=== PATIENT | female | born 1965 | race Caucasian/White ===

== ENCOUNTER 2024-12-31 16:32 | Emergency (ER) | payer OTHER, SELFPAY ==
--- NOTE | 2024-12-31 16:32 | ED.FEMALEGU ---
HPI - Female Genitourinary General Chief complaint: Urogenital-Female Stated complaint: Urinary Problem Time Seen by Provider: 12/31/24 16:45 Source: patient, RN notes reviewed and old records reviewed Mode of arrival: ambulatory Limitations: no limitations History of Present Illness HPI Narrative: 59-year-old female presents to the [facility] with 2 day history of urgency, frequency, pressure with urination. Denies abdominal pain, fevers, nausea, vomiting. Denies back pain. No CVA tenderness Related Data Home Medications ?Medication ?Instructions ?Recorded ?Confirmed ?Last Taken ?Type Humalog Pen 12/31/24 Unknown History Ozempic 12/31/24 Unknown History aspirin 12/31/24 Unknown History atorvastatin 12/31/24 Unknown History carvedilol 12/31/24 Unknown History citalopram 12/31/24 Unknown History ezetimibe 12/31/24 Unknown History lisinopril 12/31/24 Unknown History potassium 12/31/24 Unknown History Allergies Allergy/AdvReac Type Severity Reaction Status Date / Time hydrocodone AdvReac Intermediate vomiting Verified 08/03/18 11:00 Review of Systems Review of Systems: All systems reviewed & are unremarkable except as noted in HPI and below Constitutional: Constitutional: Reports no additional constitutional complaints ENT: Reports system reviewed and no additional complaints, except as documented Cardiovascular: Cardiovascular: Reports no additional cardiovascular complaints, Denies chest pain and Denies dyspnea Respiratory: Respiratory: Reports no additional respiratory complaints, Denies chest congestion, Denies cough and Denies dyspnea Genitourinary: Genitourinary: Reports as per HPI Musculoskeletal: Musculoskeletal: Reports no additional musculoskeletal complaints Integumentary/Breasts: Skin/Breast: Reports system reviewed and no additional complaints, except as docu PMFSH Past Medical History Medical History (Updated 12/31/24 @ 16:54 by Violette Freire APRN) History of high cholesterol History of high blood pressure Comments At the time of my signature, I reviewed and agree with the nursing past medical, surgical, social, and family history. There is no relevant family history pertinent to the patient complaint. Exam Const: General: cooperative, healthy appearing, comfortable, no acute distress, well developed, alert and well nourished Nutritional Appearance: well nourished Orientation/consciousness: patient oriented x3 Limitations: no limitations HENMT: Head: normal to inspection Eyes: General: appearance normal, both eyes and all related structures Alignment and Position: alignment normal Neck: Neck: normal visual inspection, full ROM, no lymphadenopathy and no meningeal signs Chest: Chest palpation & inspection: normal inspection of the chest Resp: Effort & Inspection: normal respiratory effort and able to speak in complete sentences Auscultation: clear to auscultation bilaterally, no crackles, no rales, no rhonchi and no wheezes Cardio: Rate: regular rate : General: Yes no CVA tenderness Back/Spine/Pelvis: Back: No back tenderness Skin: General skin exam: normal color and no rashes or lesions noted Neuro: General: patient oriented x3, gait normal, moves all extremities and no meningeal signs Cognition (Neuro): normal cognition Speech: normal speech Gait exam (Neuro): Normal gait present Extrem: General: normal to inspection, full ROM, capillary refill normal and normal gait Psych: Appearance: grossly normal and well kempt Mental Status: mental status grossly normal Speech and movement: Normal speech and movement present and Clear speech present Affect: normal affect Attitude: cooperative Course Course Level of Care: Express Care Visit Vital Signs Vital signs: Vital Signs Temperature 98 F 12/31/24 16:36 Pulse Rate 85 12/31/24 16:36 Respiratory Rate 18 12/31/24 16:36 Blood Pressure 141/74 H 12/31/24 16:36 Pulse Oximetry 97 12/31/24 16:36 Oxygen Delivery Room Air 12/31/24 16:36 Temperature 98 F 12/31/24 16:36 Pulse Rate 85 12/31/24 16:36 Respiratory Rate 18 12/31/24 16:36 Blood Pressure 141/74 H 12/31/24 16:36 Pulse Oximetry 97 12/31/24 16:36 Oxygen Delivery Room Air 12/31/24 16:36 Reviewed MDM - Female Genitourinary MDM Narrative Medical decision making narrative: Patient sitting in exam. Nontoxic vitals stable. Patient in no acute distress. Patient presents with concerns for UTI. Positive blood, positive leukocytes, will treat with Augmentin send for culture. Patient appropriate for outpatient treatment with close follow-up Discharge instructions reviewed with patient, as well as provided in writing per nursing staff. The instructions also include specific and strict return/GO TO THE ER as well as f/u information. All questions have been answered, and the patient deny any further questions with discharge and discharge plan. Some parts of this dictation were generated by voice recognition software and may contain typographical and/or grammatical inaccuracies. Differential Diagnosis Differential diagnosis: Likely urinary tract infection and cystitis Lab Data Labs: Lab Results 12/31/24 Range/Units 16:45 POC Urine Color Tea colored POC Urine Clarity Cloudy POC Urine pH 5.5 POC Ur Specif Hancock 1.020 POC Urine Protein 1+ (Negative) POC Ur Glucose (UA) Negative (Negative) POC Urine Ketones Negative (Negative) POC Urine Blood 3+ (Negative) POC Urine Nitrite Negative (Negative) POC Urine Bilirubin Negative (Negative) POC Urine Urobilinogen 0.2 POC U Leukocyte Esteras 3+ (Negative) Reviewed Critical Care Time Critical Care Time Critical Care Time: No Discharge Plan Discharge Clinical Impression: Urinary tract infection Qualifiers: Urinary tract infection type: acute cystitis Hematuria presence: with hematuria Qualified Code(s): N30.01 - Acute cystitis with hematuria Patient Disposition: Home Condition: Stable Instructions: Antibiotic Form, Urinary Tract Infection in Women (ED) Additional Instructions: Increased water intake Take Tylenol as needed for pain Take antibiotic as prescribed Today your urine dip showed a probability of a UTI. You have been prescribed an antibiotic. Your urine will be sent to our lab for a culture. If at that time a bacteria grows that is not covered by the antibiotic prescribed you will be notified. Follow-up with primary care For new or worsening symptoms go directly to the emergency room Patient Language: Rwandan Prescriptions: New amoxicillin-pot clavulanate 875-125 mg tablet 1 tablet PO Q12H Qty: 10 0RF No Action atorvastatin citalopram Ozempic aspirin lisinopril Humalog Pen carvedilol ezetimibe potassium Follow-up/Referrals: Luis Miguel,Romaine Dawn MD [Primary Care Provider] - 2 Weeks (express care follow up ) Stand Alone Forms: Work/School Release IP Time of Disposition: 16:50
--- OUTSIDE RECORDS SUMMARY | 2024-12-31 16:33 | XMS_ITS | Encounter Summary ---
Author Organization [facility] Address [address] [place] [address] Phone Care Team Providers Care Licensing Specialist Name Role Phone Romaine Bolanos MD Primary Care Provider [phone] Curry Garcia MD Unavailable [phone] Robbin Shelton PAC Unavailable [phone] Reason for Visit * Reason Comments Medication Refill Encounter Details Date Type Department Care Team (Late st Contact Info) Description 09/25/2020 Refill [facility] - Internal Medicine [facility] [address] [place] [address] Romaine Bolanos MD [address] [place] [address] Medication Refill Social History Tobacco Use Types Packs/Day Years Used Date Smoking Tobacco: Every Day Cigarettes 1 30 Smokeless Tobacco: Never Alcohol Use Standard Drinks/Week Comments Yes 0 (1 standard drink = 0.6 oz pur e alcohol) rarely PHQ-2 Answer Date Recorded Total Score - Questions 1-9 0 06/23 Comments No Sex and Gender Information Value Date Recorded Sex Assigned at Not on file Legal Sex Female 10:23 PM CDT Gender Identity Not on file Sexual Orientation Not on file documented as of this encounter Miscellaneous Notes * Telephone Encounter - Dyana Shin RN - 09/25/2020 9:23 AM CST Please review and sign. ADING MACHINE OPERATOR documented in this encounter Plan of Treatment Upcoming Encounters Date Type Department Care Team (Late st Contact Info) Description 01/07/2025 2:30 PM CDT Physical Therapy [facility] at [facility] [address], [address] [place] [address] Joan Kaufman, PAC [address] [place] [address] Zainab Butt, PT [place] Discharge Disposition: Discharged to home or Selfcare 01/10/2025 10:00 AM CDT Hospital [facility] [address] [place] [address] Katherine Mijares MD PhD [address] [place] [address] 01/10/2025 10:00 AM CDT - 01/10/2025 10:20 AM CDT Surgery [facility] [address] [place] [address] Katherine Mijares MD PhD [address] [place] [address] CATARACT EXTRACTION WITH INTRAOCULAR LENS PLACEMENT, RIGHT EYE 01/13/2025 3:30 PM CDT Office Visit [facility] - Internal Medicine - [place] [address] [place] [address] Romaine Bolanos MD [address] [place] [address] 01/14/2025 2:30 PM CDT Physical Therapy [facility] at [facility] [address], [address] [place] [address] Joan Kaufman, PAC [address] [place] [address] Zainab Butt, PT [place] Scheduled Procedures Name Priority Associated Diagnoses Date/Ti me CATARACT EXTRACTION WITH IOL IMPLANT VISUALLY SIGNIFICANT CATARACT, RIGHT EYE 01/10/2025 10:00 AM CDT documented as of this encounter Visit Diagnoses Not on filedocumented in this encounter Additional Health Concerns Infection Onset Date Last Indicated Resolved Time Respiratory Rule Out - RPA 11/13/2022 11/13/2022 0 11/13/2022 10:28 AM THREADING MACHINE OPERATOR Respiratory Rule Out - RPA 11/28/2022 11/28/2022 0 11/28/2022 1:36 PM THREADING MACHINE OPERATOR Assessment Noted Time PHQ-9 Depression Total Score: 0 07/20/20 10:00 AM CDT documented as of this encounter Care Teams Licensing Specialist Relationship Specialty Start Date End Date Romaine Bolanos MD [address] [place] [address] PCP - General Internal Medicine 12/05/15 Curry Garcia MD #[address] [address] General Surgery 12/06/15 Robbin Shelton, PAC [address] [place] [address] Physician Life Enrichment Manager Physician Life Enrichment Manager 02/11/24 documented as of this encounter
--- OUTSIDE RECORDS SUMMARY | 2024-12-31 16:33 | XMS_ITS | Encounter Summary ---
Author Organization [facility] Address [address] [place] [address] Phone Care Team Providers Care Front Desk Monitor Name Role Phone Romaine Bolanos MD Primary Care Provider [phone] Curry Garcia MD Unavailable [phone] Robbin Shelton PAC Unavailable [phone] Reason for Visit * Reason Comments Medication Refill Encounter Details Date Type Department Care Team (Late st Contact Info) Description 01/14/2021 Refill [facility] - Internal Medicine [facility] [address] [place] [place] [address] Romaine Bolanos MD [address] [place] [address] Medication Refill Social History Tobacco Use Types Packs/Day Years Used Date Smoking Tobacco: Every Day Cigarettes 1 30 Smokeless Tobacco: Never Alcohol Use Standard Drinks/Week Comments Yes 0 (1 standard drink = 0.6 oz pur e alcohol) rarely PHQ-2 Answer Date Recorded Total Score - Questions 1-9 0 06/23 Sexually Active Control Partners Comments Not Currently Comments No Sex and Gender Information Value Date Recorded Sex Assigned at Not on file Legal Sex Female 10:23 PM CDT Gender Identity Not on file Sexual Orientation Not on file COVID-19 Exposure Response Date Recorded In the last month, have you been in contact with someone who was confirmed or suspected to have Coronavirus / COVID-19? No / Unsure 12/26/2020 2:11 PM CDT documented as of this encounter Miscellaneous Notes * Telephone Encounter - Dyana Shin RN - 01/15/2021 8:15 AM CDT Please review and sign. documented in this encounter Plan of Treatment Upcoming Encounters Date Type Department Care Team (Late st Contact Info) Description 01/07/2025 2:30 PM CDT Physical Therapy [facility] at [facility] [address] [facility], [address] [address] Joan Kaufman, PAC [address] [place] [address] Zainab Butt, PT [place] Discharge Disposition: Discharged to home or Selfcare 01/10/2025 10:00 AM CDT Hospital [facility] [address] [place] [address] Katherine Mijares MD PhD [address] [place] [address] 01/10/2025 10:00 AM CDT - 01/10/2025 10:20 AM CDT Surgery [facility] [address] [place] [address] Katherine Mijares MD PhD [address] [place] [address] CATARACT EXTRACTION WITH INTRAOCULAR LENS PLACEMENT, RIGHT EYE 01/13/2025 3:30 PM CDT Office Visit [facility] - Internal Medicine - [place] [address] [place] [address] Romaine Bolanos MD [address] [place] [address] 01/14/2025 2:30 PM CDT Physical Therapy [facility] at [facility] [address] [facility], [facility] [address] [place] [address] Joan Kaufman, PAC [address] [place] [address] Zainab Butt, PT [place] Scheduled Procedures Name Priority Associated Diagnoses Date/Ti me CATARACT EXTRACTION WITH IOL IMPLANT VISUALLY SIGNIFICANT CATARACT, RIGHT EYE 01/10/2025 10:00 AM CDT documented as of this encounter Visit Diagnoses Not on filedocumented in this encounter Additional Health Concerns Infection Onset Date Last Indicated Resolved Time Respiratory Rule Out - RPA 11/13/2022 11/13/2022 0 11/13/2022 10:28 AM WINDING INSPECTOR AND TESTER Respiratory Rule Out - RPA 11/28/2022 11/28/2022 0 11/28/2022 1:36 PM WINDING INSPECTOR AND TESTER Assessment Noted Time PHQ-9 Depression Total Score: 0 07/20/20 10:00 AM CDT documented as of this encounter Care Teams Front Desk Monitor Relationship Specialty Start Date End Date Romaine Bolanos MD [address] [place] [address] PCP - General Internal Medicine 12/05/15 Curry Garcia MD #2 [facility] [address] [place] [address] General Surgery 12/06/15 Robbin Shelton PAC [address] [place] [address] Physician Carbonation Equipment Tender Physician Carbonation Equipment Tender 02/11/24 documented as of this encounter
--- OUTSIDE RECORDS SUMMARY | 2024-12-31 16:33 | XMS_ITS | Encounter Summary ---
Author Organization [facility] Address [address] [place] [address] Phone Care Team Providers Care Lead Manufacturing Technician Name Role Phone Romaine Bolanos MD Primary Care Provider [phone] Curry Garcia MD Unavailable [phone] Robbin Shelton PAC Unavailable [phone] Reason for Visit * Reason Comments Medication Refill Encounter Details Date Type Department Care Team (Late st Contact Info) Description 10/26/2023 Refill [facility] - Internal Medicine [facility] [address] [facility] [facility] [place] [address] Romaine Bolanos MD [address] [place] [address] Medication Refill Social History Tobacco Use Types Packs/Day Years Used Date Smoking Tobacco: Every Day Cigarettes 1 30 Passive Smoke Exposure: Current Smokeless Tobacco: Never Alcohol Use Standard Drinks/Week Comments Yes 0 (1 standard drink = 0.6 oz pur e alcohol) rarely PHQ-2 Answer Date Recorded Total Score - Questions 1-9 0 01/2023 Sexually Active Control Partners Comments Not Currently Comments No Sex and Gender Information Value Date Recorded Sex Assigned at Not on file Legal Sex Female 10:23 PM CDT Gender Identity Not on file Sexual Orientation Not on file documented as of this encounter Miscellaneous Notes * Telephone Encounter - Violette Ramos RN - 10/27/2023 9:30 AM CST Medication failed the protocol, provider to review and approve the medication order if appropriate. Requested Prescriptions Pending Prescriptions Disp Refills lisinopril (PRINIVIL, ZESTRIL) 20 MG Tablet [Pharmacy Med Name: LISINOPRIL TABS 20MG] 90 Tablet 3 Sig: TAKE 1 TABLET DAILY CASSANDRA Inhibitors Protocol Failed - 10/26/2023 7:56 PM Failed - Serum potassium on record in past 12 months POTASSIUM Date Value Ref Range Status 09/20/2022 3.8 3.5 - 5.1 mmol/L Final Failed - GFR on record in past 12 months GFR, EST. NONAFRICAN Date Value Ref Range Status 09/20/2022 >60 >=60 Final Passed - Blood pressure on record in past 12 months Clinician-entered: BP Readings from Last 3 Encounters: 08/26/23 138/70 08/03/23 132/72 07/14/23 140/78 Patient-entered: No data recorded Passed - No positive test in the past 12 months or most recent test was negative Passed - Visit with relevant provider in past 12 months or upcoming 90 days Recent Visits Date Type Provider Dept 08/26/23 Office Visit Romaine Bolanos MD [facility] 07/14/23 Appointment Romaine Bolanos MD [facility] [place] 05/20/23 Office Visit Romaine Bolanos MD [facility] 12/19/22 Office Visit Romaine Bolanos MD [facility] 12/05/22 Telemedicine Romaine Bolanos MD [facility] [place] 11/28/22 Telemedicine Romaine Bolanos MD [facility] Showing recent visits within past 365 days and meeting all other requirements Future Appointments Date Type Provider Dept 11/19/23 Appointment Corrie Gandhi [facility] [place] 11/25/23 Appointment Romaine Bolanos MD [facility] Showing future appointments within next 90 days and meeting all other requirements Passed - No active on record ING MACHINE OPERATOR documented in this encounter Plan of Treatment Upcoming Encounters Date Type Department Care Team (Late st Contact Info) Description 01/07/2025 2:30 PM CDT Physical Therapy [facility] Rehab at [address], [address] [place] [address] Joan Kaufman, PAC [address] [place] [address] Zainab Butt, PT [place] Discharge Disposition: Discharged to home or Selfcare 01/10/2025 10:00 AM CDT Hospital [facility] [address] [place] [address] Katherine Mijares MD PhD [address] [place] [address] 01/10/2025 10:00 AM CDT - 01/10/2025 10:20 AM CDT Surgery [facility] Per[facility] [address] [place] [address] Katherine Mijares MD PhD [address] [place] [address] CATARACT EXTRACTION WITH INTRAOCULAR LENS PLACEMENT, RIGHT EYE 01/13/2025 3:30 PM CDT Office Visit [facility] - Internal Medicine - [place] [address] [place] [address] Romaine Bolanos MD [address] [place] [address] 01/14/2025 2:30 PM CDT Physical Therapy [facility] at [facility] [address] [facility], [address] [place] [address] Joan Kaufman, PAC [address] [place] [address] Zainab Butt, PT [place] Scheduled Procedures Name Priority Associated Diagnoses Date/Ti me CATARACT EXTRACTION WITH IOL IMPLANT VISUALLY SIGNIFICANT CATARACT, RIGHT EYE 01/10/2025 10:00 AM CDT documented as of this encounter Visit Diagnoses Not on filedocumented in this encounter Additional Health Concerns Assessment Noted Time PHQ-9 Depression Total Score: 0 08/26/20 23 3:03 PM FOILING MACHINE OPERATOR documented as of this encounter Care Teams Lead Manufacturing Technician Relationship Specialty Start Date End Date Romaine Bolanos MD [address] [place] [address] PCP - General Internal Medicine 12/05/15 Curry Garcia MD #[address] [address] General Surgery 12/06/15 Robbin Shelton PAC [address] [place] [address] Physician Fisher Eel Physician Fisher Eel 02/11/24 documented as of this encounter
--- OUTSIDE RECORDS SUMMARY | 2024-12-31 16:33 | XMS_ITS | Encounter Summary ---
Author Organization [facility] Address [address] [place] [address] Phone Care Team Providers Care Inspector Assemblies And Installations Name Role Phone Romaine Bolanos MD Primary Care Provider [phone] Curry Garcia MD Unavailable [phone] Robbin Shelton PAC Unavailable [phone] Reason for Visit * Reason Comments Medication Refill Encounter Details Date Type Department Care Team (Late st Contact Info) Description 11/15/2020 Refill [facility] - Internal Medicine [facility] [address] [place] [address] Romaine Bolanos MD [address] [place] [address] Medication Refill Social History Tobacco [...] have Coronavirus / COVID-19? No / Unsure 10/20/2020 2:16 PM ENRICHMENT DIRECTOR documented as of this encounter Miscellaneous Notes * Telephone Encounter - Dyana Shin RN - 11/15/2020 4:00 PM CST Please review and sign. CHMENT DIRECTOR documented in this encounter Plan of Treatment Upcoming Encounters Date Type Department Care Team (Late st Contact Info) Description 01/07/2025 2:30 PM CDT [facility] 200 [facility], [address] [address] Joan Kaufman, PAC [address] [place] [address] Zainab Butt, PT [place] Discharge Disposition: Discharged to home or Selfcare 01/10/2025 10:00 AM CDT [facility] 1 [place] [address] Katherine Mijares MD PhD [address] [place] [address] 01/10/2025 10:00 AM CDT - 01/10/2025 10:20 AM CDT [facility] [address] [place] [address] Katherine Mijares MD PhD [address] [place] [address] CATARACT EXTRACTION WITH INTRAOCULAR LENS PLACEMENT, RIGHT EYE 01/13/2025 3:30 PM CDT [facility] - [place] [address] [place] [address] Romaine Bolanos MD [address] [place] [address] 01/14/2025 2:30 PM CDT Physical Therapy [facility] at [facility] [address], [address] [place] [address] Joan Kaufman, PAC [address] [place] [address] Zainab Butt, PT [place] Scheduled Procedures Name Priority Associated Diagnoses Date/Ti me CATARACT EXTRACTION WITH IOL IMPLANT VISUALLY SIGNIFICANT CATARACT, RIGHT EYE 01/10/2025 10:00 AM CDT documented as of this encounter Visit Diagnoses Not on filedocumented in this encounter Additional Health Concerns Infection Onset Date Last Indicated Resolved Time Respiratory Rule Out - RPA 11/13/2022 11/13/2022 0 11/13/2022 10:28 AM ENRICHMENT DIRECTOR Respiratory Rule Out - RPA 11/28/2022 11/28/2022 0 11/28/2022 1:36 PM ENRICHMENT DIRECTOR Assessment Noted Time PHQ-9 Depression Total Score: 0 07/20/20 20 10:00 AM CDT documented as of this encounter Care Teams Inspector Assemblies And Installations Relationship Specialty Start Date End Date Romaine Bolanos MD [address] [place] [address] PCP - General Internal Medicine 12/05/15 Curry Garcia MD #2 [facility] [address] [place] [address] General Surgery 12/06/15 Robbin Shelton PAC [address] [place] [address] Physician Mortgage Manager Physician Mortgage Manager 02/11/24 documented as of this encounter
--- OUTSIDE RECORDS SUMMARY | 2024-12-31 16:33 | XMS_ITS | Encounter Summary ---
Author Organization [facility] Address [address] [place] [address] Phone Care Team Providers Care Curriculum And Assessment Coordinator Name Role Phone Romaine Bolanos MD Primary Care Provider [phone] Curry Garcia MD Unavailable [phone] Robbin Shelton PAC Unavailable [phone] Reason for Visit * Reason Comments Medication Refill Encounter Details Date Type Department Care Team (Late st Contact Info) Description 12/17/2020 Refill [facility] Medical [facility] - Internal Medicine [facility] [address] [place] [address] Romaine Bolanos MD [address] [place] [address] Medication Refill Social History Tobacco [...] Telephone Encounter - Dyana Shin RN - 12/18/2020 7:57 AM CDT Please review and sign. documented in this encounter Plan of Treatment Upcoming Encounters Date Type Department Care Team (Late st Contact Info) Description 01/07/2025 2:30 PM CDT Physical Therapy [facility] [address] [place] [address] Joan Kaufman, PAC [address] [place] [address] Zainab Butt, PT [place] Discharge Disposition: Discharged to home or Selfcare 01/10/2025 10:00 AM CDT Hospital [facility] [address] [place] [address] Katherine Mijares MD PhD [address]1 [place] [address] 01/10/2025 10:00 AM CDT - 01/10/2025 10:20 AM CDT Surgery [facility] [address] [place] [address] Katherine Mijares MD PhD #1 [place] [address] CATARACT EXTRACTION WITH INTRAOCULAR LENS PLACEMENT, RIGHT EYE 01/13/2025 3:30 PM CDT Office Visit [facility] Medical Group - Internal Medicine - [place] [address] [place] [id number] Romaine Bolanos MD [address] [place] [address] 01/14/2025 2:30 PM CDT Physical Therapy [facility] at [facility] [address] [place] [address] Joan Kaufman, PAC [address] [place] [address] Zainab Butt, PT [place] Scheduled Procedures Name Priority Associated Diagnoses Date/Ti me CATARACT EXTRACTION WITH IOL IMPLANT VISUALLY SIGNIFICANT CATARACT, RIGHT EYE 01/10/2025 10:00 AM CDT documented as of this encounter Visit Diagnoses Not on filedocumented in this encounter Additional Health Concerns Infection Onset Date Last Indicated Resolved Time Respiratory Rule Out - RPA 11/13/2022 11/13/2022 0 11/13/2022 10:28 AM BOWL TOPPER Respiratory Rule Out - RPA 11/28/2022 11/28/2022 0 11/28/2022 1:36 PM BOWL TOPPER Assessment Noted Time PHQ-9 Depression Total Score: 0 07/20/20 20 10:00 AM CDT documented as of this encounter Care Teams Curriculum And Assessment Coordinator Relationship Specialty Start Date End Date Romaine Bolanos MD [address] [place] [address] PCP - General Internal Medicine 12/05/15 Curry Garcia MD #[address] [address] General Surgery 12/06/15 Robbin Shelton, ARA [address]1 [place] [address] Physician Aquaculture And Fisheries Professor Physician Aquaculture And Fisheries Professor 02/11/24 documented as of this encounter
--- OUTSIDE RECORDS SUMMARY | 2024-12-31 16:33 | XMS_ITS | Encounter Summary ---
Author Organization [facility] Address [address] [place] [address] Phone Care Team Providers Care Supervisor Die Casting Name Role Phone Romaine Bolanos MD Primary Care Provider [phone] Curry Garcia MD Unavailable [phone] Robbin Shelton PAC Unavailable [phone] Reason for Visit * Reason Comments Medication Refill Encounter Details Date Type Department Care Team (Late st Contact Info) Description 05/23/2022 Refill [facility] - Internal Medicine [facility] [address] [place] [address] Romaine Bolanos MD [address] [place] [address] Medication Refill Social History Tobacco Use Types Packs/Day Years Used Date Smoking Tobacco: Every Day Cigarettes 1 30 Smokeless Tobacco: Never Alcohol Use Standard Drinks/Week Comments Yes 0 (1 standard drink = 0.6 oz pur e alcohol) rarely PHQ-2 Answer Date Recorded Total Score - Questions 1-9 0 11/2020 Sexually Active Control Partners Comments Not Currently Comments No Sex and Gender Information Value Date Recorded Sex Assigned at Not on file Legal Sex Female 10:23 PM CDT Gender Identity Not on file Sexual Orientation Not on file COVID-19 Exposure Response Date Recorded In the last 10 days, have la u been in contact with someone who was confirmed or suspected to have Coronavirus/COVID-19? No / Unsure 04/24/2022 6:05 AM CDT documented as of this encounter Miscellaneous Notes * Telephone Encounter - Violette Ramos RN - 05/24/2022 8:33 AM CDT Medication failed the protocol, provider to review and approve the medication order if appropriate. Requested Prescriptions Pending Prescriptions Disp Refills Jardiance 10 MG Tablet [Pharmacy Med Name: JARDIANCE TABS 10MG] 90 Tablet 3 Sig: TAKE 1 TABLET DAILY SGLT2 Inhibitors Protocol Failed - 05/23/2022 7:54 PM Failed - HgA1C on record in past 6 months HGB-A1C Date Value Ref Range Status 07/25/2021 7.0 (H) 4.0 - 6.0 % Final 01/16/2021 7.3 % Final Failed - GFR greater than or equal to 30 in past 6 months GFR, EST. NONAFRICAN Date Value Ref Range Status 07/25/2021 >60 >=60 Final Passed - No test in the past 12 months or most recent test was negative Passed - No active on record Passed - Visit with relevant provider in past 6 months or upcoming 90 days Recent Visits Date Type Provider Dept 02/06/22 Office Visit Romaine [facility] MD [facility] [place] Showing recent visits within past 182 days and meeting all other requirements Future Appointments Date Type Provider Dept 05/28/22 Appointment Romaine Bolanos MD [facility] [place] Showing future appointments within next 90 days and meeting all other requirements documented in this encounter Plan of Treatment Upcoming Encounters Date Type Department Care Team (Late st Contact Info) Description 01/07/2025 2:30 PM CDT Physical Therapy [facility] [address] [place] [phone] Joan Kaufman, PAC [address] [place] [address] Zainab Butt, PT [place] Discharge Disposition: Discharged to home or Selfcare 01/10/2025 10:00 AM CDT Hospital Encounter [facility] 1 [place] [address] Katherine Mijares MD PhD [address]1 [place] [address] 01/10/2025 10:00 AM CDT - 01/10/2025 10:20 AM CDT Surgery [facility] 1 [place] [address] Katherine Mijares MD PhD [address] [place] [address] CATARACT EXTRACTION WITH INTRAOCULAR LENS PLACEMENT, RIGHT EYE 01/13/2025 3:30 PM CDT [facility] [place] [address] [place] [address] Romaine Bolanos MD [address] [place] [address] 01/14/2025 2:30 PM CDT Physical Therapy [facility] at [facility] [place] [address] [place] [address] Joan Kaufman, PAC [address] [place] [address] Zainab Butt, PT [place] Scheduled Procedures Name Priority Associated Diagnoses Date/Ti me CATARACT EXTRACTION WITH IOL IMPLANT VISUALLY SIGNIFICANT CATARACT, RIGHT EYE 01/10/2025 10:00 AM CDT documented as of this encounter Visit Diagnoses Not on filedocumented in this encounter Additional Health Concerns Infection Onset Date Last Indicated Resolved Time Respiratory Rule Out - RPA 11/13/2022 11/13/2022 0 11/13/2022 10:28 AM SENIOR TECHNICAL BUSINESS ANALYST Respiratory Rule Out - RPA 11/28/2022 11/28/2022 0 11/28/2022 1:36 PM SENIOR TECHNICAL BUSINESS ANALYST Assessment Noted Time PHQ-9 Depression Total Score: 0 07/25/20 21 12:00 PM CDT documented as of this encounter Care Teams Supervisor Die Casting Relationship Specialty Start Date End Date Romaine Bolanos MD [address] [place] [address] PCP - General Internal Medicine 12/05/15 Curry Garcia MD [address] [address] General Surgery 12/06/15 Robbin Sheltno PAC [address] [place] [address] Physician Aquatic Ecologist Physician Aquatic Ecologist 02/11/24 documented as of this encounter
--- OUTSIDE RECORDS SUMMARY | 2024-12-31 16:33 | XMS_ITS | Encounter Summary ---
Author Organization [facility] Address [address] [place] [address] Phone Care Team Providers Care Mineral Resources Inspector Name Role Phone Romaine Bolanos MD Primary Care Provider [phone] Curry Garcia MD Unavailable [phone] Robbin Shelton PAC Unavailable [phone] Reason for Visit * Reason Comments Medication Refill Encounter Details Date Type Department Care Team (Late st Contact Info) Description 02/01/2024 Refill [facility] Medical Group - Internal Medicine [facility] [address] [place] [address] Romaine Bolanos MD [address] [place] [address] Medication Refill Social History Tobacco Use Types Packs/Day Years Used Date Smoking Tobacco: Every Day Cigarettes 1 30 Passive Smoke Exposure: Current Smokeless Tobacco: Never Alcohol Use Standard Drinks/Week Comments Yes 0 (1 standard drink = 0.6 oz pur e alcohol) rarely [facility] Utilities Answer Date Recorded In the past 12 months has e electric, gas, oil, or water company threatened to shut off services in your home? No 11/25/2023 Social Connection and Isolat ion Panel [NHANES] Answer Date Recorded In a typical week, how many times do you talk on the phone with family, friends, or neighbors? More than three times a week 11/25/2023 How often do you get togethe r with friends or relatives? More than three times a week 11/25/2023 How often do you attend chur or christianity services? More than 4 times per year 11/25/2023 Do you belong to any clubs o r organizations such as judaism groups, unions, fraternal or athletic groups, or school groups? Yes 11/25/2023 How often do you attend meet ings of the clubs or organizations you belong to? More than 4 times per year 11/25/2023 Are you , , di vorced, , never , or living with a partner? 11/25/2023 AUDIT-C Answer Date Recorded Q1: How often do you have a drink containing alcohol? Never 11/25/2023 Q2: How many drinks containi ng alcohol do you have on a typical day when you are drinking? Patient does not drink Q3: How often do you have si x or more drinks on one occasion? Never 11/25/2023 Overall Financial Resource Strain (CARDIA) Answe r Date Recorded How hard is it for you to pa y for the very basics like food, housing, medical care, and heating? Not hard at all 11/25/2023 PHQ-2 Answer Date Recorded Total Score - Questions 1-9 0 01/2024 [facility] - Occupational Stress Questionnaire Answer Date Recorded Do you feel stress - tense, restless, nervous, or anxious, or unable to sleep at night because your mind is troubled all the time - these days? Not at all 11/25/2023 Exercise Vital Sign Answer Date Recorde d On average, how many days pe r week do you engage in moderate to strenuous exercise (like a brisk walk)? 0 days 11/25/2023 On average, how many minutes do you engage in exercise at this level? 0 min 11/25/2023 Hunger Vital Sign Answer Date Recorded Within the past 12 months, y ou worried that your food would run out before you got the money to buy more. Never true 11/25/19 24 Within the past 12 months, t he food you bought just didn't last and you didn't have money to get more. Never true 11/25/2023 PRAPARE - Transportation Answer Date Re corded In the past 12 months, has l ack of transportation kept you from medical appointments or from getting medications? No 01/2024 In the past 12 months, has l ack of transportation kept you from meetings, work, or from getting things needed for daily living? No 11/25/2023 Housing Stability Vital Sign Answer Wesley e Recorded In the last 12 months, was t here a time when you were not able to pay the mortgage or rent on time? No 11/25/2023 In the last 12 months, how many places have you lived? 2 11/25/2023 In the last 12 months, was t here a time when you did not have a steady place to sleep or slept in a longterm (including now)? No 11/25/2023 Sexually Active Control Partners Comments Not Currently Comments No Sex and Gender Information Value Date Recorded Sex Assigned at Not on file Legal Sex Female 10:23 PM CDT Gender Identity Not on file Sexual Orientation Not on file documented as of this encounter Miscellaneous Notes * Telephone Encounter - Violette Ramos RN - 02/02/2024 8:40 AM CDT Medication(s) [facility] and signed per [facility] Medication Refill Standing Order for Pediatricand Adult Patients. Requested Prescriptions Pending Prescriptions Disp Refills atorvastatin (LIPITOR) 80 MG Tablet [Pharmacy Med Name: ATORVASTATIN TABS 80MG] 90 Tablet 3 Sig: TAKE 1 TABLET NIGHTLY Hmg CoA Reductase Inhibitors Protocol Passed - 02/01/2024 8:19 AM Passed - Visit with relevant provider in past 12 months or upcoming 90 days Recent Visits Date Type Provider Dept 12/25/23 Office Visit Romaine Bolanos MD [facility] 11/25/23 Office Visit Romaine Bolanos MD [facility] 08/26/23 Office Visit Romaine Bolanos MD [facility] 07/14/23 Appointment Romaine Bolanos MD [facility] 05/20/23 Office Visit Romaine Bolanos MD [facility] Showing recent visits within past 365 days and meeting all other requirements Future Appointments Date Type Provider Dept 03/16/24 Appointment [facility] [place] Showing future appointments within next 90 days and meeting all other requirements Passed - Lipid panel in past 12 months LDL Date Value Ref Range Status 11/25/2023 61 <130 mg/dL Final HDL CHOLESTEROL Date Value Ref Range Status 11/25/2023 31 (L) >40 mg/dL Final CHOLESTEROL Date Value Ref Range Status 11/25/2023 130 <200 mg/dL Final TRIGLYCERIDES Date Value Ref Range Status 11/25/2023 192 (H) <150 mg/dL Final VLDL Date Value Ref Range Status 11/25/2023 38 10 - 50 mg/dL Final CHOL/HDL RATIO Date Value Ref Range Status 11/25/2023 4.2 0.0 - 4.4 Final NON-HDL CHOLESTEROL Date Value Ref Range Status 11/25/2023 99 <130 mg/dL Final Passed - CMP in past 12 months SODIUM Date Value Ref Range Status 11/25/2023 143 136 - 145 mmol/L Final POTASSIUM Date Value Ref Range Status 11/25/2023 2.9 (L) 3.5 - 5.1 mmol/L Final CHLORIDE Date Value Ref Range Status 11/25/2023 100 98 - 107 mmol/L Final CO2, VENOUS Date Value Ref Range Status 11/25/2023 33 (H) 22 - 30 mmol/L Final ANION GAP Date Value Ref Range Status 11/25/2023 12.9 <18.0 mmol/L Final GLUCOSE Date Value Ref Range Status 11/25/2023 111 (H) 70 - 99 mg/dL Final BUN Date Value Ref Range Status 11/25/2023 8 (L) 10 - 20 mg/dL Final CREATININE, BLOOD Date Value Ref Range Status 11/25/2023 0.74 0.60 - 1.00 mg/dL Final BUN/CREATININE RATIO Date Value Ref Range Status 11/25/2023 11 (L) 12 - 20 ratio Final TOTAL PROTEIN Date Value Ref Range Status 11/25/2023 7.4 6.3 - 8.2 g/dL Final ALBUMIN Date Value Ref Range Status 11/25/2023 3.6 3.5 - 5.0 g/dL Final A/G RATIO Date Value Ref Range Status 11/25/2023 0.9 (L) 1.0 - 2.2 Final CALCIUM Date Value Ref Range Status 11/25/2023 8.8 8.7 - 10.5 mg/dL Final T BILI Date Value Ref Range Status 11/25/2023 0.7 0.2 - 1.2 mg/dL Final SGOT (AST) Date Value Ref Range Status 11/25/2023 31 5 - 34 U/L Final SGPT (ALT) Date Value Ref Range Status 11/25/2023 22 0 - 55 U/L Final ALKALINE PHOSPHATASE Date Value Ref Range Status 11/25/2023 108 40 - 150 U/L Final GFR, EST. NONAFRICAN Date Value Ref Range Status 11/25/2023 >60 >=60 Final GFR, EST. Date Value Ref Range Status 11/25/2023 >60 >=60 Final GFR, ESTIMATED Date Value Ref Range Status 11/25/2023 >60 >=60 Final Comment: Creatinine Clearance is the preferred criteria for selecting drug dose adjustments in renally impaired patients. The GFR is provided as additional pertinent clinical information. GFR is reported in mL/min/1.73 sq m. Calculation based on the Chronic Kidney Disease Epidemiology Collaboration (CKD- EPI) equation refitwithout adjustment for race. IS THE PATIENT REQUIRED TO BE FASTING? Date Value Ref Range Status 11/25/2023 No Final lisinopril (PRINIVIL, ZESTRIL) 20 MG Tablet [Pharmacy Med Name: LISINOPRIL TABS 20MG] 90 Tablet 3 Sig: TAKE 1 TABLET DAILY CASSANDRA Inhibitors Protocol Passed - 02/01/2024 8:19 AM Passed - Serum potassium on record in past 12 months POTASSIUM Date Value Ref Range Status 11/25/2023 2.9 (L) 3.5 - 5.1 mmol/L Final Passed - Blood pressure on record in past 12 months Clinician-entered: BP Readings from Last 3 Encounters: 01/18/24 138/80 12/25/23 130/66 11/25/23 130/68 Patient-entered: No data recorded Passed - Visit with relevant provider in past 12 months or upcoming 90 days Recent Visits Date Type Provider Dept 12/25/23 Office Visit Romaine Bolanos MD [facility] 11/25/23 Office Visit Romaine Bolanos MD [facility] 08/26/23 Office Visit Romaine Bolanos MD [facility] 07/14/23 Appointment Romaine Bolanos MD [facility] 05/20/23 Office Visit Romaine Bolaons MD [facility] Showing recent visits within past 365 days and meeting all other requirements Future Appointments Date Type Provider Dept 03/16/24 Appointment Romaine Bolanos MD [facility] Showing future appointments within next 90 days and meeting all other requirements Passed - GFR on record in past 12 months GFR, EST. NONAFRICAN Date Value Ref Range Status 11/25/2023 >60 >=60 Final documented in this encounter Plan of Treatment Upcoming Encounters Date Type Department Care Team (Late st Contact Info) Description 01/07/2025 2:30 PM CDT Physical Therapy [facility] [address] [place] [address] Joan Kaufman, PAC [address] [address] Zainab Butt, PT [place] Discharge Disposition: Discharged to home or Selfcare 01/10/2025 10:00 AM CDT Hospital Encounter [facility] Per[facility] 1 [place] [address] Katherine Mijares MD PhD #1 [place] [address] 01/10/2025 10:00 AM CDT - 01/10/2025 10:20 AM CDT Surgery [facility] 1 [place] [address] Katherine Mijares MD PhD [address] [place] [address] CATARACT EXTRACTION WITH INTRAOCULAR LENS PLACEMENT, RIGHT EYE 01/13/2025 3:30 PM CDT Office Visit [facility] Medical Group - Internal Medicine - [place] [address] [place] [address] Romaine Bolanos MD [address] [place] [address] 01/14/2025 2:30 PM CDT Physical Therapy [facility] at [facility] [address] [place] [address] Joan Kaufman, PAC [address] [place] [address] Zainab Butt, PT [place] Scheduled Procedures Name Priority Associated Diagnoses Date/Ti me CATARACT EXTRACTION WITH IOL IMPLANT VISUALLY SIGNIFICANT CATARACT, RIGHT EYE 01/10/2025 10:00 AM CDT documented as of this encounter Visit Diagnoses Not on filedocumented in this encounter Additional Health Concerns Assessment Noted Time PHQ-9 Depression Total Score: 0 11/25/19 3:06 PM SPLITTING MACHINE OPERATOR documented as of this encounter Care Teams Mineral Resources Inspector Relationship Specialty Start Date End Date Romaine Bolanos MD [address] [place] [address] PCP - General Internal Medicine 12/05/15 Curry Garcia MD [address] [facility] [address] [place] [address] General Surgery 12/06/15 Robbin Shelton PAC #1 [place] [address] Physician Hydraulics Teacher Physician Hydraulics Teacher 02/11/24 documented as of this encounter
--- OUTSIDE RECORDS SUMMARY | 2024-12-31 16:33 | XMS_ITS | Clinical Summary ---
Author Organization [facility] Address [address] [place] [address] Care Team Providers Care Research Greenhouse Supervisor Name Role Phone Rodger Bolanos MD Primary Care Provider [phone] Source Comments [facility],non-owned Affiliates and Associated Physician Practices is amultiple site organization consisting of ambulatory clinics and hospital sitesin [place], [place], [place] and [place]. This disclosure is being madepursuant to the Care Everywhere program and may not contain all information available regarding this patient. Last updated 18.[facility] Allergies No known active allergies Medications * Be aware that medications may not be up to date on this document. Alwaysverify current medications with the patient. Medication Sig Dispensed Refills Start Date End Date Status carvedilol (COREG) 12.5 MG tablet Take 12.5 mg by mouth 2 times daily with morning and evening meal Active atorvastatin (LIPITOR) 80 MG tablet Take 80 mg by mouth at bedtime Active empagliflozin (JARDIANCE) 10 MG tablet Take 10 mg by mouth once daily Active Aspirin (ASPIR-LOW) 81 MG Active escitalopram (LEXAPRO) 5 MG tablet Take 5 mg by mouth once daily Active lisinopril (PRINIVIL; ZESTRIL) 20 MG tablet Take 20 mg by mouth once daily Active omeprazole (PRILOSEC) 20 MG capsule Take 20 mg by mouth daily before breakfast Activ e glipiZIDE (GLUCOTROL) 10 MG tablet Take 10 mg by mouth daily before breakfast Activ e Insulin Lispro (HUMALOG KWIKPEN) 100 UNIT/ML Inject 30 Units subcutaneously Active Social History Tobacco Use Types Packs/Day Years Used Date Smoking Tobacco: Every Day Smokeless Tobacco: Never Sex and Gender Information Value Date Recorded Sex Assigned at Not on file Gender Identity Not on file Sexual Orientation Not on file Last Filed Vital Signs Vital Sign Reading Time Taken Comments Blood Pressure 124/80 06/29/2019 4:25 PM CDT Pulse 74 06/29/2019 4:25 PM CDT Temperature 36.7 C (98.1 F) 06/29/2019 4:25 PM CDT Respiratory Rate - - Oxygen Saturation - - Inhaled Oxygen Concentration - - Weight 84.8 kg (187 lb) 06/29/2019 4:25 PM CDT Height 160 cm (5' 3 ) 06/29/2019 4:25 PM CDT Body Mass Index 33.13 06/29/2019 4:25 PM CDT Plan of Treatment Health Maintenance Due Date Last Done Comments COLOGUARD (AGES 45-75) - COL ON CA SCREENING 1967 COLON MONITORING 1967 COLONOSCOPY - COLON CA SCREENING 1967 CT COLONOGRAPHY - COLON CA SCREENING 1967 Colorectal Cancer Screening 1967 FIT - COLON CA SCREENING 1967 FLEX SIG - COLON CA SCREENING 1967 MAMMOGRAM 1967 PAP SMEAR 1967 HIV SCREENING 12/30/1982 HEPATITIS C SCREENING 12/26/1985 DTAP/TDAP/TD VACCINES (1 - Tdap) 12/30/1986 HEPATITIS B VACCINE (1 of 3 - 19+ 3-dose series) 12/30/1986 PNEUMOCOCCAL VACCINE 50+ (1 of 2 - PCV) 12/30/1986 PNEUMOCOCCAL VACCINE (1 of 2 - PCV) 12/30/1986 ZOSTER VACCINE (1 of 2) 12/30/2017 SCREENING FOR DIABETES 06/29/2019 COVID-19 VACCINE (1 - 2023-2 5 season) 2024 DEPRESSION SCREENING 09/22/2024 INFLUENZA VACCINE (Season Ended) 2025 07/31/20 15 HIB VACCINE Aged Out No longer eligi ble based on patient's age to complete this topic HPV VACCINE Aged Out No longer eligi ble based on patient's age to complete this topic MENINGOCOCCAL (Group B) VACC INE SHARED DECISION-MAKING Aged Out No longer eligibl e based on patient's age to complete this topic MENINGOCOCCAL GROUPS A/C/Y/W VACCINE Aged Out No longer eligible b ased on patient's age to complete this topic Care Teams Research Greenhouse Supervisor Relationship Specialty Start Date End Date Rodger Bolanos MD [address] [place] [id number] PCP - General 09/06/08
--- OUTSIDE RECORDS SUMMARY | 2024-12-31 16:33 | XMS_ITS | Encounter Summary ---
Author Organization [facility] Address [address] [place] [address] Phone Care Team Providers Care Director Database Name Role Phone Romaine Bolanos MD Primary Care Provider [phone]- [phone] Curry Garcia MD Unavailable [phone] Robbin Shelton PAC Unavailable [phone] Reason for Visit * Reason Comments Medication Refill Encounter Details Date Type Department Care Team (Late st Contact Info) Description 10/13/[address] [facility] Medical Group - Internal Medicine [facility] [address] [facility] [place] [place] [address] Romaine Bolanos MD [address] [place] [address] Medication Refill Social History Tobacco [...] Telephone Encounter - Dyana Shin RN - 10/13/2020 7:58 AM CST Please review and sign. LE ATTACHER documented in this encounter Plan of Treatment Upcoming Encounters Date Type Department Care Team (Late st Contact Info) Description 01/07/2025 2:30 PM CDT [facility] [address], [address] [place] [address] Joan Kaufman, PAC [address] [place] [address] Zainab Butt, PT [place] Discharge Disposition: Discharged to home or Selfcare 01/10/2025 10:00 AM CDT [facility] 1 [place] [address] Katherine Mijares MD PhD [address]1 [place] [address] 01/10/2025 10:00 AM CDT - 01/10/2025 10:20 AM CDT [facility] 1 [place] [address] Katherine Mijares MD PhD [address] [place] [address] CATARACT EXTRACTION WITH INTRAOCULAR LENS PLACEMENT, RIGHT EYE 01/13/2025 3:30 PM CDT Office Visit [facility] Medical Group - Internal Medicine - [place] [address] [place] [address] Romaine Bolanos MD [address] [place] [address] 01/14/2025 2:30 PM CDT [facility] [address] [place] [address] Joan Kaufman, PAC [address] [place] [address] Zainab Butt, PT [place] Scheduled Procedures Name Priority Associated Diagnoses Date/Ti me CATARACT EXTRACTION WITH IOL IMPLANT VISUALLY SIGNIFICANT CATARACT, RIGHT EYE 01/10/2025 10:00 AM CDT documented as of this encounter Visit Diagnoses Not on filedocumented in this encounter Additional Health Concerns Infection Onset Date Last Indicated Resolved Time Respiratory Rule Out - RPA 11/13/2022 11/13/2022 0 11/13/2022 10:28 AM BUCKLE ATTACHER Respiratory Rule Out - RPA 11/28/2022 11/28/2022 0 11/28/2022 1:36 PM BUCKLE ATTACHER Assessment Noted Time PHQ-9 Depression Total Score: 0 07/20/20 10:00 AM CDT documented as of this encounter Care Teams Director Database Relationship Specialty Start Date End Date Romaine Bolanos MD [address] [place] [address] PCP - General Internal Medicine 12/05/15 Curry Garcia MD [address] [address] General Surgery 12/06/15 Robbin Shelton, PAC [address] [place] [address] Physician Junior Programmer Analyst Physician Junior Programmer Analyst 02/11/24 documented as of this encounter
--- OUTSIDE RECORDS SUMMARY | 2024-12-31 16:33 | XMS_ITS | Encounter Summary ---
Author Organization [facility] Address [address] [place] [address] Phone Care Team Providers Care Fleet Service Manager Name Role Phone Romaine Bolanos MD Primary Care Provider [phone]- [phone] Curry Garcia MD Unavailable [phone] Robbin Shelton PAC Unavailable [phone] Reason for Visit * Reason Comments Medication Refill Encounter Details Date Type Department Care Team (Late st Contact Info) Description 01/16/[address] [facility] Medical Group - Internal Medicine [facility] [address] [place] [address] Romaine Bolanos MD [address] [place] [address] Medication Refill Social History Tobacco Use Types Packs/Day Years Used Date Smoking Tobacco: Every Day Cigarettes 1 30 Passive Smoke Exposure: Current Smokeless Tobacco: Never Alcohol Use Standard Drinks/Week Comments Yes 0 (1 standard drink = 0.6 oz pur e alcohol) rarely [facility] Utilities Answer Date Recorded In the past [...] How often do you attend chur or jew services? More than 4 times per year 11/25/2023 Do you belong to any clubs o r organizations such as synagogue groups, unions, fraternal or athletic groups, or [...] Total Score - Questions 1-9 0 01/2024 [facility] Occupational Stress Questionnaire Answer Date [...] place to sleep or slept in a jail (including now)? No 11/25/2023 Sexually Active Control Partners Comments Not Currently Comments No Sex and Gender Information Value Date Recorded Sex Assigned at Not on file Legal Sex Female 10:23 PM CDT Gender Identity Not on file Sexual Orientation Not on file documented as of this encounter Miscellaneous Notes * Telephone Encounter - Violette Ramos RN - 01/16/2024 8:34 AM CDT Medication(s) [facility] Medication Refill Standing Order for Pediatricand Adult Patients. Requested Prescriptions Pending Prescriptions Disp Refills carvedilol (COREG) 12.5 MG Tablet [Pharmacy Med Name: CARVEDILOL (IR) TABS 12.5MG] 180 Tablet 3 Sig: TAKE 1 TABLET TWICE A DAY Beta-Blockers Protocol Passed - 01/16/2024 1:08 AM Passed - BP on record in the past year Clinician-entered: BP Readings from Last 3 Encounters: 12/25/23 130/66 11/25/23 130/68 08/26/23 138/70 Patient-entered: No data recorded Passed - Visit with relevant provider in past 12 months or upcoming 90 days Recent Visits Date Type Provider Dept 12/25/23 Office [facility]/25[facility]23 Office [facility] 08/26/23 Office Visit Rom[facility] MD [facility] 07/14/23 Appointment Romaine Bolanos MD [facility] 05/20/23 Office Visit Romaien Bolanos MD [facility] Showing recent visits within past 365 days and meeting all other requirements Future Appointments Date Type Provider Dept 03/16/24 Appointment Romaine Bolanos MD [facility] Showing future appointments within next 90 days and meeting all other requirements glipiZIDE (GLUCOTROL) 5 MG Tablet [Pharmacy Med Name: GLIPIZIDE TABS 5MG] 180 Tablet 3 Sig: TAKE 1 TABLET TWICE A DAY WITH MEALS (DOSE CHANGE) Sulfonylureas Protocol Passed - 01/16/2024 1:08 AM Passed - Visit with relevant provider in past 6 months or upcoming 90 days Recent Visits Date Type Provider Dept 12/25/23 Office Visit Romaine Bolanos MD [facility] 11/25/23 Office Visit Romaine Bolanos MD [facility] 08/26/23 Office Visit Romaine Bolanos MD [facility] Showing recent visits within past 182 days and meeting all other requirements Future Appointments Date Type Provider Dept 03/16/24 Appointment Romaine Bolanos MD [facility] Showing future appointments within next 90 days and meeting all other requirements Passed - HgA1C on record in past 6 months HGB-A1C Date Value Ref Range Status 08/26/2023 6.5 (A) 4 - 6 % Final HGB-A1C Date Value Ref Range Status 11/25/2023 6.3 (H) 4.0 - 6.0 % Final Passed - GFR on record in past 6 months GFR, EST. NONAFRICAN Date Value Ref Range Status 11/25/2023 >60 >=60 Final Insulin Pen Needle (B-D ULTRAFINE III SHORT PEN) 31G X 8 MM Misc [Pharmacy Med Name: BD PEN MONTEZ UF SHORT 8MM 90'S 31G5/16] 100 Pen Needle 3 Sig: USE TWICE A DAY DIRECTED TO TAKE INSULIN Diabetic Supplies Protocol Passed - 01/16/2024 1:08 AM Passed - Visit with relevant provider in past 6 months Recent Visits Date Type Provider Dept 12/25/23 Office Visit Romaine [facility] MD [facility] 11/25/23 Office Visit Rom[facility] MD [facility] 08/26/23 Office Visit [facility] recent visits within past 182 days and meeting all other requirements Future Appointments Date Type Provider Dept 03/16/24 Appointment [facility] Show[facility] future appointments within next 90 days and meeting all other requirements documented in this encounter Plan of Treatment Upcoming Encounters Date Type Department Care Team (Late st Contact Info) Description 01/07/2025 2:30 PM CDT Physical Therapy [facility] [address] [facility], [address] [place] [address] Joan Kaufman, PAC [address] [place] [address] Zainab Butt, PT [place] Discharge Disposition: Discharged to home or Selfcare 01/10/2025 10:00 AM CDT [facility] 1 [place] [address] Katherine Mijares MD PhD [address] [place] [address] 01/10/2025 10:00 AM CDT - 01/10/2025 10:20 AM CDT [facility] 1 [place] [address] Katherine Mijares MD PhD [address] [place] [address] CATARACT EXTRACTION WITH INTRAOCULAR LENS PLACEMENT, RIGHT EYE 01/13/2025 3:30 PM CDT Office Visit [facility] Medical Group - Internal Medicine - [place] [address] [place] [address] Romaine Bolanos MD [address] [place] [address] 01/14/2025 2:30 PM CDT [facility] [address], [address] [place] [address] Joan Kaufman, PAC [address] [place] [address] Zainab Butt, PT [place] Scheduled Procedures Name Priority Associated Diagnoses Date/Ti me CATARACT EXTRACTION WITH IOL IMPLANT VISUALLY SIGNIFICANT CATARACT, RIGHT EYE 01/10/2025 10:00 AM CDT documented as of this encounter Visit Diagnoses Not on filedocumented in this encounter Additional Health Concerns Assessment Noted Time PHQ-9 Depression Total Score: 0 11/25/19 3:06 PM PARTNERSHIP DEVELOPMENT MANAGER documented as of this encounter Care Teams Fleet Service Manager Relationship Specialty Start Date End Date Romaine Bolanos MD [address] [place] [address] PCP - General Internal Medicine 12/05/15 Curry Garcia MD #2 [facility] [address] [place] [address] General Surgery 12/06/15 Robbin Shelton PAC [address] [place] [address] Physician Strategic Debriefing Specialist Physician Strategic Debriefing Specialist 02/11/24 documented as of this encounter
--- OUTSIDE RECORDS SUMMARY | 2024-12-31 16:33 | XMS_ITS | Encounter Summary ---
Author Organization [facility] Address [address] [place] [address] Phone Care Team Providers Care Fourth Grade Teacher Name Role Phone Romaine Bolanos MD Primary Care Provider [phone] Curry Garcia MD Unavailable [phone] Robbin Shelton PAC Unavailable [phone] Reason for Visit * Reason Comments Medication Refill Encounter Details Date Type Department Care Team (Late st Contact Info) Description 08/01/2023 Refill [facility] Medical Group - Internal Medicine [facility] [address] [place] [address] Romaine Bolanos MD [address] [place] [address] Medication Refill Social History Tobacco Use Types Packs/Day Years Used Date Smoking Tobacco: Every Day Cigarettes 1 30 Passive Smoke Exposure: Current Smokeless Tobacco: Never Alcohol Use Standard Drinks/Week Comments Yes 0 (1 standard drink = 0.6 oz pur e alcohol) rarely PHQ-2 Answer Date Recorded Total Score - Questions 1-9 0 08/24 Sexually Active Control Partners Comments Not Currently Comments No Sex and Gender Information Value Date Recorded Sex Assigned at Not on file Legal Sex Female 10:23 PM CDT Gender Identity Not on file Sexual Orientation Not on file COVID-19 Exposure Response Date Recorded In the last 10 days, have la farley been in contact with someone who was confirmed or suspected to have Coronavirus/COVID-19? No / Unsure 07/22/2023 2:33 PM CDT documented as of this encounter Miscellaneous Notes * Telephone Encounter - Violette Ramos RN - 08/01/2023 8:22 AM CST Medication failed the protocol, provider to review and approve the medication order if appropriate. Requested Prescriptions Pending Prescriptions Disp Refills Ozempic, 0.25 or 0.5 MG/DOSE, 2 MG/3ML Solution Pen-injector [Pharmacy Med Name: OZEMPIC PEN (0.25/0.5MG) 3ML 2MG/3ML] 3 mL 7 Sig: INJECT 0.25 MG UNDER THE SKIN WEEKLY FOUR TIMES, THEN 0.5 MG UNDER THE SKIN WEEKLY THEREAFTER GLP-1 Agonists Protocol Failed - 08/01/2023 5:26 AM Failed - GFR on record in past 6 months GFR, EST. NONAFRICAN Date Value Ref Range Status 09/20/2022 >60 >=60 Final Passed - Lipid panel result on file in past 12 months LDL Date Value Ref Range Status 09/20/2022 66 5 - 130 mg/dL Final HDL CHOLESTEROL Date Value Ref Range Status 09/20/2022 37.3 (L) >40 mg/dL Final CHOLESTEROL Date Value Ref Range Status 09/20/2022 165 <=200 mg/dL Final TRIGLYCERIDES Date Value Ref Range Status 09/20/2022 311 (H) <150 mg/dL Final VLDL Date Value Ref Range Status 09/20/2022 62 (H) 5 - 55 mg/dL Final CHOL/HDL RATIO Date Value Ref Range Status 09/20/2022 4.4 0.0 - 4.4 Final NON-HDL CHOLESTEROL Date Value Ref Range Status 09/20/2022 127.7 <130 mg/dL Final Passed - Visit with relevant provider in past 6 months or upcoming 90 days Recent Visits Date Type Provider Dept 07/14/23 Appointment Romaine Bolanos MD [facility] 05/20/23 Office Visit Romaine [facility] MD [facility] Showing recent visits within past 182 days and meeting all other requirements Future Appointments Date Type Provider Dept 08/26/23 Appointment Romaine Bolanos MD [facility] [place] Showing future appointments within next 90 days and meeting all other requirements Passed - HgA1C result on record in past 6 months HGB-A1C Date Value Ref Range Status 05/20/2023 8.2 (A) 4 - 6 % Final CRIB SUPERVISOR documented in this encounter Plan of Treatment Upcoming Encounters Date Type Department Care Team (Late st Contact Info) Description 01/07/2025 2:30 PM CDT [facility] [address] [facility], [address] [place] [address] Joan Kaufman, PAC [address] [place] [address] Zainab Butt, PT [place] Discharge Disposition: Discharged to home or Selfcare 01/10/2025 10:00 AM CDT [facility] 1 [place] [address] Katherine Mijares MD PhD [address]1 [place] [address] 01/10/2025 10:00 AM CDT - 01/10/2025 10:20 AM CDT [facility] 1 [place] [address] Katherine Mijares MD PhD [address] [place] [address] CATARACT EXTRACTION WITH INTRAOCULAR LENS PLACEMENT, RIGHT EYE 01/13/2025 3:30 PM CDT [facility] - [place] [address] [place] [address] Romaine Bolanos MD [address] [place] [address] 01/14/2025 2:30 PM CDT [facility] [address], [address] [place] [address] Joan Kaufman, PAC [address] [place] [address] Zainab Butt, PT [place] Scheduled Procedures Name Priority Associated Diagnoses Date/Ti me CATARACT EXTRACTION WITH IOL IMPLANT VISUALLY SIGNIFICANT CATARACT, RIGHT EYE 01/10/2025 10:00 AM CDT documented as of this encounter Visit Diagnoses Not on filedocumented in this encounter Additional Health Concerns Assessment Noted Time PHQ-9 Depression Total Score: 0 09/20/20 8:00 AM TOOL CRIB SUPERVISOR documented as of this encounter Care Teams Fourth Grade Teacher Relationship Specialty Start Date End Date Romaine Bolanos MD [address] [place] [address] PCP - General Internal Medicine 12/05/15 Curry Garcia MD [address] [address] [address] General Surgery 12/06/15 Robbin Shelton PAC [address] [place] [address] Physician Electrical Assistant Physician Electrical Assistant 02/11/24 documented as of this encounter
--- OUTSIDE RECORDS SUMMARY | 2024-12-31 16:33 | XMS_ITS | Encounter Summary ---
Author Organization [facility] Address [address] [place] [address] Phone Care Team Providers Care Hydrology Professor Name Role Phone Romaine Bolanos MD Primary Care Provider [phone]- [phone] Curry Garcia MD Unavailable [phone] Robbin Shelton PAC Unavailable [phone] Reason for Visit * Reason Comments Medication Refill Encounter Details Date Type Department Care Team (Late st Contact Info) Description 09/11/[address] [facility] Medical Group - Internal Medicine [facility] [address] [place] [address] Romaine Bolanos MD [address] [place] [address] Medication Refill Social History Tobacco [...] Telephone Encounter - Violette Ramos RN - 09/12/2023 10:02 AM CST Medication failed the protocol, provider to review and approve the medication order if appropriate. Requested Prescriptions Pending Prescriptions Disp Refills HumaLOG Mix 75/25 KwikPen (75-25) 100 UNIT/ML Suspension Pen-injector [Pharmacy Med Name: HUMALOG MIX 75/25 KWKPN 3ML 5 75/25] 30 mL 7 Sig: INJECT 36 UNITS UNDER THE SKIN TWICE A DAY BEFORE MEALS Not Delegated - Insulin Protocol Failed - 09/11/2023 7:30 PM Failed - This refill cannot be delegated Passed - Visit with relevant provider in past 12 months or upcoming 90 days Recent Visits Date Type Provider Dept 08/26/23 Office Visit Romaine Bolanos MD [facility] 07/14/23 Appointment Romaine Bolanos MD [facility] 05/20/23 Office Visit Romaine Bolanos MD [facility] 12/19/22 Office Visit Romaine Bolanos MD [facility] 12/05/22 Telemedicine Romaine Bolanos MD [facility] 11/28/22 Telemedicine Romaine Bolanos MD [facility] 09/20/22 Office Visit Romaine Bolanos MD [facility] Showing recent visits within past 365 days and meeting all other requirements Future Appointments Date Type Provider Dept 11/19/23 Appointment [facility] 11/25/23 Appointment Romaine Bolanos MD [facility] Showing future appointments within next 90 days and meeting all other requirements CHING MACHINE OPERATOR documented in this encounter Plan of Treatment Upcoming Encounters Date Type Department Care Team (Late st Contact Info) Description 01/07/2025 2:30 PM CDT Physical Therapy [facility] at [facility] [address], [address] [address] Joan Kaufman, PAC [address] [place] [address] Zainab Butt, [place] Discharge Disposition: Discharged to home or Selfcare 01/10/2025 10:00 AM CDT [facility] 1 [place] [address] Katherine Mijares MD PhD #1 [place] [address] 01/10/2025 10:00 AM CDT - 01/10/2025 10:20 AM CDT [facility] 1 [place] [address] Katherine Mijares MD PhD [address] [place] [address] CATARACT EXTRACTION WITH INTRAOCULAR LENS PLACEMENT, RIGHT EYE 01/13/2025 3:30 PM CDT Office [facility] - [place] [address] [place] [address] Romaine Bolanos MD [address] [facility] [address] 01/14/2025 2:30 PM CDT [facility] [address], [address] [address] Joan Kaufman, PAC [address] [place] [address] Zainab Butt, [place] Scheduled Procedures Name Priority Associated Diagnoses Date/Ti me CATARACT EXTRACTION WITH IOL IMPLANT VISUALLY SIGNIFICANT CATARACT, RIGHT EYE 01/10/2025 10:00 AM CDT documented as of this encounter Visit Diagnoses Diagnosis Type 2 diabetes mellitus without complication, with long-term current use of insulin documented in this encounter Additional Health Concerns Assessment Noted Time PHQ-9 Depression Total Score: 0 12/05/20 23 3:03 PM BROACHING MACHINE OPERATOR documented as of this encounter Care Teams Hydrology Professor Relationship Specialty Start Date End Date Romaine Bolanos MD [address] [place] [address] PCP - General Internal Medicine 12/05/15 Curry Garcia MD #[address] [address] General Surgery 12/06/15 Robbin Shelton, PAC [address] [place] [address] Physician Retail Analyst Physician Retail Analyst 02/11/24 documented as of this encounter
--- OUTSIDE RECORDS SUMMARY | 2024-12-31 16:33 | XMS_ITS | Encounter Summary ---
Author Organization [facility] Address [address] [place] [address] Phone Care Team Providers Care Supervisor Picking Crew Name Role Phone Romaine Bolanos MD Primary Care Provider [phone]- [phone] Curry Garcia MD Unavailable [phone] Robbin Shelton PAC Unavailable [phone] Reason for Visit * Reason Comments Medication Refill Encounter Details Date Type Department Care Team (Late st Contact Info) Description 07/03/[address] [facility] - Internal Medicine [facility] [address] [place] [address] Romaine Bolanos MD [address] [place] [address] Medication Refill Social History Tobacco Use Types Packs/Day Years Used Date Smoking Tobacco: Every Day Cigarettes 1 30 Smokeless Tobacco: Never Alcohol Use Standard Drinks/Week Comments Yes 0 (1 standard drink = 0.6 oz pur e alcohol) rarely Comments No Sex and Gender Information Value Date Recorded Sex Assigned at Not on file Legal Sex Female 10:23 PM CDT Gender Identity Not on file Sexual Orientation Not on file documented as of this encounter Miscellaneous Notes * Telephone Encounter - Dyana Shin RN - 07/04/2020 7:44 AM CDT Please review and sign. documented in this encounter Plan of Treatment Upcoming Encounters Date Type Department Care Team (Late st Contact Info) Description 01/07/2025 2:30 PM CDT [facility] [address], [address] [place] [address] Joan Kaufman, PAC [address] [place] [address] Zainab Butt, PT [place] Discharge Disposition: Discharged to home or Selfcare 01/10/2025 10:00 AM CDT Hospital [facility] 1 [place] [address] Katherine Mijares MD PhD #1 [place] [address] 01/10/2025 10:00 AM CDT - 01/10/2025 10:20 AM CDT Surgery [facility] 1 [place] [address] Katherine Mijares MD PhD [address]1 [place] [address] CATARACT EXTRACTION WITH INTRAOCULAR LENS PLACEMENT, RIGHT EYE 01/13/2025 3:30 PM CDT [facility] - [place] [address] [place] [address] Romaine Bolanos MD [address] [place] [address] 01/14/2025 2:30 PM CDT Physical Therapy [facility] [address], [address] [place] [address] Joan Kaufman, PAC [address] [place] [address] Zainab Butt, PT [place] Scheduled Procedures Name Priority Associated Diagnoses Date/Ti me CATARACT EXTRACTION WITH IOL IMPLANT VISUALLY SIGNIFICANT CATARACT, RIGHT EYE 01/10/2025 10:00 AM CDT documented as of this encounter Visit Diagnoses Not on filedocumented in this encounter Additional Health Concerns Infection Onset Date Last Indicated Resolved Time Respiratory Rule Out - RPA 11/13/2022 11/13/2022 0 11/13/2022 10:28 AM LIFE SCIENTISTS Respiratory Rule Out - RPA 11/28/2022 11/28/2022 0 11/28/2022 1:36 PM LIFE SCIENTISTS documented as of this encounter Care Teams Supervisor Picking Crew Relationship Specialty Start Date End Date Romaine Bolanos MD [address] [place] [address] PCP - General Internal Medicine 12/05/15 Curry Garcia MD #[address] [address] General Surgery 12/06/15 Robbin Shelton PAC #1 [place] [address] Physician Hotel Night Auditor Physician Hotel Night Auditor 02/11/24 documented as of this encounter
--- OUTSIDE RECORDS SUMMARY | 2024-12-31 16:33 | XMS_ITS | Encounter Summary ---
Author Organization [facility] Address [address] [place] [address] Phone Care Team Providers Care Benefits Coordinator Name Role Phone Romaine Bolanos MD Primary Care Provider [phone] Curry Garcia MD Unavailable [phone] Robbin Shelton PAC Unavailable [phone] Reason for Visit * Reason Comments Medication Refill Encounter Details Date Type Department Care Team (Late st Contact Info) Description 06/19/2020 Refill [facility] - Internal Medicine [facility] [address] [place] [address] Romaine Bolanos MD [address] [place] [address] Medication Refill Social History Tobacco [...] Telephone Encounter - Dyana Shin RN - 06/20/2020 7:44 AM CDT Please review and sign. documented in this encounter Plan of Treatment Upcoming Encounters Date Type Department Care Team (Late st Contact Info) Description 01/07/2025 2:30 PM CDT [facility] [address], [address] [place] [address] Joan Kaufman, PAC [address] [place] [address] Zainab Butt, PT [place] Discharge Disposition: Discharged to home or Selfcare 01/10/2025 10:00 AM CDT [facility] [place] [address] Katherine Mijares MD PhD [address] [place] [address] 01/10/2025 10:00 AM CDT - 01/10/2025 10:20 AM CDT [facility] [place] [address] Katherine Mijares MD PhD [address] [place] [address] CATARACT EXTRACTION WITH INTRAOCULAR LENS PLACEMENT, RIGHT EYE 01/13/2025 3:30 PM CDT [facility] - [place] [address] [place] [phone] Romaine Bolanos MD [address] [place] [address] 01/14/2025 2:30 PM CDT [facility] [address], [address] [place] [address] Joan Kaufman, PAC [address] [place] [address] Zainab Butt, PT [place] Scheduled Procedures Name Priority Associated Diagnoses Date/Ti me CATARACT EXTRACTION WITH IOL IMPLANT VISUALLY SIGNIFICANT CATARACT, RIGHT EYE 01/10/2025 10:00 AM CDT documented as of this encounter Visit Diagnoses Not on filedocumented in this encounter Additional Health Concerns Infection Onset Date Last Indicated Resolved Time Respiratory Rule Out - RPA 11/13/2022 11/13/2022 0 11/13/2022 10:28 AM MARKETING MGR Respiratory Rule Out - RPA 11/28/2022 11/28/2022 0 11/28/2022 1:36 PM MARKETING MGR documented as of this encounter Care Teams Benefits Coordinator Relationship Specialty Start Date End Date Romaine Bolanos MD [address] [place] [address] PCP - General Internal Medicine 12/05/15 Curry Garcia MD [address] [address] General Surgery 12/06/15 Robbin Shelton PAC [address] [place] [address] Physician Assistant Professor Of German Physician Assistant Professor Of German 02/11/24 documented as of this encounter
--- OUTSIDE RECORDS SUMMARY | 2024-12-31 16:33 | XMS_ITS | Encounter Summary ---
Author Organization [facility] Address [address] [place] [address] Phone Care Team Providers Care Ranch Hand Livestock Name Role Phone Romaine Bolanos MD Primary Care Provider [phone] Curry Garcia MD Unavailable [phone] Robbin Shelton PAC Unavailable [phone] Reason for Visit * Reason Comments Medication Refill Encounter Details Date Type Department Care Team (Late st Contact Info) Description 08/25/2022 Refill [facility] - Internal Medicine [facility] [address] [place] [address] Romaine Bolanos MD [address] [place] [address] Medication Refill Social History Tobacco [...] Telephone Encounter - Dyana Shin RN - 08/26/2022 6:59 AM CST Medication failed the protocol, provider to review and approve the medication order if appropriate. Requested Prescriptions Pending Prescriptions Disp Refills ezetimibe (ZETIA) 10 MG Tablet [Pharmacy Med Name: EZETIMIBE TABS 10MG] 90 Tablet 3 Sig: TAKE 1 TABLET DAILY Intestinal Cholesterol Absorption Inhibitors Protocol Failed - 08/25/2022 7:00 PM Failed - Lipid panel in past year LDL Date Value Ref Range Status 01/16/2021 74 0 - 130 mg/dL Final Passed - Visit with relevant provider in past year or upcoming 90 days Recent Visits Date Type Provider Dept 05/28/22 Office Visit Romaine Bolanos MD [facility] 02/06/22 Office Visit Rmoaine Bolanos MD [facility] 11/06/21 Office Visit Romaine Bolanos MD [facility] Showing recent visits within past 365 days and meeting all other requirements Future Appointments Date Type Provider Dept 09/12/22 Appointment Lab, [facility] 09/17/22 Appointment Romaine Bolanos MD [facility] Showing future appointments within next 90 days and meeting all other requirements OneTouch Verio Strip [Pharmacy Med Name: ONE TOUCH VERIO STRIPS 100'S] 200 Strip 3 Sig: USE TO CHECK BLOOD SUGAR TWICE A DAY DIRECTED FOR TYPE 2 DIABETES MELLITUS INSULIN DEPENDENT Diabetic Supplies Protocol Passed - 08/25/2022 7:00 PM Passed - Visit with relevant provider in past 6 months Recent Visits Date Type Provider Dept 05/28/22 Office Visit Romaine Bolanos MD [facility] Showing recent visits within past 182 days and meeting all other requirements Future Appointments Date Type Provider Dept 09/12/22 Appointment Lab, [facility] 09/17/22 Appointment Romaine Bolanos MD [facility] Showing future appointments within next 90 days and meeting all other requirements LDER JOINER documented in this encounter Plan of Treatment Upcoming Encounters Date Type Department Care Team (Late st Contact Info) Description 01/07/2025 2:30 PM CDT Physical Therapy [facility] [address], [address] [place] [address] Joan Kaufman, PAC [address] [place] [address] Zainab Butt, PT [place] Discharge Disposition: Discharged to home or Selfcare 01/10/2025 10:00 AM CDT Hospital Encounter [facility] [address] [place] [address] Katherine Mijares MD PhD [address] [place] [address] 01/10/2025 10:00 AM CDT - 01/10/2025 10:20 AM CDT Surgery [facility] [address] [place] [address] Katherine Mijares MD PhD [address] [place] [address] CATARACT EXTRACTION WITH INTRAOCULAR LENS PLACEMENT, RIGHT EYE 01/13/2025 3:30 PM CDT Office Visit [facility] - Internal Medicine - [place] [address] [place] [address] Romaine Bolanos MD [address] [place] [address] 01/14/2025 2:30 PM CDT Physical Therapy [facility] at [address], [address] [place] [address] Joan Kaufman, PAC [address] [place] [address] Zainab Butt PT [place] Scheduled Procedures Name Priority Associated Diagnoses Date/Ti me CATARACT EXTRACTION WITH IOL IMPLANT VISUALLY SIGNIFICANT CATARACT, RIGHT EYE 01/10/2025 10:00 AM CDT documented as of this encounter Visit Diagnoses Not on filedocumented in this encounter Additional Health Concerns Infection Onset Date Last Indicated Resolved Time Respiratory Rule Out - RPA 11/13/2022 11/13/2022 0 11/13/2022 10:28 AM SHOULDER JOINER Respiratory Rule Out - RPA 11/28/2022 11/28/2022 0 11/28/2022 1:36 PM SHOULDER JOINER Assessment Noted Time PHQ-9 Depression Total Score: 0 07/25/20 12:00 PM CDT documented as of this encounter Care Teams [employer]estock Relationship Specialty Start Date End Date Romaine Bolanos MD [address] [place] [address] PCP - General Internal Medicine 12/05/15 Curry Garcia MD #[address] [address] General Surgery 12/06/15 Robbin Shelton PAC [address] [place] [address] Physician Plumbing Assembler Installer Physician Plumbing Assembler Installer 02/11/24 documented as of this encounter
--- OUTSIDE RECORDS SUMMARY | 2024-12-31 16:33 | XMS_ITS | Encounter Summary ---
Author Organization [facility] Address [address] [place] [address] Phone Care Team Providers Care Front Attendant Name Role Phone Romaine Bolanos MD Primary Care Provider [phone] Curry Garcia MD Unavailable [phone] Robbin Shelton PAC Unavailable [phone] Reason for Visit * Reason Comments Medication Refill Encounter Details Date Type Department Care Team (Late st Contact Info) Description 09/01/2022 Refill [facility] - Internal Medicine [facility] [address] [place] [address] Romaine Bolanos MD [address] [place] [address] Medication Refill Social History Tobacco [...] Telephone Encounter - Dyana Shin RN - 09/02/2022 9:22 AM CST Medication failed the protocol, provider to review and approve the medication order if appropriate. Requested Prescriptions Pending Prescriptions Disp Refills escitalopram (LEXAPRO) 10 MG Tablet [Pharmacy Med Name: ESCITALOPRAM TABS 10MG] 90 Tablet 3 Sig: TAKE 1 TABLET DAILY (DOSE INCREASED) SSRI (6 Month Refill Only) Protocol Failed - 09/01/2022 10:18 AM Failed - Has an encounter in the past 6 months with a depression, anxiety, adjustment disorder, OCD, or PTSD visit diagnosis Passed - No test in the past 12 months or most recent test was negative Passed - No active on record Passed - Visit with relevant provider in past 6 months or upcoming 90 days Recent Visits Date Type Provider Dept 05/28/22 Office Visit [facility] [place] Show[facility] recent visits within past 182 days and meeting all other requirements Future Appointments Date Type Provider Dept 09/12/22 Appointment [facility] [place] 09/17/22 Appointment Romaine Bolanos MD [facility] [place] Showing future appointments within next 90 days and meeting all other requirements Passed - Patient has established therapy with [facility] for at least 6 months D WORKER documented in this encounter Plan of Treatment Upcoming Encounters Date Type Department Care Team (Late st Contact Info) Description 01/07/2025 2:30 PM CDT [facility] [address], [address] [place] [address] Joan Kaufman, PAC [address] [place] [address] Zainab Butt, PT [place] Discharge Disposition: Discharged to home or Selfcare 01/10/2025 10:00 AM CDT Hospital Encounter [facility] Periop 1 [place] [address] Katherine Mijares MD PhD [address] [place] [address] 01/10/2025 10:00 AM CDT - 01/10/2025 10:20 AM CDT [facility] [address] [place] [address] Katherine Mijares MD PhD [address] [place] [address] CATARACT EXTRACTION WITH INTRAOCULAR LENS PLACEMENT, RIGHT EYE 01/13/2025 3:30 PM CDT Office Visit [facility] - Internal Medicine - [place] [address] [place] [phone] Romaine Bolanos MD [address] [place] [address] 01/14/2025 2:30 PM CDT Physical [facility] [address], [address] [place] [address] Joan Kaufman, PAC [address] [place] [address] Zainab Butt, PT [place] Scheduled Procedures Name Priority Associated Diagnoses Date/Ti me CATARACT EXTRACTION WITH IOL IMPLANT VISUALLY SIGNIFICANT CATARACT, RIGHT EYE 01/10/2025 10:00 AM CDT documented as of this encounter Visit Diagnoses Not on filedocumented in this encounter Additional Health Concerns Infection Onset Date Last Indicated Resolved Time Respiratory Rule Out - RPA 11/13/2022 11/13/2022 0 11/13/2022 10:28 AM BOARD WORKER Respiratory Rule Out - RPA 11/28/2022 11/28/2022 0 11/28/2022 1:36 PM BOARD WORKER Assessment Noted Time PHQ-9 Depression Total Score: 0 07/25/20 21 12:00 PM CDT documented as of this encounter Care Teams Front Attendant Relationship Specialty Start Date End Date Romaine Bolanos MD [address] [place] [address] PCP - General Internal Medicine 12/05/15 Curry Garcia MD #[address] [address] General Surgery 12/06/15 Robbin Shelton PAC [address] [place] [address] Physician Ward Assistant Physician Ward Assistant 02/11/24 documented as of this encounter
--- OUTSIDE RECORDS SUMMARY | 2024-12-31 16:33 | XMS_ITS | Encounter Summary ---
Author Organization [facility] Address [address] [place] [address] Phone Care Team Providers Care Hand Fretted Instrument Maker Name Role Phone Romaine Bolanos MD Primary Care Provider [phone] Curry Garcia MD Unavailable [phone] Robbin Shelton PAC Unavailable [phone] Reason for Visit * Reason Comments Medication Refill Encounter Details Date Type Department Care Team (Late st Contact Info) Description 09/06/2020 Refill [facility] - Internal Medicine [facility] [address] [place] [address] Romaine Bolanos MD [address] [place] [address] Medication Refill Social History Tobacco [...] Telephone Encounter - Dyana Shin RN - 09/07/2020 8:19 AM CST Please review and sign. NAILER documented in this encounter Plan of Treatment Upcoming Encounters Date Type Department Care Team (Late st Contact Info) Description 01/07/2025 2:30 PM CDT [facility] [address], [address] [place] [address] Joan Kaufman, PAC [address] [place] [address] Zainab Butt, PT [place] Discharge Disposition: Discharged to home or Selfcare 01/10/2025 10:00 AM CDT [facility] [place] [address] Katherine Mijares MD PhD [address] [place] [address] 01/10/2025 10:00 AM CDT - 01/10/2025 10:20 AM CDT [facility] [place] [address] Katherine Mijares MD PhD [address] [place] [address] CATARACT EXTRACTION WITH INTRAOCULAR LENS PLACEMENT, RIGHT EYE 01/13/2025 3:30 PM CDT Office Visit [facility] - Internal Medicine - [place] [address] [place] [address] Romaine Bolanos MD [address] [place] [address] 01/14/2025 2:30 PM CDT Physical [facility] [address], [address] [place] [address] Joan Kaufman, PAC [address] [place] [address] Zainab Butt, PT [place] Scheduled Procedures Name Priority Associated Diagnoses Date/Ti me CATARACT EXTRACTION WITH IOL IMPLANT VISUALLY SIGNIFICANT CATARACT, RIGHT EYE 01/10/2025 10:00 AM CDT documented as of this encounter Visit Diagnoses Not on filedocumented in this encounter Additional Health Concerns Infection Onset Date Last Indicated Resolved Time Respiratory Rule Out - RPA 11/13/2022 11/13/2022 0 11/13/2022 10:28 AM HAND NAILER Respiratory Rule Out - RPA 11/28/2022 11/28/2022 0 11/28/2022 1:36 PM HAND NAILER Assessment Noted Time PHQ-9 Depression Total Score: 0 07/20/20 10:00 AM CDT documented as of this encounter Care Teams Hand Fretted Instrument Maker Relationship Specialty Start Date End Date Romaine Bolanos MD [address] [place] [address] PCP - General Internal Medicine 12/05/15 Curry Garcia MD #[address] [address] General Surgery 12/06/15 Robbin Shelton PAC [address] [place] [address] Physician Structural Shop Helper Physician Structural Shop Helper 02/11/24 documented as of this encounter
--- OUTSIDE RECORDS SUMMARY | 2024-12-31 16:33 | XMS_ITS | Clinical Summary ---
Author Organization [facility] Address [address] [place] [address] Phone Care Team Providers Care Supervisory Investigative Specialist Name Role Phone Romaine Bolanos MD Primary Care Provider [phone] Curry Garcia MD Unavailable [phone] Robbin Shelton PAC Unavailable [phone] Allergies Active Allergy Reactions Criticality Noted Date Comments Codeine Nausea,Vomiting Low 02/13/2021 Morphine Nausea,Vomiting Low 02/13/2021 Hydrocodone-Acetaminophen Nausea,Vomiting Low 02/13 Medications Aspirin 81 MG Tablet Take 81 mg by mouth daily. Active Blood Glucose Monitoring Suppl (OneMeriTaleemuch Verio Flex System) w/Device KitIndications: Type 2 diabetes mellitus without complication, with long-term current use of insulin 1 Units by Does not apply route 2 times daily. Use to check bl sugar twice a day DX TYPE 2 DM INSULIN DEP 1 Kit 3 Active carvedilol (COREG) 12.5 MG Tablet TAKE 1 TABLET TWICE A DAY 180 Tablet 3 4 Active Additional Information Patient taking differently: 12.5 mg Oral 2 TIMES DAILY, Reported on 12/29/2024 lisinopril (PRINIVIL, ZESTRIL) 20 MG Tablet TAKE 1 TABLET DAILY 90 Tablet 3 4 Active Additional Information Patient taking differently: EVERY MORNING, Reported on 12/29/2024 Glucose Blood (OneTouch Verio) Strip USE TO CHECK BLOOD SUGAR TWICE A DAY DIRECTED 200 Strip 3 4 Active Lancets (OneTouch Delica Plus [id number]) Misc USE TO CHECK BLOOD SUGAR TWICE A DAY DIRECTED 200 Each 3 4 Active insulin lispro prot & lispro (HumaLOG Mix 75/25 KwikPen) (75-25) 100 UNIT/ML Suspension Pen-injectorInd ications:Type 2 diabetes mellitus without complication, with long-term current use of insulin INJECT 36 UNITS UNDER THE SKIN TWICE A DAY BEFORE MEALS 30 mL 7 4 Active Additional Information Patient taking differently: 38 Units 2 TIMES DAILY BEFORE MEALS, INJECT 38 UNITS UNDER THE SKIN TWICE A DAY BEFORE MEALS, Reported on 12/29/2024 atorvastatin (LIPITOR) 80 MG Tablet Take 1 Tablet by mouth nightly. 90 Tablet 3 4 Active ezetimibe (ZETIA) 10 MG Tablet Take 1 Tablet by mouth daily. 90 Tablet 3 4 Active escitalopram (LEXAPRO) 10 MG Tablet Take 1 Tablet by mouth daily. 90 Tablet 1 4 Active omeprazole (PriLOSEC) 20 MG CAPSULE DELAYED RELEASE Take 1 Capsule by mouth daily. 90 Capsule 1 4 Active potassium chloride CR (KLORCON) 10 MEQ Tablet Controlled Release Take 1 Tablet by mouth daily. 90 Tablet 1 4 Active Insulin Pen Needle (B-D ULTRAFINE III SHORT PEN) 31G X 8 MM Misc USE TWICE A DAY DIRECTED TO TAKE INSULIN 100 Pen Needle 3 4 Active semaglutide, 1 MG/DOSE, (Ozempic, 1 MG/DOSE,) 4 MG/3ML Solution Pen-injectorInd ications:Type 2 diabetes mellitus without complication, with long-term current use of insulin 1 mg by Subcutaneous route once a week. 9 mL 3 4 Active Additional Information Patient taking differently:1 mg Subcutaneous WEEKLY,Friday's, Reported on 12/29/2024 hydrOXYzine (ATARAX) 25 MG Tablet TAKE 1 TABLET EVERY 8 HOURS NEEDED FOR ANXIETY 45 Tablet 23 4 Active Additional Information Patient taking differently: PRN, Reported on 12/29/2024 Active Problems Problem Noted Date Diagnosed Date BRAD (obstructive sleep apnea) 03/12/2021 Generalized anxiety disorder 10/20/2020 Type 2 diabetes mellitus wit hout complication, with long-term current use of insulin 07/20/2020 Mixed hyperlipidemia 07/20/2020 Essential hypertension, benign 07/20/2020 GERD without esophagitis 07/20/2020 Tobacco use 07/20/2020 Coronary artery disease invo lving [place] coronary artery of [place] heart without angina pectoris 07/20/2020 Delayed gastric emptying 12/20/2015 Calculus of gallbladder with out cholecystitis without obstruction 12/20/2015 Encounters Date Type Department Care Team Description 12/29/2024 Travel 12/24/2024 3:15 PM CDT Physical Therapy [facility] [address] [place] [address] Joan Kaufman, Zainab Wallace, PT Acute pain of right knee (Primary Dx) Discharge Disposition: Discharged to home or Selfcare 12/23/2024 Travel 12/03/2024 3:30 PM CDT Physical Therapy [facility] [address] [place] [address] Joan Kaufman, Jorge L Guzman, PRICING COORDINATOR Acute pain of right knee (Primary Dx) Discharge Disposition: Discharged to home or Selfcare 12/03/2024 2:30 PM CDT Occupational Therapy [facility] [address] [place] [address] Romaine Bolanos MD Embick, Alyssa, OT Right wrist pain (Primary Dx) Discharge Disposition: Discharged to home or Selfcare 12/02/2024 Travel 11/26/2024 2:30 PM GAMEMASTER Occupational Therapy [facility] [address] [place] [address] Romaine Bolanos MD Embick, Alyssa, OT Right wrist pain (Primary Dx) Discharge Disposition: Discharged to home or Selfcare 11/26/2024 1:15 PM GAMEMASTER Physical Therapy [facility] [address] [place] [address] Joan Kaufman, Jorge L Guzman R, PRICING COORDINATOR Acute pain of right knee (Primary Dx) Discharge Disposition: Discharged to home or Selfcare 11/25/2024 Travel 11/19/2024 Telephone [facility] Occupational Therapy Virtual IP [address] [facility] [place] [address] Cheryle Thao, JOY 11/15/2024 Telephone [facility] [address] [facility] [place] [place] [address] Robbin Shelton, PAC 11/12/2024 3:15 PM GAMEMASTER Physical Therapy [facility] [address] [place] [address] Joan Kaufman, Zainab Wallace, PT Acute pain of right knee (Primary Dx) Discharge Disposition: Discharged to home or Selfcare 11/12/2024 2:30 PM GAMEMASTER Occupational Therapy [facility] [address] [place] [address] Romaine Bolanos MD Embick, Alyssa, OT Right wrist pain (Primary Dx) Discharge Disposition: Discharged to home or Selfcare 11/11/2024 Travel 11/05/2024 Telephone [facility] [address] [place] [address] Zainab Butt, PT Appointment 11/05/2024 Telephone [facility] [address] [place] [address] Cheryle Thao, OT cancel 11/05/2024 Travel 11/03/2024 Telephone [facility] - Orthopedic Surgery - [address] [place] [address] Robbin Shelton PAC 10/29/2024 2:30 PM GAMEMASTER Occupational Therapy [facility] [address], [address] [place] [address] Romaine Bolanos MD Embick, Alyssa, OT Right wrist pain (Primary Dx) Discharge Disposition: Discharged to home or Selfcare 10/27/2024 3:15 PM GAMEMASTER Physical Therapy [facility] [address], [address] [place] [address] Joan Kaufman, Jorge L Guzman, PRICING COORDINATOR Acute pain of right knee (Primary Dx) Discharge Disposition: Discharged to home or Selfcare 10/27/2024 Travel 10/25/2024 Travel 10/22/2024 2:30 PM GAMEMASTER Occupational Therapy [facility] at [address] [place] [address] Romaine Bolanos MD Embick, Alyssa, OT Right wrist pain (Primary Dx) Discharge Disposition: Discharged to home or Selfcare 10/22/2024 Plan of Care Documentation [facility] [address], [address] [place] [address] 10/21/2024 12:15 PM GAMEMASTER Physical Therapy [facility] [address], [address] [place] [address] Romaine Bolanos MD McFarlin, Courtney Michelle, Zainab Wallace, PT Acute pain of right knee (Primary Dx) Discharge Disposition: Discharged to home or Selfcare 10/20/2024 Travel 10/15/2024 2:30 PM GAMEMASTER Occupational Therapy [facility] [address], [address] [place] [address] Romaine Bolanos MD Embick, Alyssa, OT Discharge Disposition: Discharged to home or Selfcare 10/14/2024 Travel 10/11/2024 10:00 AM GAMEMASTER Office Visit [facility] - Internal Medicine - [place] [address] [place] [address] Romaine Bolanos MD Type 2 diabetes mellitus without complication, with long-term current use of insulin (HCC) (Primary Dx); Mixed hyperlipidemia; Essential hypertension, benign; Coronary artery disease involving [place] coronary artery of [place] heart without angina pectoris Discharge Disposition: Discharged to home or Selfcare 10/11/2024 Travel 10/06/2024 3:15 PM GAMEMASTER Occupational Therapy [facility] [address] [place] [address] Romaine Bolanos MD Embick, Alyssa, OT Right wrist pain Discharge Disposition: Discharged to home or Selfcare 10/06/2024 Plan of Care Documentation [facility] [address] [place] [address] 10/06/2024 Travel from Last 3 Months Immunizations Immunization Administration Dates Next Due Influenza Vaccine 06/15/2019 Influenza Vaccine greater than 3 yrs 07/31/2015 Influenza Vaccine, Quadrivalent, PF 09/20/2022 Influenza, Seasonal, Injectable, Undefined 07/31 Influenza,Split Virus,Trivalent,Injectable,PF Pneumococcal conjugate PCV20 , polysaccharide [id number] conjugate, adjuvant, PF 11/25/2023 TDAP Vaccine 03/14/2021 Zoster Vaccine Recombinant 08/10/2024 Zoster Vaccine, live 06/18/2024 Family History Medical History Relation Name Comments Abdominal Aortic Aneurysm Father Diabetes Father Heart Attack Father Cancer Maternal Grandmother Lung Heart Attack Maternal Grandmother Hypertension Maternal Grandmother Diabetes Mother Hypertension Mother Heart Attack Paternal Grandfather Relation Name Status Comments Father Maternal Grandmother Mother Alive Paternal Grandfather Social History Tobacco Use Types Packs/Day Years Used Date Smoking Tobacco: Every Day Cigarettes 1 30 Passive Smoke Exposure: Current Smokeless Tobacco: Never Tobacco Cessation:Ready to Q uit: No; Counseling Given: No Alcohol Use Standard Drinks/Week Comments Yes 0 (1 standard drink = 0.6 oz pur e alcohol) rarely [facility] Utilities Answer Date Recorded In the past 12 months has e [employer], gas, oil, or water [employer] threatened to shut off services in your home? No 09/24/2024 Social Connection and Isolat ion Panel [NHANES] Answer Date Recorded In a typical week, how many times do you talk on the phone with family, friends, or neighbors? More than three times a week 09/24/2024 How often do you get togethe r with friends or relatives? More than three times a week 09/24/2024 How often do you attend [facility] or bahai services? More than 4 times per year 09/24/2024 Do you belong to any clubs o r organizations such as scientology groups, unions, fraternal or athletic groups, or school groups? Yes 09/24/2024 How often do you attend meet ings of the clubs or organizations you belong to? 1 to 4 times per year 09/24/2024 Are you , , di vorced, , never , or living with a partner? 09/24/2024 AUDIT-C Answer Date Recorded Q1: How often do you have a drink containing alc ohol? Monthly or less 09/24/2024 Q2: How many drinks containi ng alcohol do you have on a typical day when you are drinking? 1 or 2 09/24/2024 Q3: How often do you have si x or more drinks on one occasion? Never 09/24/2024 Overall Financial Resource Strain (CARDIA) Answe r Date Recorded How hard is it for you to pa y for the very basics like food, housing, medical care, and heating? Not very hard 09/24/2024 PHQ-2 Answer Date Recorded Total Score - Questions 1-9 0 09/23 [facility] Occup[facility] ional [facility] - Occupational Stress Questionnaire Answer Date Recorded Do you feel stress - tense, restless, nervous, or anxious, or unable to sleep at night because your mind is troubled all the time - these days? Very much 09/24/2024 Exercise Vital Sign Answer Date Recorde d On average, how many days pe r week do you engage in moderate to strenuous exercise (like a brisk walk)? 3 days 09/24/2024 On average, how many minutes do you engage in exercise at this level? 20 min 09/24/2024 Hunger Vital Sign Answer Date Recorded Within the past 12 months, y ou worried that your food would run out before you got the money to buy more. Never true 09/24/19 25 Within the past 12 months, t he food you bought just didn't last and you didn't have money to get more. Never true 09/24/2024 PRAPARE - Transportation Answer Date Re corded In the past 12 months, has l ack of transportation kept you from medical appointments or from getting medications? No 11/2024 In the past 12 months, has l ack of transportation kept you from meetings, work, or from getting things needed for daily living? No 09/24/2024 Housing Stability Vital Sign Answer Wesley e [...] place to sleep or slept in a snf (including now)? No 11/25/2023 Housing Stability Vital Sign Answer Wesley e Recorded In the last 12 months, was t here a time when you were not able to pay the mortgage or rent on time? No 09/24/2024 In the past 12 months, how m any times have you moved where you were living? 0 09/24/2024 At any time in the past 12 m [facility], were you homeless or living in a snf (including now)? No 09/24/2024 Sexually Active Control Partners Comments Not Currently Comments No Sex and Gender Information Value Date Recorded Sex Assigned at Not on file Legal Sex Female 10:23 PM CDT Gender Identity Not on file Sexual Orientation Not on file Last Filed Vital Signs Vital Sign Reading Time Taken Comments Blood Pressure 132/68 10/11/2024 9:45 AM GAMEMASTER Pulse 54 10/11/2024 9:45 AM GAMEMASTER Temperature 36.6 C (97.8 F) 10/11/2024 9:45 AM GAMEMASTER Respiratory Rate 12 09/24/2024 3:22 PM GAMEMASTER Oxygen Saturation 99% 10/11/2024 9:45 AM GAMEMASTER Inhaled Oxygen Concentration - - Weight 74.8 kg (165 lb) 12/29/2024 3:11 PM CDT Height 160 cm (5' 3 ) 12/29/2024 3:11 PM CDT Body Mass Index 29.23 12/29/2024 3:11 PM CDT Plan of Treatment Upcoming Encounters Date Type Department Care Team (Late st Contact Info) Description 01/07/2025 2:30 PM CDT Physical Therapy [facility] [address] [place] [address] Joan Kaufman, PAC [address] [place] [address] Zainab Butt, PT [place] Discharge Disposition: Discharged to home or Selfcare 01/10/2025 10:00 AM CDT Hospital Encounter [facility] [address] [place] [address] Katherine Mijares MD PhD [address] [place] [address] 01/10/2025 10:00 AM CDT - 01/10/2025 10:20 AM CDT Surgery [facility] [address] [place] [address] Katherine Mijares MD PhD [address] [place] [address] CATARACT EXTRACTION WITH INTRAOCULAR LENS PLACEMENT, RIGHT EYE 01/13/2025 3:30 PM CDT [facility] - [place] [address] [place] [address] Romaine Bolanos MD [address] [place] [address] 01/14/2025 2:30 PM CDT Physical Therapy [facility] [address] [place] [address] Joan Kaufman, PAC [address] [place] [address] Zainab Butt, PT [place] Scheduled Procedures Name Priority Associated Diagnoses Date/Ti me CATARACT EXTRACTION WITH IOL IMPLANT VISUALLY SIGNIFICANT CATARACT, RIGHT EYE 01/10/2025 10:00 AM CDT Health Maintenance Due Date Last Done Comments Hepatitis C Virus (HCV) Screening 1965 Hepatitis B Immunization (1 of 3 - 19+ 3-dose series) 12/30/1986 Immunochemical Fecal Occult Blood 12/30/2017 Cologuard 11/02/2023 11/02/2020 SARS-COV-2 Immunization ( season) 2024 Diabetes: Hemoglobin A1c 12/16/2024 024, 03/16/2024, 11/25/2023, Additional history exists Lung Cancer Screening 01/20/2025 01/21/2024, 022 Diabetes: Nephropathy Screening 06/18/2025 06/18/2024, 11/25/2023, 09/20/2022, Additional history exists Diabetes: Eye Exam 08/02/2025 08/02/2024, 0 03/22/2024, 03/18/2024, Additional history exists Mammogram 08/03/2025 08/03/2024, 06/24, 04/24/2022, Additional history exists Diabetes: Foot Exam 10/11/2025 10/11/2024, Colonoscopy High Risk 03/02/2026 03/02/2021 Colorectal Cancer Screening 03/02/2026 Pap Smear 04/11/2026 04/11/2023 Cervical Cancer Screening (CCS) 04/11/2028 HPV/Cotest 04/11/2028 04/11/2023 Colonoscopy 03/02/2031 03/02/2021 Td Immunization Every 10 Years (Adults With 1 Tdap) 03/14/2031 03/14/2021 Respiratory Syncytial Virus (RSV) Immunization (Adult) (1 - 1-dose 75+ series) 12/30/2042 DTaP/Tdap/Td Immunization Discontinued 03/14/2021 Pneumococcal Immunization (50+ years) Completed 11/25/2023 Pneumococcal Immunization Combined Discontinued 11/25/2023 Influenza Immunization Completed , 09/20/2022, 06/15/2019, Additional history exists Zoster Immunization Completed 08/10/2024, 06/18/2024, 03/18/2024 Meningococcal Immunization (ACWY) Aged Out No longer eligible based on patient's age to complete this topic Rotavirus Immunization Aged Out No lo nger eligible based on patient's age to complete this topic Procedures Procedure Name Priority Date/Time Associated Diagnosis Comments ZULY SCREENING BILATERAL DIGITAL W CAD W MILKA Routine 08/03/2024 7:10 AM GAMEMASTER Visit for screening mammogram HM DILATED EYE EXAM 08/02/2024 1 2:00 AM GAMEMASTER CMP (COMPREHENSIVE METABOLIC PANEL) Routine 06/18/2024 6:58 AM CDT Essential hypertension, benign Mixed hyperlipidemia HEMOGLOBIN A1C W/ ESTIMATED GLUCOSE Routine 06/18/2024 6:58 AM CDT Type 2 diabetes mellitus without complication, with long-term current use of insulin (HCC) CT CHEST SCREENING WO Routine 01/21/2024 2:47 PM CDT Smoking greater than 20 pack years HUMAN PAPILLOMA VIRUS (HPV) Routine 04/11/2023 1:57 PM CDT Encounter for well woman exam with routine gynecological exam PATHOLOGY CYTOLOGY CARBONATING STONE CLEANER Routine 04/11/2023 1:57 PM CDT Encounter for well woman exam with routine gynecological exam COLOGUARD Routine 11/02/2020 6:45 AM GAMEMASTER Screening for colorectal cancer from Last 3 Months or Most Recently Relevant to Health Maintenance Results * ZULY SCREENING BILATERAL DIGITAL W CAD W MILKA (08/03/2024 7:10 AM GAMEMASTER) Anatomical Region Laterality Modality breast Bilateral Mammography 08/03/2024 7:50 AM GAMEMASTER Narrative 08/04/2024 12:37 PM GAMEMASTER - ZULY SCREENING BILATERAL DIGITAL W CAD W [place] BILATERAL DIGITAL SCREENING MAMMOGRAM 3D/2D WITH CAD WITH MEDIOLATERAL OBLIQUE CRANIOCAUDAL: 08/03/2024 The study was acquired using digital technology and interpreted from soft copy. Current study was also evaluated with ICAD version 7.2. 2D digital mammographic views, as well as 3D digital tomosynthesis were performed in the CC and MLO projections. CLINICAL: Routine screening. Patient has no complaints. Patient reports 15-20 pound weight loss since last mammogram. No personal history of cancer. No family history of breast cancer. COMPARISONS: Comparison is made to exams dated: 07/22/2023, 04/24/2022, [facility] BREAST TISSUE:There are scattered areas of fibroglandular density. FINDINGS: There are benign appearing calcifications in both breasts. No significant masses, calcifications, or other findings are seen in either breast. There has been no significant interval change. IMPRESSION: BENIGN There is no mammographic evidence of malignancy. A 1 year screening mammogram is recommended. A letter will be sent to the patient with these results. The patient will be entered into a reminder system with a target due date of 1 year for her next screening exam. Electronically signed by: Evie ca/trey:08/03/2024 22:03:38 Public School Teacher(s): RT Ximena(R)(M), [facility] letter sent: Normal Exam Reading location: [place] Mammogram BI-RADS: Category 2: Benign Procedure Note Evie Cha MD - 08/04/2024 - ZULY SCREENING BILATERAL DIGITAL W CAD W [place] BILATERAL DIGITAL SCREENING MAMMOGRAM 3D/2D WITH CAD WITH MEDIOLATERAL OBLIQUE CRANIOCAUDAL: 08/03/2024 The study was acquired using digital technology and interpreted from soft copy. Current study was also evaluated with ICAD version 7.2. 2D digital mammographic views, as well as 3D digital tomosynthesis were performed in the CC and MLO projections. CLINICAL: Routine screening. Patient has no complaints. Patient reports 15-20 pound weight loss since last mammogram. No personal history of cancer. No family history of breast cancer. COMPARISONS: Comparison is made to exams dated: 07/22/2023, 04/24/2022, and 02/21/2021 [facility]. BREAST TISSUE:There are scattered areas of fibroglandular density. FINDINGS: There are benign appearing calcifications in both breasts. No significant masses, calcifications, or other findings are seen in either breast. There has been no significant interval change. IMPRESSION: BENIGN There is no mammographic evidence of malignancy. A 1 year screening mammogram is recommended. A letter will be sent to the patient with these results. The patient will be entered into a reminder system with a target due date of 1 year for her next screening exam. Electronically signed by: Evie ca/trey:08/03/2024 22:03:38 Public School Teacher(s): RT Ximena(R)(M), [facility] letter sent: Normal Exam Reading location: [place] Mammogram BI-RADS: Category 2: Benign Romaine Bolanos MD IMG MAMMO ORDERABLES Final Result * HM DILATED EYE EXAM (08/02/2024 12:00 AM GAMEMASTER) 08/02/2024 us Provider Scan PROCEDURE/MINOR SURGICAL ORDERAB LES Final Result SCAN * HEMOGLOBIN A1C W/ ESTIMATED GLUCOSE (06/18/2024 6:58 AM CDT) HGB-A1C 5.7 4.0 - 6.0 % 06/18/2024 10:28 AM CDT [facility] Est Average Glucose 116.9 mg/dL 06/18/2024 10:28 AM CDT [facility] Blood Venipuncture / Unknown 06/18/2024 6:58 AM CDT 06/18/2024 9:13 AM CDT Narrative [facility] - 06/18/2024 10:28 AM CDT HEMOGLOBIN A1C: DIABETIC PATIENTS: WELL-CONTROLLED: 6.2 - 7.0 INTERMEDIATE WELL-CONTROLLED: 7.0 - 9.0 POORLY-CONTROLLED: >9.0 us Romaine Bolanos MD CHEMISTRY ORDERABLES Final Result [facility] [address] [place] [address] * (ABNORMAL) CMP (COMPREHENSIVE METABOLIC PANEL) (06/18/2024 6:58 AM CDT) SODIUM 144 136 - 145 mmol/L 06/18/2024 9:38 AM CDT [facility] POTASSIUM 3.8 3.5 - 5.1 mmol/L 06/18/2024 9:38 AM CDT [facility] CHLORIDE 104 98 - 107 mmol/L 06/18/2024 9:38 AM CDT [facility] CO2, VENOUS 32(H) 22 - 30 mmol/L 06/18/2024 9:38 AM CDT [facility] ANION GAP 11.8 <18.0 mmol/L 06/18/2024 9:38 AM CDT [facility] GLUCOSE 102(H) 70 - 99 mg/dL 06/18/2024 9:38 AM CDT [facility] BUN 7(L) 10 - 20 mg/dL 06/18/2024 9:38 AM CDT [facility] CREATININE, BLOOD 0.81 0.60 - 1.00 mg/dL 06/18/2024 9:38 AM CDT [facility] BUN/CREATININE RATIO 9(L) 12 - 20 ratio 06/18/2024 9:38 AM CDT [facility] TOTAL PROTEIN 7.5 6.3 - 8.2 g/dL 06/18/2024 9:38 AM CDT [facility] ALBUMIN 3.9 3.5 - 5.0 g/dL 06/18/2024 9:38 AM T [facility] A/G RATIO 1.1 1.0 - 2.2 06/18/2024 9:38 AM CDT [facility] CALCIUM 9.7 8.7 - 10.5 mg/dL 06/18/2024 9:38 AM CDT [facility] T BILI 0.6 0.2 - 1.2 mg/dL 06/18/2024 9:38 AM CDT [facility] SGOT (AST) 25 5 - 34 U/L 06/18/2024 9:38 AM CDT [facility] SGPT (ALT) 19 0 - 55 U/L 06/18/2024 9:38 AM T [facility] ALKALINE PHOSPHATASE 102 40 - 150 U/L 06/18/2024 9:38 AM T [facility] IS THE PATIENT REQUIRED TO BE FASTING? No 06/18/2024 9:38 AM CDT [facility] GFR, ESTIMATED >60 >=60 06/18/2024 9:38 AM T [facility] Comment: Creatinine Clearance is the preferred criteria for selecting drug dose adjustments in renally impaired patients. The GFR is provided as additional pertinent clinical information. GFR is reported in mL/min/1.73 sq m. Calculation based on the Chronic Kidney Disease Epidemiology Collaboration (CKD- EPI) equation refit without adjustment for race. GFR, EST. >60 >=60 024 9:38 AM CDT [facility] GFR, EST. NONAFRICAN >60 >=60 06/18/2024 9:38 AM T [facility] Blood Venipuncture / Unknown 06/18/2024 6:58 AM CDT 06/18/2024 9:12 AM CDT Romaine Bolanos MD CHEMISTRY ORDERABLES Final Result [facility] [email or web address] LAB #[address] [place] [address] * CT CHEST SCREENING WO (01/21/2024 2:47 PM CDT) Anatomical Region Laterality Modality Chest N/A Computed Tomogra phy 01/22/2024 10:3 3 AM CDT Impressions 01/22/2024 10:35 AM CDT IMPRESSION: Stable pulmonary micronodule in the right upper lobe. No new or suspicious pulmonary nodule. Lung-RADS category 2: Benign appearance or behavior. Recommendation: Low dose Screening CT of chest in 12 months. Narrative 01/22/2024 10:35 AM CDT EXAM DESCRIPTION: CT CHEST SCREENING WO REASON FOR STUDY: Screening CT of the chest in a current smoker with a 60 pack year smoking history. Additional history: None. TECHNIQUE: Low dose CT scan of the chest was performed without intravenous contrast using helical scanning technique. The exam extends from the lung apices through the lung bases. Automatic exposure control was used as a dose optimization technique. NOTE: This study was performed for the specific purposes of lung cancer screening and is not an alternative to diagnostic chest CT. RADIATION DOSE: CT dose index volume (CTDIvol) = 3.62 mGy COMPARISON: CT chest 12/28/2021 FINDINGS: SMOKING RELATED LUNG DISEASE: Mild emphysema. LUNG NODULES: No significant changes in the 2-3 mm nodule in the right upper lobe (5/94-101). CORONARY ARTERY CALCIFICATION: Present OTHER: Stable calcified granuloma in the right lung. No focal consolidation, pleural effusion or pneumothorax. Normal-sized heart without pericardial effusion. Normal caliber of the great vessels. Atherosclerotic calcification of the aorta and coronary arteries. Calcified mediastinal and hilar lymph nodes. Visualized upper abdomen demonstrates calcified granulomata within the spleen. No acute findings. No suspicious osseous findings. THIS IS AN ELECTRONICALLY VERIFIED FINAL REPORT 01/22/2024 10:33 AM - Electronically signed by Ngozi Washington M.D. FT: FT Report ID: [id number] Reading Location: [id number] Procedure Note Ngozi Lew MD - 01/22/2024 EXAM DESCRIPTION: CT CHEST SCREENING WO REASON FOR STUDY: Screening CT of the chest in a current smoker with a 60 pack year smoking history. Additional history: None. TECHNIQUE: Low dose CT scan of the chest was performed without intravenous contrast using helical scanning technique. The exam extends from the lung apices through the lung bases. Automatic exposure control was used as a dose optimization technique. NOTE: This study was performed for the specific purposes of lung cancer screening and is not an alternative to diagnostic chest CT. RADIATION DOSE: CT dose index volume (CTDIvol) = 3.62 mGy COMPARISON: CT chest 12/28/2021 FINDINGS: SMOKING RELATED LUNG DISEASE: Mild emphysema. LUNG NODULES: No significant changes in the 2-3 mm nodule in the right upper lobe (-101). CORONARY ARTERY CALCIFICATION: Present OTHER: Stable calcified granuloma in the right lung. No focal consolidation, pleural effusion or pneumothorax. Normal-sized heart without pericardial effusion. Normal caliber of the great vessels. Atherosclerotic calcification of the aorta and coronary arteries. Calcified mediastinal and hilar lymph nodes. Visualized upper abdomen demonstrates calcified granulomata within the spleen. No acute findings. No suspicious osseous findings. THIS IS AN ELECTRONICALLY VERIFIED FINAL REPORT 01/22/2024 10:33 AM - Electronically signed by Ngozi Washington M.D. FT: FT Report ID: [id number] Reading Location: [id number] IMPRESSION: Stable pulmonary micronodule in the right upper lobe. No new or suspicious pulmonary nodule. Lung-RADS category 2: Benign appearance or behavior. Recommendation: Low dose Screening CT of chest in 12 months. us Romaine Bolanos MD IMG CT ORDERABLES Final Res ult * PATHOLOGY CYTOLOGY CARBONATING STONE CLEANER (04/11/2023 1:57 PM CDT) SPECIMEN ADEQUACY Satisfactory for evaluation. Endocervical/transf ormation zone component is present. 04/18/2023 7:45 AM CDT [facility] DESCRIPTIVE DIAGNOSIS NEGATIVE FOR INTRAEPITHELIAL LESIONS OR MALIGNANCY. 04/18/2023 7:45 AM CDT [facility] at 0745 CDT OTHER FINDINGS Fungal organisms present, morphologically consistent with Janae species. 04/18/2023 7:45 AM CDT [facility] Automated Examination Analysis of this sample has been assisted by an automated imaging and review system ([facility] [employer] [facility], [employer], [place], [place]). This case is further evaluated and finalized by a disulfurizer tender and/or pathologist. 04/18/2023 7:45 AM CDT [facility] Disclaimer The PAP smear is a screening test designed to detect cancerous or precancerous cells of the uterine cervix. It is one of the best means available for detection of cervical cancer but still carries an inherent false-negative rate. The consequences of a false-negative PAP result can be minimized by adhering to current screening guidelines. The following are general guidelines recommended by the ACS, ASCP, ASCCP, and ACOG: PAP testing is recommended every three years for women 21-29, Co-Testing , a PAP test in conjunction with an HPV (Human Papillomavirus) test for women ages 30-65, and no PAP or HPV testing for women under the age of 21 or older than 65 unless clinically indicated. 04/18/2023 7:45 AM CDT [facility] Other CERVIX UTERI STRUCTURE / Unknown Non-Phlebotomy Collection / Unknown 04/11/2023 1:57 PM CDT 04/11/2023 1:57 PM CDT us Marily Vega RETAIL BRANCH MANAGER, GARDEN WORKER PATHOLOGY/CYTOLOGY ORDER JOJO Final Result [facility] [address] [place] [address], * HUMAN PAPILLOMA VIRUS (HPV) (04/11/2023 1:57 PM CDT) HPV OTHER HIGH RISK TYPES, PCR NEGATIVE NEGATIVE 04/14/2023 4:37 PM CDT [facility] Comment: The following Other High Risk types were not detected: 31, 33, 35, 39, 45, 51, 52, 56, 58, 59, 66, and 68. A negative high-risk HPV result does not exclude the possibility of future cytologic HSIL or underlying CIN2-3 or cancer. The presence of PCR inhibitors may cause false negative or invalid results. If concentrations of whole blood in the sample exceed 1.5% (dark red or brown coloration) in PreservCyt solution, there is a likelihood of obtaining a false-negative result. HPV TYPE 16 NEGATIVE NEGATIVE 04/14/2023 4:37 PM CDT [facility] Comment: A negative high-risk HPV result does not exclude the possibility of future cytologic HSIL or underlying CIN2-3 or cancer. The presence of PCR inhibitors may cause false negative or invalid results. If concentrations of whole blood in the sample exceed 1.5% (dark red or brown coloration) in PreservCyt solution, there is a likelihood of obtaining a false-negative result. HPV TYPE 18 NEGATIVE NEGATIVE 04/14/2023 4:37 PM CDT [facility] Comment: A negative high-risk HPV result does not exclude the possibility of future cytologic HSIL or underlying CIN2-3 or cancer. The presence of PCR inhibitors may cause false negative or invalid results. If concentrations of whole blood in the sample exceed 1.5% (dark red or brown coloration) in PreservCyt solution, there is a likelihood of obtaining a false-negative result. HPV ORDER BE USED FOR SCREENING OR DIAGNOSTIC SCREENING 04/14/2023 4:37 PM CDT [facility] Other Non-Phlebotomy Collection / Unknown 04/11/2023 1:57 PM CDT 04/11/2023 1:57 PM CDT Narrative [facility] - 04/14/2023 4:37 PM CDT Performed by Real-Time Polymerase Chain Reaction (PCR) on the Tracy Cheryl 4800. This assay has been validated for use with post-aliquot samples from the [employer]5000 processor. us Marily Vega RETAIL BRANCH MANAGER, GARDEN WORKER LAB SEND OUTS Final Re sult [facility] [address] [place] [address], [place] [facility] [[email or web address] LAB #1 [place] [address] * (ABNORMAL) COLOGUARD (11/02/2020 6:45 AM GAMEMASTER) Cologuard Positive (A) Not Applicable [facility] Comment: It is recommended that a positive Cologuard screen be clinically correlated and followed-up with a structural examination of the colon such as diagnostic colonoscopy. Colonoscopies performed for a positive Cologuard may find as the most clinically significant lesion: colorectal cancer [4.0%], advanced adenoma (including sessile serrated polyps greater than or equal to 1cm diameter) [20%] or non- advanced adenoma [31%]; or no colorectal neoplasia [45%]. These estimates are derived from a prospective cross-sectional screening study of 10,000 individuals at average risk for colorectal cancer who were screened with both Cologuard and colonoscopy. (Table 3, Deiys Ferrell al, N Engl J Med 2014;370(14):3343-9994.) The normal value (reference range) for this assay is negative. TEST TYPE: Composite algorithmic analysis of stool DNA-biomarkers with hemoglobin immunoassay. Quantitative values of individual biomarkers are not reportable and are not associated with individual biomarker result reference ranges. PRECAUTIONS AND LIMITATIONS: Cologuard is intended for colorectal cancer screening of adults of either sex, 45 years or older, who are at average-risk for colorectal cancer (CRC). Cologuard has been approved for use by the U.S. FDA. Cologuard may produce a false negative or false positive result. A negative Cologuard test result does not guarantee the absence of CRC or advanced adenoma (pre-cancer). Patients with a negative Cologuard test result should be advised to continue participating in a colorectal cancer screening program. The screening interval for Cologuard is currently recommended at an interval of every 3 years by the [place] Cancer Society and U.S. Multi-Society Task Force. A false positive result occurs when Cologuard produces a positive result, even though a colonoscopy may not find colorectal cancer or precancerous polyps. The performance of Cologuard has been established in a cross sectional study (i.e., single point in time) of average-risk adults aged 50-84. Cologuard performance in patients ages 45 to 49 years was estimated by sub-group analysis of near-age groups. Cologuard performance data in a 10,000 patient pivotal study using colonoscopy as the reference method can be accessed at the following location: [email or web address]/results. Additional description of the Cologuard test process, warnings and precautions can be found at www.cologuardtest.com. Rx only. Stool specimen (specimen) 11/02/2020 6:45 AM GAMEMASTER 11/03/2020 9:30 AM GAMEMASTER Romaine Bolanos MD BODY FLUIDS & STOOLS ORDERA KATARZYNA Final Result [employer] [address] [place] [address], [employer] [address] [place] [address] from Last 3 Months or Most Recently Relevant to Health Maintenance Insurance [facility] [id number] Care Teams Supervisory Investigative Specialist Relationship Specialty Start Date End Date Romaine Bolanos MD [address] [place] [address] PCP - General Internal Medicine 12/05/15 Curry Garcia MD #[address] [address] General Surgery 12/06/15 Robbin Shelton PAC [address] [place] [address] Physician Cylinder Head Assembler Physician Cylinder Head Assembler 02/11/24"
--- OUTSIDE RECORDS SUMMARY | 2024-12-31 16:33 | XMS_ITS | Encounter Summary ---
Author Organization [facility] Address [address] [place] [address] Phone Care Team Providers Care Vertical Roll Operator Name Role Phone Romaine Bolanos MD Primary Care Provider [phone] Curry Garcia MD Unavailable [phone] Robbin Shelton PAC Unavailable [phone] Reason for Visit * Reason Comments Medication Refill Encounter Details Date Type Department Care Team (Late st Contact Info) Description 06/14/2022 Refill [facility] - Internal Medicine [facility] [address] [place] [address] Romaine Bolanos MD [address] [place] [address] Medication Refill Social History Tobacco [...] suspected to have Coronavirus/COVID-19? No / Unsure 05/27/2022 8:44 PM CDT documented as of this encounter Miscellaneous Notes * Telephone Encounter - Dyana Shin RN - 06/14/2022 6:56 AM CDT Medication failed the protocol, provider to review and approve the medication order if appropriate. Requested Prescriptions Pending Prescriptions Disp Refills HumaLOG Mix 75/25 KwikPen (75-25) 100 UNIT/ML Suspension Pen-injector [Pharmacy Med Name: HUMALOG MIX 75/25 KWKPN 3ML 5 75/25] 30 mL 7 Sig: INJECT 36 UNITS UNDER THE SKIN TWICE A DAY BEFORE MEALS Not Delegated - Insulin Protocol Failed - 06/14/2022 5:00 AM Failed - This refill cannot be delegated Passed - Visit with relevant provider in past 12 months or upcoming 90 days Recent Visits Date Type Provider Dept 05/28/22 Office Visit Romaine Bolanos MD [facility] [place] 02/06/22 Office Visit Romaine Bolanos MD [facility] 11/06/21 Office Visit Romaine Bolanos MD [facility] 07/25/21 Office Visit Joan Kaufman PAC [facility] [place] Showing recent visits within past 365 days and meeting all other requirements Future Appointments Date Type Provider Dept 08/27/22 Appointment Romaine Bolanos MD [facility] [place] Showing future appointments within next 90 days and meeting all other requirements documented in this encounter Plan of Treatment Upcoming Encounters Date Type Department Care Team (Late st Contact Info) Description 01/07/2025 2:30 PM CDT Physical Therapy [facility] at [facility] [address], [address] [place] [id number] Joan Kaufman, PAC [address] [place] [address] Zainab Butt PT [place] Discharge Disposition: Discharged to home or Selfcare 01/10/2025 10:00 AM CDT [facility] [address] [place] [address] Katherine Mijares MD PhD [address] [place] [address] 01/10/2025 10:00 AM CDT - 01/10/2025 10:20 AM CDT [facility] [address] [place] [address] Katherine Mijares MD PhD [address] [place] [address] CATARACT EXTRACTION WITH INTRAOCULAR LENS PLACEMENT, RIGHT EYE 01/13/2025 3:30 PM CDT [facility] [place] [address] [place] [address] Romaine Bolanos MD [address] [place] [address] 01/14/2025 2:30 PM CDT Physical [facility] [address] [facility], [address] [place] [address] Joan Kaufman, ARA [address] [place] [address] Zainab Butt, PT [place] Scheduled Procedures Name Priority Associated Diagnoses Date/Ti me CATARACT EXTRACTION WITH IOL IMPLANT VISUALLY SIGNIFICANT CATARACT, RIGHT EYE 01/10/2025 10:00 AM CDT documented as of this encounter Visit Diagnoses Not on filedocumented in this encounter Additional Health Concerns Infection Onset Date Last Indicated Resolved Time Respiratory Rule Out - RPA 11/13/2022 11/13/2022 0 11/13/2022 10:28 AM CADD TECHNICIAN Respiratory Rule Out - RPA 11/28/2022 11/28/2022 0 11/28/2022 1:36 PM CADD TECHNICIAN Assessment Noted Time PHQ-9 Depression Total Score: 0 07/25/20 21 12:00 PM CDT documented as of this encounter Care Teams Vertical Roll Operator Relationship Specialty Start Date End Date Romaine Bolanos MD [address] [place] [address] PCP - General Internal Medicine 12/05/15 Curry Garcia MD #[address] [address] General Surgery 12/06/15 Robbin Shelton PAC [address] [place] [address] Physician Pack Changer Physician Pack Changer 02/11/24 documented as of this encounter
[2024-12-31 16:36] VITALS: BP 141/74; PULSE 85; RESP 18; TEMP 36.6; O2SAT 97
[2024-12-31 16:49] LABS: EDUAAPPEAR Cloudy; EDUABILI Negative (Negative); EDUABLOOD 3+ (Negative); EDUACOLOR1 Tea Colored; EDUAGLUCOSE Negative (Negative); EDUAKETONE Negative (Negative); EDUALEUKO 3+ (Negative); EDUANITRATE Negative (Negative); EDUAPH 5.5; EDUAPROTEIN 1+ (Negative); EDUAUROBILI 0.2
== END 2024-12-31 16:53 | disposition home or self-care (01) ==
PROVIDERS: Emergency Provider Nurse Practitioner; PCP Internal Medicine
DX: N30.01 Acute cystitis with hematuria (principal); B96.1 Klebsiella pneumoniae [K. pneumoniae] as the cause of diseases classified elsewhere; I10 Essential (primary) hypertension; E78.00 Pure hypercholesterolemia, unspecified
CPT/HCPCS: 81003; 87086; 87186; 99213; G0463

== ENCOUNTER 2025-01-15 15:03 | Emergency (ER) | payer OTHER, SELFPAY ==
--- OUTSIDE RECORDS SUMMARY | 2025-01-15 15:05 | XMS_ITS | Encounter Summary ---
Author Organization [facility] Address [address] [place] [address] Phone Care Team Providers Care Sap Developer Name Role Phone Romaine Bolanos MD Primary Care Provider [phone] Curry Garcia MD Unavailable [phone] Robbin Shelton PAC Unavailable [phone] Reason for Visit * Reason Comments Medication Refill Encounter Details Date Type Department Care Team (Late st Contact Info) Description 01/16/2024 Refill [facility] Medical [facility] - Internal Medicine [facility] [address] [place] [address] Romaine Bolanos MD [address] [place] [address] Medication Refill Social History Tobacco Use Types Packs/Day Years Used Date Smoking Tobacco: Every Day Cigarettes 1 30 Passive Smoke Exposure: Current Smokeless Tobacco: Never Alcohol Use Standard Drinks/Week Comments Yes 0 (1 standard drink = 0.6 oz pur e alcohol) rarely [facility] Utilities Answer Date Recorded In the past [...] How often do you attend chur or worship services? More than 4 times per year 11/25/2023 Do you belong to any clubs o r organizations such as orthodoxy groups, unions, fraternal or athletic groups, or [...] Total Score - Questions 1-9 0 01/2024 [facility] Occupational Stress Questionnaire Answer Date [...] place to sleep or slept in a group home (including now)? No 11/25/2023 Sexually Active Control [...] AM CDT Medication(s) refilled and [facility] per [facility] Chronic Medication Refill Standing Order for [...] Dept 12/25/23 Office Visit Romaine Bolanos MD [facility] 11/25/23 Office Visit Romaine Bolanos MD [facility] 08/26/23 Office Visit Romaine Bolanos MD [facility] 07/14/23 Appointment Romaine oBlanos MD [facility] 05/20/23 Office Visit Romaine Bolanos MD [facility] Showing recent visits within past 365 days and meeting all other requirements Future Appointments Date Type Provider Dept 03/16/24 Appointment Romaine Bloanos MD [facility] Showing future appointments [...] Office Visit Romaine Bolanos MD [facility] 11/25/23 Office Visit Romaine Bolanos MD [facility] 08/26/23 Office Visit Romaine [facility] MD [facility] Dept 12/25/23 [facility] 11/25/23 Office Visit Romaine Bolanos MD [facility] 08/26/23 Office Visit Romaine Bolanos MD [facility] [place] Showing recent visits within past 182 days and meeting all other requirements Future Appointments Date Type Provider Dept 03/16/24 Appointment Romaine Bolanos MD [facility] [place] Showing future appointments within next 90 days and meeting all other requirements documented in this encounter Plan of Treatment Upcoming Encounters Date Type Department Care Team (Late st Contact Info) Description 01/17/2025 2:00 PM CDT Physical Therapy [facility] Rehab at [address], [address] [place] [address] Joan Kaufman, PAC [address] [facility] [address] Jorge L Pan, ASSISTANT CLINICAL NURSE MANAGER [place] Discharge Disposition: Discharged to home or Selfcare 01/26/2025 1:00 PM CDT Physical Therapy [facility] at [address] [place] [address] Joan Kaufman, PAC [address] [place] [address] Jorge L Pan PTA [place] 01/28/2025 3:15 PM CDT [facility] [address], [address] [place] [address] Joan Kaufman, PAC [address] [place] [address] Zainab Butt, PT [place] 04/14/2025 8:45 AM CDT Office Visit [facility] [address] [place] [address] Romaine Bolanos MD [address] [place] [address] documented as of this encounter Visit Diagnoses Not on filedocumented in this encounter Additional Health Concerns Assessment Noted Time PHQ-9 Depression Total Score: 0 11/25/19 24 3:06 PM POWER TRANSFORMER REPAIR SUPERVISOR documented as of this encounter Care Teams Sap Developer Relationship Specialty Start Date End Date Romaine Bolanos MD [address] [place] [address] PCP - General Internal Medicine 12/05/15 Curry Garcia MD [address] [address] General Surgery 12/06/15 Robbin Shelton PAC [address] [place] [address] Physician Tailing Machine Operator Physician Tailing Machine Operator 02/11/24 documented as of this encounter
--- OUTSIDE RECORDS SUMMARY | 2025-01-15 15:05 | XMS_ITS | Encounter Summary ---
Author Organization [facility] Address [address] [place] [address] Phone Care Team Providers Care Body Designer Name Role Phone Romaine Bolanos MD Primary Care Provider [phone] Curry Garcia MD Unavailable [phone] Robbin Shelton PAC Unavailable [phone] Reason for Visit * Reason Comments Medication Refill Encounter Details Date Type Department Care Team (Late st Contact Info) Description 07/03/2020 Refill [facility] Medical Group - Internal Medicine [facility] [address] [place] [address] Romaine Bolanos MD [address] [place] [address] Medication Refill Social History Tobacco [...] Description 01/17/2025 2:00 PM CDT [facility] [address], [address] [place] [address] Joan Kaufman, PAC [address] [place] [address] Jorge L Pan PTA [place] Discharge Disposition: Discharged to home or Selfcare 01/26/2025 1:[address] Physical Therapy [facility] Rehab at [facility] [address], [address] [place] [address] Joan Kaufman, PAC [address] [place] [address] Jorge L Pan PTA [place] 01/28/2025 3:15 PM CDT [facility] [address], [address] [place] [address] Joan Kaufman, PAC [address] [place] [address] Zainab Butt PT [place] 04/14/2025 8:45 AM CDT Office Visit [facility] Medical Group - Internal Medicine - [place] [address] [place] [address] Romaine Bolanos MD [address] [place] [address] documented as of this encounter Visit Diagnoses Not on filedocumented in this encounter Additional Health Concerns Infection Onset Date Last Indicated Resolved Time Respiratory Rule Out - RPA 11/13/2022 11/13/2022 0 11/13/2022 10:28 AM FIRE CONTROL OFFICER Respiratory Rule Out - RPA 11/28/2022 11/28/2022 0 11/28/2022 1:36 PM FIRE CONTROL OFFICER documented as of this encounter Care Teams Body Designer Relationship Specialty Start Date End Date Romaine Bolanos MD [address] [place] [address] PCP - General Internal Medicine 12/05/15 Curry Garcia MD #[address] [address] General Surgery 12/06/15 Robbin Shelton PAC [address] [place] [address] Physician Grip Physician Grip 02/11/24 documented as of this encounter
--- OUTSIDE RECORDS SUMMARY | 2025-01-15 15:05 | XMS_ITS | Encounter Summary ---
Author Organization [facility] Address [address] [place] [address] Phone Care Team Providers Care Shoe Ironer Name Role Phone Romaine Bolanos MD Primary Care Provider [phone] Curry Garcia MD Unavailable [phone] Robbin Shelton PAC Unavailable [phone] Reason for Visit * Reason Comments Medication Refill Encounter Details Date Type Department Care Team (Late st Contact Info) Description 08/01/2023 Refill [facility] - Internal Medicine [facility] [address] [place] [address] Romaine Bolanos MD [address] [place] [address] Medication Refill Social History Tobacco [...] 05/20/23 Office Visit Romaine Bolanos MD [facility] Showing recent visits within past 182 days and meeting all other requirements Future Appointments Date Type Provider Dept 08/26/23 Appointment Romaine Bolanos MD [facility] [place] Showing future appointments within next 90 days and meeting all other requirements Passed - HgA1C result on record in past 6 months HGB-A1C Date Value Ref Range Status 05/20/2023 8.2 (A) 4 - 6 % Final T WORKER documented in this encounter Plan of Treatment Upcoming Encounters Date Type Department Care Team (Late st Contact Info) Description 01/17/2025 2:00 PM CDT Physical Therapy [facility] [address] [place] [address] Joan Kaufman, PAC [address] [place] [address] Jorge L Pan, GLOBAL SALES MANAGER [place] Discharge Disposition: Discharged to home or Selfcare 01/26/2025 1:00 PM CDT Physical Therapy [facility] [address] [place] [address] Joan Kaufman, PAC [address] [place] [address] Jorge L Pan PTA [place] 01/28/2025 3:15 PM CDT Physical Therapy [facility] [address] [place] [address] Joan Kaufman, PAC [address] [place] [address] Zainab Butt, PT [place] 04/14/2025 8:45 AM CDT Office Visit [facility] Medical Group - Internal Medicine - [place] [address] [place] [phone] Romaine Bolanos MD [address] [place] [address] documented as of this encounter Visit Diagnoses Not on filedocumented in this encounter Additional Health Concerns Assessment Noted Time PHQ-9 Depression Total Score: 0 09/20/20 22 8:00 AM HOIST WORKER documented as of this encounter Care Teams Shoe Ironer Relationship Specialty Start Date End Date Romaine Bolanos MD [address] [place] [address] PCP - General Internal Medicine 12/05/15 Curry Garcia MD [address] [address] General Surgery 12/06/15 Robbin Shelton PAC [address] [place] [address] Physician Uranium Processing Supervisor Physician Uranium Processing Supervisor 02/11/24 documented as of this encounter
--- OUTSIDE RECORDS SUMMARY | 2025-01-15 15:05 | XMS_ITS | Encounter Summary ---
Author Organization [facility] Address [address] [place] [address] Phone Care Team Providers Care Bee Tender Name Role Phone Romaine Bolanos MD Primary Care Provider [phone] Curry Garcia MD Unavailable [phone] Robbin Shelton PAC Unavailable [phone] Reason for Visit * Reason Comments Medication Refill Encounter Details Date Type Department Care Team (Late st Contact Info) Description 06/14/2022 Refill [facility] Medical Group - Internal Medicine [facility] [address] [place] [address] Romaine Bolanos MD [address] [place] [address] Medication Refill Social History Tobacco [...] Description 01/17/2025 2:00 PM CDT Physical Therapy [facility] [address] [place] [address] Joan Kaufman, PAC [address] [place] [address] Jorge L Pan, DINKEY ENGINE FIRER/FIREMAN [place] Discharge Disposition: Discharged to home or Selfcare 01/26/2025 1:00 PM CDT [facility] [address] [place] [address] Joan Kaufman, PAC [address] [place] [address] Jorge L Pan PTA [place] 01/28/2025 3:15 PM CDT [facility] [address] [place] [phone] Joan Kaufman, PAC [address] [place] [address] Zainab Butt PT [place] 04/14/2025 8:45 AM CDT Office Visit [facility] Medical Group - Internal Medicine - [place] [address] [place] [address] Romaine Bolanos MD [address] [place] [address] documented as of this encounter Visit Diagnoses Not on filedocumented in this encounter Additional Health Concerns Infection Onset Date Last Indicated Resolved Time Respiratory Rule Out - RPA 11/13/2022 11/13/2022 0 11/13/2022 10:28 AM CAMPAIGN FUNDRAISER Respiratory Rule Out - RPA 11/28/2022 11/28/2022 0 11/28/2022 1:36 PM CAMPAIGN FUNDRAISER Assessment Noted Time PHQ-9 Depression Total Score: 0 07/25/20 21 12:00 PM CDT documented as of this encounter Care Teams Bee Tender Relationship Specialty Start Date End Date Romaine Bolanos MD [address] [place] [address] PCP - General Internal Medicine 12/05/15 Curry Garcia MD [address] [address] General Surgery 12/06/15 Robbin Shelton PAC [address] [place] [address] Physician Parachute Rigger Physician Parachute Rigger 02/11/24 documented as of this encounter
--- OUTSIDE RECORDS SUMMARY | 2025-01-15 15:05 | XMS_ITS | Encounter Summary ---
Author Organization [facility] Address [address] [place] [address] Phone Care Team Providers Care Front Desk Attendant Name Role Phone Romaine Bolanos MD Primary Care Provider [phone] Curry Garcia MD Unavailable [phone] Robbin Shelton PAC Unavailable [phone] Reason for Visit * Reason Comments Medication Refill Encounter Details Date Type Department Care Team (Late st Contact Info) Description 11/15/2020 Refill [facility] Medical Group - Internal Medicine [facility] [address] [place] [address] Romaine Bolanos MD [address] [place] [address] Medication Refill Social History Tobacco [...] COVID-19? 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 SUPERINTENDENT documented in this encounter Plan of Treatment Upcoming Encounters Date Type Department Care Team (Late st Contact Info) Description 01/17/2025 2:00 PM CDT Physical Therapy [facility] [address] [place] [address] Joan Kaufman, PAC [address] [place] [address] Jorge L Pan, DYE RANGE FEEDER [place] Discharge Disposition: Discharged to home or Selfcare 01/26/2025 1:00 PM CDT Physical Therapy [facility] [address] [place] [address] Joan Kaufman, PAC [address] [place] [address] Jorge L Pan PTA [place] 01/28/2025 3:15 PM CDT Physical Therapy [facility] [address] [place] [address] Joan Kaufman, PAC [address] [place] [address] Zainab Butt PT [place] 04/14/2025 8:45 AM CDT [facility] - [place] [address] [place] [address] Romaine Bolanos MD [address] [place] [address] documented as of this encounter Visit Diagnoses Not on filedocumented in this encounter Additional Health Concerns Infection Onset Date Last Indicated Resolved Time Respiratory Rule Out - RPA 11/13/2022 11/13/2022 0 11/13/2022 10:28 AM MINE SUPERINTENDENT Respiratory Rule Out - RPA 11/28/2022 11/28/2022 0 11/28/2022 1:36 PM MINE SUPERINTENDENT Assessment Noted Time PHQ-9 Depression Total Score: 0 07/20/20 20 10:00 AM CDT documented as of this encounter Care Teams Front Desk Attendant Relationship Specialty Start Date End Date Romaine Bolanos MD [address] [place] [address] PCP - General Internal Medicine 12/05/15 Curry Garcia MD [address] [address] General Surgery 12/06/15 Robbin Shelton PAC [address] [place] [address] Physician Tour Operator Physician Tour Operator 02/11/24 documented as of this encounter
--- OUTSIDE RECORDS SUMMARY | 2025-01-15 15:05 | XMS_ITS | Clinical Summary ---
Author Organization [facility] Address [address] [place] [address] Care Team Providers Care Rivet Sticker Name Role Phone Rodger Bolanos MD Primary Care Provider [phone] Source Comments [facility],non-owned Affiliates and Associated Physician Practices is amultiple site organization consisting of ambulatory clinics and hospital sitesin [place], [place], [place] and [place]. This disclosure is being madepursuant to the Care Everywhere program and may not contain all information available regarding this patient. Last updated 18.[facility] [employer] Allergies No known active allergies Medications * Be aware that medications may not be up to date on this document. Alwaysverify current medications with the patient. 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 Gender Identity Not on file Sexual Orientation [...] - COLON CA SCREENING 1967 MAMMOGRAM 1967 HIV SCREENING 12/30/1982 HEPATITIS C SCREENING 12/26/1985 DTAP/TDAP/TD VACCINES (1 - Tdap) 12/30/1986 HEPATITIS B VACCINE (1 of 3 - 19+ 3-dose series) 12/30/1986 PNEUMOCOCCAL VACCINE 50+ (1 of 2 - PCV) 12/30/1986 ZOSTER VACCINE (1 of 2) 12/30/2017 SCREENING FOR DIABETES 06/29/2019 COVID-19 VACCINE ( - 2023-2 5 season) 2024 DEPRESSION SCREENING [...] on patient's age to complete this topic Insurance MEDICAID - OUT OF STATE Care Teams Rivet Sticker Relationship Specialty Start Date End Date Rodger Bolanos MD [address] [id number] PCP - General 09/06/08
--- OUTSIDE RECORDS SUMMARY | 2025-01-15 15:05 | XMS_ITS | Clinical Summary ---
Author Organization [facility] Address [address] [place] [address] Phone Care Team Providers Care Microbiology Director Name Role Phone Romaine Bolanos MD Primary Care Provider Curry Garcia MD Unavailable [phone] Robbin Shelton PAC Unavailable [phone] Allergies Active Allergy Reactions Criticality Noted Date Comments Codeine Nausea,Vomiting Low 02/13/2021 Morphine Nausea,Vomiting Low 02/13/2021 Hydrocodone-Acetaminophen Nausea,Vomiting Low 02/13 Medications Aspirin 81 MG Tablet Take 81 mg by mouth daily. Active Blood Glucose Monitoring Suppl (OneTouch Verio Flex System) w/Device KitIndication s:Type 2 diabetes mellitus without complication, with long-term current use of insulin 1 Units by Does not apply route 2 times daily. Use to check bl sugar twice a day DX TYPE 2 DM INSULIN DEP 1 Kit 03/05/20 23 Active carvedilol (COREG) 12.5 MG Tablet TAKE 1 TABLET TWICE A DAY 180 Tablet 3 01/16/20 24 Active lisinopril (PRINIVIL, ZESTRIL) 20 MG Tablet TAKE 1 TABLET DAILY 90 Tablet 3 02/02/20 24 Active Glucose Blood (OneTouch Verio) Strip USE TO CHECK BLOOD SUGAR TWICE A DAY DIRECTED 200 Strip 3 02/23/20 24 Active Lancets (OneTouch Delica Plus [id number]) Misc USE TO CHECK BLOOD SUGAR TWICE A DAY DIRECTED 200 Each 3 02/23/20 24 Active insulin lispro prot & lispro (HumaLOG Mix 75/25 KwikPen) (75-25) 100 UNIT/ML Suspension Pen-injectorI ndications:Ty pe 2 diabetes mellitus without complication, with long-term current use of insulin INJECT 36 UNITS UNDER THE SKIN TWICE A DAY BEFORE MEALS 30 mL 7 02/23/20 24 Active atorvastatin (LIPITOR) 80 MG Tablet Take 1 Tablet by mouth nightly. 90 Tablet 3 02/23/20 24 Active ezetimibe (ZETIA) 10 MG Tablet Take 1 Tablet by mouth daily. 90 Tablet 3 04/15/20 24 Active omeprazole (PriLOSEC) 20 MG CAPSULE DELAYED RELEASE Take 1 Capsule by mouth daily. 90 Capsule 1 06/24/20 24 Active Insulin Pen Needle (B-D ULTRAFINE III SHORT PEN) 31G X 8 MM Misc USE TWICE A DAY DIRECTED TO TAKE INSULIN 100 Pen Needle 3 07/12/20 24 Active hydrOXYzine (ATARAX) 25 MG Tablet TAKE 1 TABLET EVERY 8 HOURS NEEDED FOR ANXIETY 45 Tablet 23 07/23/20 24 Active escitalopram (LEXAPRO) 10 MG Tablet TAKE 1 TABLET DAILY 90 Tablet 1 01/04/20 25 Active potassium chloride CR (KLORCON) 10 MEQ Tablet Controlled Release TAKE 1 TABLET DAILY 90 Tablet 1 01/04/20 25 Active Ozempic, 2 MG/DOSE, 8 MG/3ML Solution Pen-injector 2 mg by Subcutaneous route once a week. 9 mL 1 01/14/20 25 Active escitalopram (LEXAPRO) 10 MG Tablet Take 1 Tablet by mouth daily. 90 Tablet 1 06/24/20 24 025 Discontinued potassium chloride CR (KLORCON) 10 MEQ Tablet Controlled Release Take 1 Tablet by mouth daily. 90 Tablet 1 06/24/20 24 025 Discontinued semaglutide, 1 MG/DOSE, (Ozempic, 1 MG/DOSE,) 4 MG/3ML Solution Pen-injectorI ndications:Ty pe 2 diabetes mellitus without complication, with long-term current use of insulin 1 mg by Subcutaneous route once a week. 9 mL 3 07/19/20 24 025 Discontinued(D ose adjustment) Active Problems Problem Noted Date Diagnosed Date BRAD (obstructive sleep apnea) 03/12/2021 Generalized anxiety disorder 10/20/2020 Type 2 diabetes mellitus wit hout complication, with long-term current use of insulin 07/20/2020 Mixed hyperlipidemia 07/20/2020 Essential hypertension, benign 07/20/2020 GERD without esophagitis 07/20/2020 Tobacco use 07/20/2020 Coronary artery disease invo lving cloverdale coronary artery of cloverdale heart without angina pectoris 07/20/2020 Delayed gastric emptying 12/20/2015 Calculus of gallbladder with out cholecystitis without obstruction 12/20/2015 Encounters Date Type Department Care Team Description 01/14/2025 2:30 PM CDT Physical Therapy [facility] Re[facility] at [facility] [address] [facility], [address] [address] Joan Kaufman, PAC Zainab Btut M, PT Acute pain of right knee (Primary Dx) Discharge Disposition: Discharged to home or Selfcare 01/14/2025 Travel 01/13/2025 3:30 PM CDT Office Visit [facility] - Internal Medicine - [place] [address] [place] [address] Romaine Bolanos MD Type 2 diabetes mellitus without complication, with long-term current use of insulin (Primary Dx); Essential hypertension, benign; Mixed hyperlipidemia; Coronary artery disease involving cloverdale coronary artery of cloverdale heart without angina pectoris Discharge Disposition: Discharged to home or Selfcare 01/10/2025 9:20 AM CDT - 01/10/2025 9:40 AM CDT Surgery [facility] [address] [place] [address] Katherine Mijares MD PhD CATARACT EXTRACTION WITH INTRAOCULAR LENS PLACEMENT, RIGHT EYE 01/10/2025 9:08 AM CDT Anesthesia Event [facility] [address] [place] [address] Ezequiel Guy APRN, STEPHEN 01/10/2025 7:48 AM CDT - 01/10/2025 9:31 AM CDT Hospital Encounter [facility] Preop/Pacu II [address] [facility] [place] [address] Katherine Mijares MD PhD Provider, Anesthesiologist Discharge Disposition: Discharged to home or Selfcare 01/10/2025 Results Follow-Up [facility] [address] [address] Romaine Bolanos MD CMP (COMPREHENSIVE METABOLIC PANEL), LIPID PANEL, HEMOGLOBIN A1C W/ ESTIMATED GLUCOSE 01/10/2025 Travel 01/07/2025 Travel 01/02/[address] [facility] [address] [place] [address] Romaine Bolanos MD Medication Refill 12/29/2024 Travel 12/24/2024 3:15 PM CDT Physical Therapy [facility] at [facility] [address] [place] [address] Joan Kaufman, Zainab Wallace, PT Acute pain of right knee (Primary Dx) Discharge Disposition: Discharged to home or Selfcare 12/23/2024 Travel 12/03/2024 3:30 PM CDT Physical Therapy [facility] at [facility] [address] [place] [address] Joan Kaufman, Jorge L Guzman R, POSTAL SERVICE WINDOW CLERK Acute pain of right knee (Primary Dx) Discharge Disposition: Discharged to home or Selfcare 12/03/2024 2:30 PM CDT Occupational Therapy [facility] [address], [address] [place] [address] Romaine Bolanos MD Embick, Alyssa, OT Right wrist pain (Primary Dx) Discharge Disposition: Discharged to home or Selfcare 12/02/2024 Travel 11/26/2024 2:30 PM PROFESSOR OF ANTHROPOLOGY Occupational Therapy [facility] [address] [place] [address] Romaine Bolanos MD Embick, Alyssa, OT Right wrist pain (Primary Dx) Discharge Disposition: Discharged to home or Selfcare 11/26/2024 1:15 PM PROFESSOR OF ANTHROPOLOGY Physical Therapy [facility] [address] [place] [address] Joan Kaufman, PAC Jorge L Pan R, POSTAL SERVICE WINDOW CLERK Acute pain of right knee (Primary Dx) Discharge Disposition: Discharged to home or Selfcare 11/25/2024 Travel 11/19/[address] [facility] Occupational Therapy [facility] [address] [place] [address] Cheryle Thao, OT 11/15/2024 Telephone [facility] - Orthopedic Surgery [facility] [address] [facility] [place] [address] Robbin Shelton, PAC 11/12/2024 3:15 PM PROFESSOR OF ANTHROPOLOGY Physical Therapy [facility] [address] [place] [address] Joan Kaufman, PAC Zainab Butt, PT Acute pain of right knee (Primary Dx) Discharge Disposition: Discharged to home or Selfcare 11/12/2024 2:30 PM PROFESSOR OF ANTHROPOLOGY Occupational Therapy [facility] [address] [place] [address] Romaine Bolanos MD Embick, Alyssa, OT Right wrist pain (Primary Dx) Discharge Disposition: Discharged to home or Selfcare 11/11/2024 Travel 11/05/[address] [facility] [address] [place] [address] [phone] Zainab Butt, PT Appointment 11/05/[address] [facility] [address] [place] [address] Cheryle Thao, JOY cancel 11/05/2024 Travel 11/03/2024 Telephone [facility] - Orthopedic Surgery - [address] [place] [address] Robbin Shelton, ARA 10/29/2024 2:30 PM PROFESSOR OF ANTHROPOLOGY Occupational Therapy [facility] [address], [address] [place] [address] Romaine Bolanos MD Embick, Alyssa, OT Right wrist pain (Primary Dx) Discharge Disposition: Discharged to home or Selfcare 10/27/2024 3:15 PM PROFESSOR OF ANTHROPOLOGY Physical Therapy [facility] [address] [place] [address] Joan Kaufman, Jorge L Guzman, BEULAH Acute pain of right knee (Primary Dx) Discharge Disposition: Discharged to home or Selfcare 10/27/2024 Travel 10/25/2024 Travel 10/22/2024 2:30 PM PROFESSOR OF ANTHROPOLOGY Occupational Therapy [facility] [address] [place] [address] Romaine Bolanos MD Embick, Alyssa, OT Right wrist pain (Primary Dx) Discharge Disposition: Discharged to home or Selfcare 10/22/2024 Plan of Care Documentation [facility] [address] [place] [address] 10/21/2024 12:15 PM PROFESSOR OF ANTHROPOLOGY Physical Therapy [facility] [address] [place] [address] Romaine Bolanos MD McFarlin, Courtney Michelle, Zainab Wallace, PT Acute pain of right knee (Primary Dx) Discharge Disposition: Discharged to home or Selfcare 10/20/2024 Travel from Last 3 Months Immunizations Immunization Administration Dates Next Due Influenza Vaccine 06/15/2019 Influenza Vaccine greater than 3 yrs 07/31/2015 Influenza Vaccine, Quadrivalent, PF 09/20/2022 Influenza, Seasonal, Injectable, Undefined 07/31 Influenza,Split Virus,Trivalent,Injectable,PF Pneumococcal conjugate PCV20 , polysaccharide [id number] conjugate, adjuvant, PF 11/25/2023 TDAP Vaccine 03/14/2021 [...] = 0.6 oz pur e alcohol) rarely [employer] Answer Date Recorded In the past 12 months has [employer] electric, gas, oil, or water company threatened [...] week 09/24/2024 How often do you attend chur ch or taoist services? More than 4 times per year [...] Total Score - Questions 1-9 0 09/23 [facility] - Occupational Stress [...] place to sleep or slept in a chcf (including now)? No 11/25/2023 Housing Stability Vital Sign Answer Wesley e Recorded In the last 12 months, was t here a time when you were not able to pay the mortgage or rent on time? No 09/24/2024 In the past 12 months, how m any times have you moved where you were living? 0 09/24/2024 At any time in the past 12 m [facility], were you homeless or living in a chcf (including now)? No 09/24/2024 Sexually Active Control Partners Comments Not Currently Comments No Sex and Gender Information Value Date Recorded Sex Assigned at Not on file Legal Sex Female 10:23 PM CDT Gender Identity Not on file Sexual Orientation Not on file Last Filed Vital Signs Vital Sign Reading Time Taken Comments Blood Pressure 122/66 01/13/2025 2:58 PM CDT Pulse 78 01/13/2025 2:58 PM CDT Temperature 36.7 C (98 F) 01/13/2025 2:58 PM CDT Respiratory Rate 15 01/10/2025 9:27 AM CDT Oxygen Saturation 96% 01/13/2025 2:58 PM CDT Inhaled Oxygen Concentration - - Weight 76.2 kg (168 lb) 01/13/2025 2:58 PM CDT Height 160 cm (5' 3 ) 01/13/2025 2:58 PM CDT Body Mass Index 29.76 01/13/2025 2:58 PM CDT Plan of Treatment Upcoming Encounters Date Type Department Care Team (Late st Contact Info) Description 01/17/2025 2:00 PM CDT Physical Therapy [facility] [address] [place] [address] Joan Kaufman, PAC [address] [place] [address] Jorge L Pan, BEULAH [place] Discharge Disposition: Discharged to home or Selfcare 01/26/2025 1:00 PM CDT Physical Therapy [facility] [address] [place] [address] Joan Kaufman, PAC [address] [facility] [place] [address] Jorge L Pan, BEULAH [place] 01/28/2025 3:15 PM CDT Physical Therapy [facility] [address] [place] [address] Joan Kaufman, PAC [address] [place] [address] Zainab Butt, PT [place] 04/14/2025 8:45 AM CDT Office Visit [facility] - Internal Medicine - [place] [address] [place] [address] Romaine Bolanos MD [address] [place] [address] Health Maintenance Due Date Last Done Comments Hepatitis C Virus (HCV) Screening 1965 Hepatitis B Immunization (1 of 3 - 19+ 3-dose series) 12/30/1986 Immunochemical Fecal Occult Blood 12/30/2017 Cologuard 11/02/2023 11/02/2020 SARS-COV-2 Immunization ( season) 2024 Lung Cancer Screening 01/20/2025 01/21/2024, 022 Diabetes: Hemoglobin A1c 07/09/2025 025, 06/18/2024, 03/16/2024, Additional history exists Diabetes: Eye Exam 08/02/2025 08/02/2024, 0 03/22/2024, 03/18/2024, Additional history exists Mammogram 08/03/2025 08/03/2024, 06/24, 04/24/2022, Additional history exists Diabetes: Foot Exam 10/11/2025 10/11/2024, Diabetes: Nephropathy Screening 01/07/2026 01/07/2025, 06/18/2024, 11/25/2023, Additional history exists Colonoscopy High Risk 03/02/2026 03/02/2021 Colorectal Cancer [...] on patient's age to complete this topic Medical Devices Implanted Type Area Machine Ceramic Coater Device Identifier Shelf Expiration Date Model / Serial / Lot Technis 1-Piece Iol Implanted:Qty: 1 on 01/10/2025 by Katherine Mijares MD PhD at [facility] Right: Eye 09/29/2027 [id number] / [id number] / [id number] Procedures Procedure Name Priority Date/Time Associated Diagnosis Comments EXTCAP RMVL INSERT INTRAOC PROSTH W/ECP 01/10/2025 8:59 AM CDT VISUALLY SIGNIFICANT CATARACT, RIGHT EYE Special Needs Hx of Diabetes (insulin dependent) Heart attack 2011, Cad (2 stents) Htn, smokes 1.5 ppd 5ft 3in 165lb EXTCAP INSERT INTROC PROSTH W/ECP 01/10/2025 8:59 AM CDT VISUALLY SIGNIFICANT CATARACT, RIGHT EYE Special Needs Hx of Diabetes (insulin dependent) Heart attack 2011, Cad (2 stents) Htn, smokes 1.5 ppd 5ft 3in 165lb HI XCAPSL CTRC RMVL INSJ IO LENS PROSTH W/O ECP 01/10/2025 8:59 AM CDT VISUALLY SIGNIFICANT CATARACT, RIGHT EYE Special Needs Hx of Diabetes (insulin dependent) Heart attack 2011, Cad (2 stents) Htn, smokes 1.5 ppd 5ft 3in 165lb REMV CATARACT INTRACAP,INSERT LENS 01/10/2025 8:59 AM CDT VISUALLY SIGNIFICANT CATARACT, RIGHT EYE Special Needs Hx of Diabetes (insulin dependent) Heart attack 2011, Cad (2 stents) Htn, smokes 1.5 ppd 5ft 3in 165lb HI XCAPSL CTRC RMVL INSJ IO LENS PROSTH CPLX WO ECP 01/10/2025 8:59 AM CDT VISUALLY SIGNIFICANT CATARACT, RIGHT EYE Special Needs Hx of Diabetes (insulin dependent) Heart attack 2011, Cad (2 stents) Htn, smokes 1.5 ppd 5ft 3in 165lb POCT GLUCOSE Routine 01/10/2025 8:08 AM CDT HEMOGLOBIN A1C W/ ESTIMATED GLUCOSE Routine 01/07/2025 7:09 AM CDT Type 2 diabetes mellitus without complication, with long-term current use of insulin LIPID PANEL Routine 01/07/2025 7:09 AM CDT Type 2 diabetes mellitus without complication, with long-term current use of insulin Mixed hyperlipidemia CMP (COMPREHENSIVE METABOLIC PANEL) Routine 01/07/2025 7:09 AM CDT Type 2 diabetes mellitus without complication, with long-term current use of insulin Mixed hyperlipidemia URINALYSIS (UA) RANDOM 2024 12:00 AM CDT CULTURE, URINE 2024 12:00 AM CDT ZULY SCREENING BILATERAL DIGITAL W CAD W MILKA Routine 08/03/2024 7:10 AM PROFESSOR OF ANTHROPOLOGY Visit for screening mammogram [facility] DILATED EYE EXAM 08/02/2024 12:00 AM PROFESS[address] OF ANTHROPOLOGY CT CHEST SCREENING WO Routine 01/21/2024 2:47 PM CDT Smoking greater than 20 pack years HUMAN PAPILLOMA VIRUS (HPV) Routine 04/11/2023 1:57 PM CDT Encounter for well woman exam with routine gynecological exam PATHOLOGY CYTOLOGY REFINERY OPERATOR [employer] Routine 04/11/2023 1:57 PM CDT Encounter for well woman exam with routine gynecological exam COLOGUARD Routine 11/02/2020 6:45 AM PROFESSOR OF ANTHROPOLOGY Screening for colorectal cancer from Last 3 Months or Most Recently Relevant to Health Maintenance Results * (ABNORMAL) POCT Glucose (01/10/2025 8:08 AM CDT) Pathologist [facility] GLUCOSE,BEDSID E POCT 113(H) 70 - 99 mg/dL 01/10/2025 8:14 AM CDT [facility] Blood 01/10/2025 8:08 AM CDT 01/10/2025 8:14 AM CDT us None Provider POINT OF CARE TESTING Final Resu lt [facility] [address] [place] [address] * HEMOGLOBIN A1C W/ ESTIMATED GLUCOSE (01/07/2025 7:09 AM CDT) [facility] HGB-A1C 5.7 4.0 - 6.0 % 01/07/2025 8:58 AM CDT [facility] Est Average Glucose 116.9 mg/dL 01/07/2025 8:58 AM CDT [facility] Blood Venipuncture / Unknown 01/07/2025 7:09 AM CDT 01/07/2025 7:58 AM CDT Narrative [facility] - 01/07/2025 8:58 AM CDT HEMOGLOBIN A1C: DIABETIC PATIENTS: WELL-CONTROLLED: 6.2 - 7.0 INTERMEDIATE WELL-CONTROLLED: 7.0 - 9.0 POORLY-CONTROLLED: >9.0 Specimens containing greater than 5% of Hemoglobin F may result in lower than expected % HbA1C results. Romaine Bolanos MD CHEMISTRY ORDERABLES Final Result Performing Organization Address City/[facility] Co de Phone Number [facility] [address] [place] [address] * (ABNORMAL) LIPID PANEL (01/07/2025 7:09 AM CDT) CHOLESTEROL 118 <200 mg/dL 01/07/2025 8:52 AM CDT [facility] TRIGLYCERIDES 253(H) <150 mg/dL 01/07/2025 8:52 AM CDT [facility] HDL CHOLESTEROL 29(L) >40 mg/dL 8:52 AM CDT [facility] LDL 38 <130 mg/dL 01/07/2025 8:52 AM CDT [facility] VLDL 51(H) 10 - 50 mg/dL 01/07/2025 8:52 AM CDT [facility] CHOL/HDL RATIO 4.1 0.0 - 4.4 01/07/2025 8:52 AM CDT [facility] NON-HDL CHOLESTEROL 89 <130 mg/dL 01/07/2025 8:52 AM CDT [facility] Blood Venipuncture / Unknown 01/07/2025 7:09 AM CDT 01/07/2025 7:58 AM CDT Romaine Bolanos MD CHEMISTRY ORDERABLES Final Result Performing Organization Address City/[facility]/ZIP Co de Phone Number [facility] [address] [place] [address] * (ABNORMAL) CMP (COMPREHENSIVE METABOLIC PANEL) (01/07/2025 7:09 AM CDT) SODIUM 144 136 - 145 mmol/L 01/07/2025 8:52 AM CDT [facility] POTASSIUM 3.6 3.5 - 5.1 mmol/L 01/07/2025 8:52 AM CDT [facility] CHLORIDE 106 98 - 107 mmol/L 01/07/2025 8:52 AM CDT [facility] CO2, VENOUS 31(H) 22 - 30 mmol/L 01/07/2025 8:52 AM CDT [facility] ANION GAP 10.6 <18.0 mmol/L 01/07/2025 8:52 AM CDT [facility] GLUCOSE 98 70 - 99 mg/dL 01/07/2025 8:52 AM CDT [facility] BUN 6(L) 10 - 20 mg/dL 01/07/2025 8:52 AM T [facility] CREATININE, BLOOD 0.73 0.60 - 1.00 mg/dL 01/07/2025 8:52 AM CDT [facility] BUN/CREATININE RATIO 8(L) 12 - 20 ratio 01/07/2025 8:52 AM CDT [facility] TOTAL PROTEIN 7.3 6.0 - 8.0 g/dL 01/07/2025 8:52 AM T [facility] ALBUMIN 3.8 3.5 - 5.0 g/dL 01/07/2025 8:52 AM T [facility] A/G RATIO 1.1 1.0 - 2.2 01/07/2025 8:52 AM CDT [facility] CALCIUM 9.0 8.7 - 10.5 mg/dL 01/07/2025 8:52 AM CDT [facility] T BILI 0.5 0.2 - 1.2 mg/dL 01/07/2025 8:52 AM CDT [facility] SGOT (AST) 30 <43 U/L 01/07/2025 8:52 AM CDT [facility] SGPT (ALT) 24 <56 U/L 01/07/2025 8:52 AM CDT [facility] ALKALINE PHOSPHATASE 95 40 - 150 U/L 01/07/2025 8:52 AM CDT [facility] IS THE PATIENT REQUIRED TO BE FASTING? No 01/07/2025 8:52 AM CDT [facility] GFR, ESTIMATED >60 >=60 01/07/2025 8:52 AM CDT [facility] Comment: Creatinine Clearance is the preferred criteria for selecting drug dose adjustments in renally impaired patients. The GFR is provided as additional pertinent clinical information. GFR is reported in mL/min/1.73 sq m. Calculation based on the Chronic Kidney Disease Epidemiology Collaboration (CKD- EPI) equation refit without adjustment for race. GFR, EST. >60 >=60 025 8:52 AM CDT [facility] GFR, EST. NONAFRICAN >60 >=60 01/07/2025 8:52 AM CDT [facility] Blood Venipuncture / Unknown 01/07/2025 7:09 AM CDT 01/07/2025 7:58 AM CDT Romaine Bolanos MD CHEMISTRY ORDERABLES Final Result Performing Organization Address [facility] de Phone Number [facility] [address] [place] [address] * URINALYSIS (UA) RANDOM (2024 12:00 AM CDT) 2024 us Provider Scan URINE ORDERABLES Final Result Performing Organization Address [facility] de Phone Number SCAN * CULTURE, URINE (2024 12:00 AM CDT) 2024 us Provider Scan MICROBIOLOGY - GENERAL ORDERABLE S Final Result Performing Organization Address City/[facility] de Phone Number SCAN * ZULY SCREENING BILATERAL DIGITAL W CAD W MILKA (08/03/2024 7:10 AM PROFESSOR OF ANTHROPOLOGY) Anatomical Region Laterality Modality breast Bilateral Mammography 08/03/2024 7:50 AM PROFESSOR OF ANTHROPOLOGY Narrative 08/04/2024 12:37 PM PROFESSOR OF ANTHROPOLOGY - ZULY SCREENING BILATERAL DIGITAL W CAD [...] to exams dated: 07/22/2023, 04/24/2022, and 02/21/2021 [facility]. BREAST TISSUE:There are scattered areas of fibroglandular [...] exam. Electronically signed by: Evie ca/trey:08/03/2024 22:03:38 Regulatory Affairs Portfolio Leader(s): RT Ximena(R)(M), [facility] letter sent: Normal Exam Reading location: [place] [...] to exams dated: 07/22/2023, 04/24/2022, and 02/21/2021 [facility]. BREAST TISSUE:There are scattered areas of fibroglandular [...] exam. Electronically signed by: Evie ca/trey:08/03/2024 22:03:38 Regulatory Affairs Portfolio Leader(s): RT Ximena(R)(M), [facility] letter sent: Normal Exam Reading location: [place] Mammogram BI-RADS: Category 2: Benign Romaine Bolanos MD IMG MAMMO ORDERABLES Final Result * HM DILATED EYE EXAM (08/02/2024 12:00 AM PROFESSOR OF ANTHROPOLOGY) 08/02/2024 us Provider Scan PROCEDURE/MINOR SURGICAL ORDERAB LES Final Result SCAN * CT CHEST SCREENING WO (01/21/2024 2:47 [...] Ngozi Washington M.D. FT: FT Report ID: [id number] Reading Location: [id number] Procedure Note Ngozi Lew MD - 01/22/2024 [...] Ngozi [place] M.D. FT: FT Report ID: [id number] Reading Location: [place] [address] IMPRESSION: Stable pulmonary micronodule in the right upper lobe. No new or suspicious pulmonary nodule. Lung-RADS category 2: Benign appearance or behavior. Recommendation: Low dose Screening CT of chest in 12 months. us Romaine Bolanos MD IMG CT ORDERABLES Final Res ult * PATHOLOGY CYTOLOGY REFINERY OPERATOR [employer] (04/11/2023 1:57 PM CDT) SPECIMEN ADEQUACY Satisfactory for evaluation. Endocervical/transf ormation zone component is present. 04/18/2023 7:45 AM CDT [facility] DESCRIPTIVE DIAGNOSIS NEGATIVE FOR INTRAEPITHELIAL LESIONS OR MALIGNANCY. 04/18/2023 7:45 AM CDT [facility] at 0745 CDT OTHER FINDINGS Fungal organisms present, morphologically consistent with Janae species. 04/18/2023 7:45 AM CDT [facility] Automated Examination Analysis of this sample has been assisted by an automated imaging and review system ([employer] System, [employer], [place], [place]). This case is further evaluated and finalized by a liaison engineer and/or pathologist. 04/18/2023 7:45 AM CDT [facility] Disclaimer The PAP smear is a [...] unless clinically indicated. 04/18/2023 7:45 AM CDT [facility] Other CERVIX UTERI STRUCTURE / Unknown Non-Phlebotomy Collection / Unknown 04/11/2023 1:57 PM CDT 04/11/2023 1:57 PM CDT us Marily Vega APRN, CNP PATHOLOGY/CYTOLOGY ORDER JOJO Final Result [facility] [address] [place] [address], * HUMAN PAPILLOMA VIRUS (HPV) (04/11/2023 1:57 PM CDT) HPV OTHER HIGH RISK TYPES, PCR NEGATIVE NEGATIVE 04/14/2023 4:37 PM CDT [facility] Comment: The following Other High Risk [...] 16 NEGATIVE NEGATIVE 04/14/2023 4:37 PM CDT [facility] Comment: A negative high-risk HPV result [...] 18 NEGATIVE NEGATIVE 04/14/2023 4:37 PM CDT [facility] Comment: A negative high-risk HPV result [...] OR DIAGNOSTIC SCREENING 04/14/2023 4:37 PM CDT [facility] Other Non-Phlebotomy Collection / Unknown 04/11/2023 1:57 PM CDT 04/11/2023 1:57 PM CDT Narrative [facility] - 04/14/2023 4:37 PM CDT Performed by Real-Time Polymerase Chain Reaction (PCR) on the Tracy Cheryl 4800. This assay has been validated for use with post-aliquot samples from the [employer] T5000 processor. Marily Vega SERGER, RUBBER GOODS INSPECTOR LAB SEND OUTS Final Re sult [facility] [address] [place] [address], [facility] [address] [place] [address] * (ABNORMAL) COLOGUARD (11/02/2020 6:45 AM PROFESSOR OF ANTHROPOLOGY) Cologuard Positive (A) Not Applicable [facility] Comment: It is recommended that [...] with both Cologuard and colonoscopy. (Table 3, Deisy Ramírez et al, N Engl J Med 2014;370(14):2669-4685.) The normal value (reference range) for this [...] interval of every 3 years by the [place] [employer] Society and U.S. Multi-Society Task Force. [...] can be accessed at the following location: [email or web address].Booker/results. Additional description of the Cologuard test process, warnings and precautions can be found at www.cologuardtest.com. Rx only. Stool specimen (specimen) 11/02/2020 6:45 AM PROFESSOR OF ANTHROPOLOGY 11/03/2020 9:30 AM PROFESSOR OF ANTHROPOLOGY Romaine Bolanos MD BODY FLUIDS & STOOLS ORDERA BLES Final Result [facility] [address] [place] [address], [place] [phone] [facility] [address] [place] [address] from Last 3 Months or Most Recently Relevant to Health Maintenance Insurance [facility] Care Teams Microbiology Director Relationship Specialty Start Date End Date Romaine Bolanos MD [address] [place] [address] PCP - General Internal Medicine 12/05/15 Curry Garcia MD [address] [address] General Surgery 12/06/15 Robbin Shelton PAC [address] [place] [address] Physician Certified Ophthalmic Technologist Physician Certified Ophthalmic Technologist 02/11/24
--- OUTSIDE RECORDS SUMMARY | 2025-01-15 15:05 | XMS_ITS | Encounter Summary ---
Author Organization [facility] Care Team Providers Care Supply Teacher Name Role Phone Romaine Bolanos MD Primary Care Provider [phone] Curry Garcia MD Unavailable [phone] Robbin Shelton PAC Unavailable [phone] Encounter Details Date Type Department Care Team (Latest Contact Info) Description 01/14/2025 Travel Social History Tobacco Use Types Packs/Day Years Used Date Smoking Tobacco: Every Day Cigarettes 1 30 Passive Smoke Exposure: Current Smokeless Tobacco: Never Alcohol Use Standard Drinks/Week Comments Yes 0 (1 standard drink = 0.6 oz pur e alcohol) rarely [facility] Utilities Answer Date Recorded In the past 12 months has [employer] electric, gas, oil, or water company threatened [...] often do you attend chur ch or tenriism services? More than 4 times per year 09/24/2024 Do you belong to any clubs o r organizations such as catholic groups, unions, fraternal or athletic groups, or [...] Total Score - Questions 1-9 0 09/23 [facility] - Occupational Stress [...] in a jail (including now)? No 11/25/2023 Housing Stability Vital Sign Answer Wesley e Recorded In the last 12 months, was t here a time when you were not able to pay the mortgage or rent on time? No 09/24/2024 In the past 12 months, how m any times have you moved where you were living? 0 09/24/2024 At any time in the past 12 m [facility], were you homeless or living in a jail (including now)? No 09/24/2024 Sexually Active Control Partners Comments Not Currently Comments No Sex and Gender Information Value Date Recorded Sex Assigned at Not on file Legal Sex Female 10:23 PM CDT Gender Identity Not on file Sexual Orientation Not on file documented as of this encounter Plan of Treatment Upcoming Encounters Date Type Department Care Team (Late st Contact Info) Description 01/17/2025 2:00 PM CDT Physical Therapy [facility] [address] [place] [address] Joan Kaufman, PAC [address] [place] [address] Jorge L Pan PTA [place] Discharge Disposition: Discharged to home or Selfcare 01/26/2025 1:00 PM CDT Physical Therapy [facility] [address] [place] [address] Joan Kaufman, PAC [address] [place] [address] Jorge L Pan PTA [place] 01/28/2025 3:15 PM CDT Physical Therapy [facility] [address] [place] [address] Joan Kaufman, PAC [address] [place] [address] Filomena Zainab M, PT [place] 04/14/2025 8:45 AM CDT Office Visit [facility] - Internal [facility] [address] [place] [id number] Romaine Bolanos MD [address] [address] documented as of this encounter Visit Diagnoses Not on filedocumented in this encounter Additional Health Concerns Assessment Noted Time PHQ-9 Depression Total Score: 0 10/11/19 25 9:48 AM OFFICE ENGINEER documented as of this encounter Care Teams Supply Teacher Relationship Specialty Start Date End Date Romaine Bolanos MD [address] [place] [address] PCP - General Internal Medicine 12/05/15 Curry Garcia MD [address] [address] General Surgery 12/06/15 Robbin Shelton, ARA [address] [place] [address] Physician Rail Car Painter/Sandblaster Physician Rail Car Painter/Sandblaster 02/11/24 documented as of this encounter
--- OUTSIDE RECORDS SUMMARY | 2025-01-15 15:05 | XMS_ITS | Encounter Summary ---
Author Organization [facility] Address [address] [place] [address] Phone Care Team Providers Care Poultry Farm Laborer Name Role Phone Romaine Bolanos MD Primary Care Provider Curry Garcia MD Unavailable [phone] Robbin Shelton PAC Unavailable [phone] Encounter Details Date Type Department Care Team (Late st Contact Info) Description 01/10/2025 Results Follow-Up [facility] - Internal Medicine - [place] [address] [place] [address] Romaine Bolanos MD [address] [place] [address] CMP (COMPREHENSIVE METABOLIC PANEL), LIPID PANEL, HEMOGLOBIN A1C W/ ESTIMATED GLUCOSE Social History Tobacco Use Types Packs/Day Years Used Date Smoking Tobacco: Every Day Cigarettes 1 30 Passive Smoke Exposure: Current Smokeless Tobacco: Never Alcohol Use Standard Drinks/Week Comments Yes 0 (1 standard drink = 0.6 oz pur e alcohol) rarely [facility] Utilities Answer Date Recorded In the [...] 09/24/2024 How often do you attend chur or jain services? More than 4 times per year 09/24/2024 Do you belong to any clubs o r organizations such as lutheran groups, unions, fraternal or athletic groups, or [...] place to sleep or slept in a fdc (including now)? No 11/25/2023 Housing Stability Vital [...] time in the past 12 m [facility], were you homeless or living in a fdc (including now)? No 09/24/2024 Sexually Active Control [...] Description 01/17/2025 2:00 PM CDT Physical Therapy [facility] at [facility] [address], [address] [place] [address] Joan Kaufman, PAC [address] [place] [address] Jorge L Pan, [facility] Discharge Disposition: Discharged to home or Selfcare 01/26/2025 1:00 PM CDT Physical Therapy [facility] at [facility] [address] [place] [address] Joan Kaufman, PAC [address] [place] [address] Jorge L Pan, [facility] 01/28/2025 3:15 PM CDT [facility] [address] [place] [address] Joan Kaufman, PAC [address] [place] [address] Zainab Butt PT [place] 04/14/2025 8:45 AM CDT Office Visit [facility] - Internal Medicine - [place] [address] [place] [address] Romaine Bolanos MD [address] [facility] [address] documented as of this encounter Visit Diagnoses Not on filedocumented in this encounter Additional Health Concerns Assessment Noted Time PHQ-9 Depression Total Score: 0 10/11/19 25 9:48 AM WORKDAY MANAGER documented as of this encounter Care Teams Poultry Farm Laborer Relationship Specialty Start Date End Date Romaine Bolanos MD [address] [place] [address] PCP - General Internal Medicine 12/05/15 Curry Garcia MD #2 [facility] [address] [place] [address] General Surgery 12/06/15 Robbin Shelton PAC [address] [place] [address] Physician Library Circulation Technician Physician Library Circulation Technician 5/22/24 documented as of this encounter
--- OUTSIDE RECORDS SUMMARY | 2025-01-15 15:05 | XMS_ITS | Encounter Summary ---
Author Organization [facility] Address [address] [place] [address] Phone Care Team Providers Care Gas Engine Operator Generators Name Role Phone Romaine Bolanos MD Primary Care Provider [phone] Curry Garcia MD Unavailable [phone] Robbin Shelton PAC Unavailable [phone] Reason for Visit * Reason Comments Medication Refill Encounter Details Date Type Department Care Team (Late st Contact Info) Description 10/13/2020 Refill [facility] - Internal Medicine [facility] [address] [place] [address] Romaine Bolanos MD [address] [place] [address] Medication Refill Social History Tobacco [...] 7:58 AM CST Please review and sign. ASTRUCTURE ENGINEER documented in this encounter Plan of Treatment Upcoming Encounters Date Type Department Care Team (Late st Contact Info) Description 01/17/2025 2:00 PM CDT [facility] [address] [place] [address] Joan Kaufman, PAC [address] [place] [address] Jorge L Pan, BEULAH [place] Discharge Disposition: Discharged to home or Selfcare 01/26/2025 1:00 PM CDT Physical Therapy [facility] at [facility] [address] [place] [address] Joan Kaufman, PAC [address] [place] [address] Jorge L Pan PTA [place] 01/28/2025 3:15 PM CDT Physical Therapy [facility] [address] [place] [address] Joan Kaufman, PAC [address] [place] [address] Zainab Butt PT [place] 04/14/2025 8:45 AM CDT Office Visit [facility] - Internal Medicine - [place] [address] [place] [address] Romaine Bolanos MD [address] [place] [address] documented as of this encounter Visit Diagnoses Not on filedocumented in this encounter Additional Health Concerns Infection Onset Date Last Indicated Resolved Time Respiratory Rule Out - RPA 11/13/2022 11/13/2022 0 11/13/2022 10:28 AM INFRASTRUCTURE ENGINEER Respiratory Rule Out - RPA 11/28/2022 11/28/2022 0 11/28/2022 1:36 PM INFRASTRUCTURE ENGINEER Assessment Noted Time PHQ-9 Depression Total Score: 0 07/20/20 20 10:00 AM CDT documented as of this encounter Care Teams Gas Engine Operator Generators Relationship Specialty Start Date End Date Romaine Bolanos MD [address] [place] [address] PCP - General Internal Medicine 12/05/15 Curry Garcia MD #[address] [address] General Surgery 12/06/15 Robbin Shelton PAC [address] [place] [address] Physician Veneer Stapler Physician Veneer Stapler 02/11/24 documented as of this encounter
--- OUTSIDE RECORDS SUMMARY | 2025-01-15 15:05 | XMS_ITS | Encounter Summary ---
Author Organization [facility] Address [address] [place] [address] Phone Care Team Providers Care Optical Systems Engineer Name Role Phone Romaine Bolanos MD Primary Care Provider [phone] Curry Garcia MD Unavailable [phone] Robbin Shelton PAC Unavailable [phone] Reason for Visit * Reason Comments Medication Refill Encounter Details Date Type Department Care Team (Late st Contact Info) Description 09/06/2020 Refill [facility] - Internal Medicine [facility] [address] [place] [address] Romaine Bolanos MD [address] [place] [address] Medication Refill Social History Tobacco [...] 8:19 AM CST Please review and sign. EMBROIDERER documented in this encounter Plan of Treatment Upcoming Encounters Date Type Department Care Team (Late st Contact Info) Description 01/17/2025 2:00 PM CDT [facility] [address] [place] [address] Joan Kaufman, PAC [address] [place] [address] Jorge L Pan, BEULAH [place] Discharge Disposition: Discharged to home or Selfcare 01/26/2025 1:00 PM CDT Physical Therapy [facility] at [facility] [address] [place] [address] Joan Kaufman, PAC [address] [place] [address] Jorge L Pan PTA [place] 01/28/2025 3:15 PM CDT Physical Therapy [facility] [address] [place] [address] Joan Kaufman, PAC [address] [place] [address] Zainab Butt PT [place] 04/14/2025 8:45 AM CDT Office Visit [facility] - Internal Medicine - [place] [address] [place] [address] Romaine Bolanos MD [address] [place] [address] documented as of this encounter Visit Diagnoses Not on filedocumented in this encounter Additional Health Concerns Infection Onset Date Last Indicated Resolved Time Respiratory Rule Out - RPA 11/13/2022 11/13/2022 0 11/13/2022 10:28 AM HAND EMBROIDERER Respiratory Rule Out - RPA 11/28/2022 11/28/2022 0 11/28/2022 1:36 PM HAND EMBROIDERER Assessment Noted Time PHQ-9 Depression Total Score: 0 07/20/20 20 10:00 AM CDT documented as of this encounter Care Teams Optical Systems Engineer Relationship Specialty Start Date End Date Romaine Bolanos MD [address] [place] [address] PCP - General Internal Medicine 12/05/15 Curry Garcia MD #[address] [address] General Surgery 12/06/15 Robbin Shelton PAC [address] [place] [address] Physician Rn Supplemental Physician Rn Supplemental 02/11/24 documented as of this encounter
--- OUTSIDE RECORDS SUMMARY | 2025-01-15 15:05 | XMS_ITS | Encounter Summary ---
Author Organization [facility] Address [address] [place] [address] Phone Care Team Providers Care Triple Valve Tester Name Role Phone Romaine Bolanos MD Primary Care Provider [phone] Curry Garcia MD Unavailable [phone] Robbin Shelton PAC Unavailable [phone] Reason for Visit * Reason Comments Medication Refill Encounter Details Date Type Department Care Team (Late st Contact Info) Description 12/17/2020 Refill [facility] - Internal Medicine [facility] [address] [place] [address] Romaine Bolanos MD [address] [place] [address] Medication Refill Social History Tobacco [...] Description 01/17/2025 2:00 PM CDT [facility] [address] [place] [address] Joan Kaufman, PAC [address] [place] [address] Jorge L Pan, BEULAH [place] Discharge Disposition: Discharged to home or Selfcare 01/26/2025 1:00 PM CDT Physical Therapy [facility] [address] [place] [address] Joan Kaufman, PAC [address] [place] [address] Jorge L Pan PTA [place] 01/28/2025 3:15 PM CDT Physical Therapy [facility] [address] [place] [address] Joan Kaufman, PAC [address] [place] [address] Zainab Butt PT [place] 04/14/2025 8:45 AM CDT Office Visit [facility] Medical Group - Internal Medicine - [place] [address] [place] [phone] Romaine Bolanos MD [address] [place] [address] documented as of this encounter Visit Diagnoses Not on filedocumented in this encounter Additional Health Concerns Infection Onset Date Last Indicated Resolved Time Respiratory Rule Out - RPA 11/13/2022 11/13/2022 0 11/13/2022 10:28 AM HEARINGS REPORTER Respiratory Rule Out - RPA 11/28/2022 11/28/2022 0 11/28/2022 1:36 PM HEARINGS REPORTER Assessment Noted Time PHQ-9 Depression Total Score: 0 07/20/20 20 10:00 AM CDT documented as of this encounter Care Teams Triple Valve Tester Relationship Specialty Start Date End Date Romaine Bolanos MD [address] [place] [address] PCP - General Internal Medicine 12/05/15 Curry Garcia MD #[address] [address] General Surgery 12/06/15 Robbin Shelton PAC [address] [place] [address] Physician Security Control Room Officer Physician Security Control Room Officer 02/11/24 documented as of this encounter
--- OUTSIDE RECORDS SUMMARY | 2025-01-15 15:05 | XMS_ITS | Encounter Summary ---
Author Organization [facility] Address [address] [place] [address] Phone Care Team Providers Care Guest Services Lead Name Role Phone Romaine Bolanos MD Primary Care Provider [phone] Curry Garcia MD Unavailable [phone] Robbin Shelton PAC Unavailable [phone] Reason for Visit * PT/OT/ST (Routine) - Authorized Specialty Diagnoses / Procedures Referred By Clifford vee Referred To Contact Physical Therapy Diagnoses Arthralgia, unspecified joint Neck pain Acute pain of left shoulder Low back pain without sciatica, unspecified back pain laterality, unspecified chronicity Acute pain of right knee Right wrist pain Fall, initial encounter Joan Kaufman, PAC [address] [place] [address] Phone: tel: fax: Referral ID Status Reason Start Date Expiration Date V isits Requested Visits Authorized [id number] Authorized 08/09/2024 50 50 Encounter Details Date Type Department Care Team (Late st Contact Info) Description 01/14/2025 2:30 PM CDT Physical Therapy [facility] Rehab at [facility] [address] [place] [address] Joan Kaufman, PAC [address] [place] [address] Zainab Hawkins M, PT [place] Acute pain of right knee (Primary Dx) Discharge Disposition: Discharged to home or Selfcare Social History Tobacco Use Types Packs/Day Years Used Date Smoking Tobacco: Every Day Cigarettes 1 30 Passive Smoke Exposure: Current Smokeless Tobacco: Never Alcohol Use Standard Drinks/Week Comments Yes 0 (1 standard drink = 0.6 oz pur e alcohol) rarely [facility] Utilities Answer Date Recorded In the past 12 months has th e [place], gas, oil, or water [employer] threatened to shut off services in your [...] week 09/24/2024 How often do you attend [facility] or bahai services? More than 4 times per year 09/24/2024 Do you belong to any clubs o r organizations such as holiness groups, unions, fraternal or athletic groups, or [...] Total Score - Questions 1-9 0 09/23 [facility] [place] of Occupat ional Health - Occupational Stress [...] place to sleep or slept in a prison (including now)? No 11/25/2023 Housing Stability Vital Sign Answer Wesley e Recorded In the last 12 months, was t here a time when you were not able to pay the mortgage or rent on time? No 09/24/2024 In the past 12 months, how m any times have you moved where you were living? 0 09/24/2024 At any time in the past 12 m [facility], were you homeless or living in a prison (including now)? No 09/24/2024 Sexually Active Control Partners Comments Not Currently Comments No Sex and Gender Information Value Date Recorded Sex Assigned at Not on file Legal Sex Female 10:23 PM CDT Gender Identity Not on file Sexual Orientation Not on file documented as of this encounter Miscellaneous Notes * Plan of Care - Zainab Hawkins, PT - 01/14/2025 2:30 PM CDT Physical Therapy Visit - Electronically signed by: ZAINAB HAWKINS, PT January 14, 2025 Subjective SUBJECTIVE: Patient states she had MRI's and was told she has a tear in her left shoulder, right knee, and right wrist. She states as of now she does not plan on having surgery as it is not guaranteed. States she purchased a foam roller the other day and has not been able to use it at this time. Objective TREATMENT: Refer to [facility] PT Rehab Therapy flowsheet for minutes. Home Exercises distributed via handout. [employer] information: Access Code: [email or web address] URL: [email or web address] Date: 12/24/2024 Prepared by: Zainab Hawkins Exercises - Hooklying Single Leg Bent Knee Fallouts with Resistance - 1 x daily - 7 x weekly - 3 sets - 10 reps - Bridge with Abduction and Resistance Loop - 1 x daily - 7 x weekly - 3 sets - 10 reps - Supine March with Resistance Band - 1 x daily - 7 x weekly - 3 sets - 10 reps - Hooklying Clamshell with Resistance - 1 x daily - 7 x weekly - 3 sets - 10 reps - Seated Scapular Retraction - 1 x daily - 7 x weekly - 3 sets - 10 reps - 3 seconds hold - Scapular Retraction with Resistance - 1 x daily - 7 x weekly - 3 sets - 10 reps - Shoulder External Rotation with Anchored Resistance with Towel Under Elbow - 1 x daily - 7 x weekly - 3 sets - 10 reps - Standing Shoulder Internal Rotation with Anchored Resistance - 1 x daily - 7 x weekly - 3 sets - 10 reps - Prone Shoulder Extension - Single Arm - 1 x daily - 3 sets - 10 reps - Prone Shoulder Horizontal Abduction - 1 x daily - 3 sets - 10 reps - Supine Static Chest Stretch on Foam Roll - 1 x daily - 3 min hold - Standing Shoulder Flexion to 90 Degrees - 1 x daily - 7 x weekly - 2-3 sets - 10 reps - Standing Shoulder Scaption - 1 x daily - 7 x weekly - 2-3 sets - 10 reps Foam Roller - 3 min Prone Shoulder Extension - 2 lb 2 x 10 Prone Horizontal Abduction - 0 lb 2 x 10 Shoulder Flexion to 90 deg - 2 lb 2 x 10 Shoulder Abduction to 90 deg - 2 lb 2 x 10 Wall Push Up - 2 x 10 Scapular retraction 10 x 3 HELD Theraband ER and IR 10 x 3 each Blue HELD Shoulder extension with retraction HELD HEP: BKFO 10 x 2 B blueHELD Bridges 10 x 2 B blueHELD Supine marching 10 x 2 B blueHELD Clamshells 10 x 2 B blueHELD Interventions provided this session: therex Therapist provided Education and Skilled therapy by instructing pt in exercises and correcting form. ASSESSMENT: Patient presents following orthopedic appointment and MRI. She reports being diagnosed with multiple tears. Treatment again focused on reviewing HEP for shoulder as it is the most symptomatic area. Patient would benefit from continued skilled interventions, as stated in the plan of care, due to the following functional limitations:impaired ability to negotiate stairs, stand / walk prolonged periods without pain, work full shift without pain, perform house hold activities. Preferred Language: Mozambican All charges entered today are appropriate and separate from each other. PLAN Goals to be achieved by discharge. Patient will demonstrate the following: - Decrease left shoulder pain to 0/10 or less with functional activities to be able to lift / carry/ perform repetitive activities without limitations. - Decrease right knee pain to 2/10 or less with functional activities to be able to complete work /house hold activities with less difficulty. - Improve gait to the following: ambulate community distances without increased symptoms. Goal met,01/14/2025, TM - Increase right hip strength to 5/5 to be able to ascend/decend stairs to get upstairs to the bedroom/bathroom with less difficulty. - Demonstrates independence in therapeutic exercise program specific to relative impairments in order to optimize rehabilitation. Progressing, 01/14/2025, TM Planned Interventions This patient will likely be seen 1x/week for 8 visits for the following interventions: - Manual Therapy (95280) - Therapeutic Exercise (06480) - Therapeutic Activities (00507) - Neuro Muscular Re-education (92233) - Mechanical traction (95685) - Trigger Point Dry Needling (25553 or 60294) Precautions: none Treatment may be altered based on patient progression and symptoms. The plan of care, as well as the benefits and risks of therapy were reviewed with the patient and the patient consented to treatment . documented in this encounter Plan of Treatment Upcoming Encounters Date Type Department Care Team (Late st Contact Info) Description 01/17/2025 2:00 PM CDT Physical Therapy [facility] at [facility] [address] [place] [address] Joan Kaufman, PAC [address] [place] [address] Jorge L Pan PTA [place] Discharge Disposition: Discharged to home or Selfcare 01/26/2025 1:00 PM CDT Physical Therapy [facility] at [facility] [address], [address] [place] [address] Joan Kaufman, PAC [address] [place] [address] Jorge L Pan PTA [place] 01/28/2025 3:15 PM CDT Physical Therapy [facility] at [facility] [address], [address] [place] [address] Joan Kaufman, PAC [address] [place] [address] Zainab Hawkins PT [place] 04/14/2025 8:45 AM CDT Office Visit [facility] - Internal Medicine - [place] [address] [place] [phone] Romaine Bolanos MD [address] [place] [address] documented as of this encounter Visit Diagnoses Diagnosis Acute pain of right knee- Primary documented in this encounter Additional Health Concerns Assessment Noted Time PHQ-9 Depression Total Score: 0 10/11/19 25 9:48 AM TECHNICAL SALES ASSOCIATE documented as of this encounter Care Teams Guest Services Lead Relationship Specialty Start Date End Date Romaine Bolanos MD [address] [place] [address] PCP - General Internal Medicine 12/05/15 Curry Garcia MD [address] [address] General Surgery 12/06/15 Robbin Shelton, ARA [address] [place] [address] Physician Fast Food Team Member Physician Fast Food Team Member 02/11/24 documented as of this encounter
--- OUTSIDE RECORDS SUMMARY | 2025-01-15 15:05 | XMS_ITS | Encounter Summary ---
Author Organization [facility] Address [address] [place] [address] Phone Care Team Providers Care Network Specialist Name Role Phone Romaine Bolanos MD Primary Care Provider [phone] Curry Garcia MD Unavailable [phone] Robbin Shelton PAC Unavailable [phone] Reason for Visit * Reason Comments Medication Refill Encounter Details Date Type Department Care Team (Late st Contact Info) Description 06/19/[address] [facility] - Internal Medicine [facility] [address] [place] [address] Romaine Bolanos MD [address] [place] [address] Medication Refill Social History Tobacco [...] Description 01/17/2025 2:00 PM CDT [facility] [address] [place] [address] Joan Kaufman, PAC [address] [place] [address] Jorge L Pan PTA [place] Discharge Disposition: Discharged to home or Selfcare 01/26/2025 1:00 PM CDT Physical Therapy [facility] at [facility] [address] [place] [address] Joan Kaufman, PAC [address] [place] [address] Jorge L Pan PTA [place] 01/28/2025 3:15 PM CDT Physical Therapy [facility] [address] [place] [address] Joan Kaufman, PAC [address] [place] [address] Zainab Butt PT [place] 04/14/2025 8:45 AM CDT Office Visit [facility] - Internal Medicine - [place] [address] [place] [phone] Romaine Bolanso MD [address] [place] [address] documented as of this encounter Visit Diagnoses Not on filedocumented in this encounter Additional Health Concerns Infection Onset Date Last Indicated Resolved Time Respiratory Rule Out - RPA 11/13/2022 11/13/2022 0 11/13/2022 10:28 AM CRIB ATTENDANT Respiratory Rule Out - RPA 11/28/2022 11/28/2022 0 11/28/2022 1:36 PM CRIB ATTENDANT documented as of this encounter Care Teams Network Specialist Relationship Specialty Start Date End Date Romaine Bolanos MD [address] [place] [address] PCP - General Internal Medicine 12/05/15 Curry Garcia MD [address] [address] General Surgery 12/06/15 Robbin Shelton PAC [address] [place] [address] Physician Pictures Editor Physician Pictures Editor 02/11/24 documented as of this encounter
--- OUTSIDE RECORDS SUMMARY | 2025-01-15 15:05 | XMS_ITS | Encounter Summary ---
Author Organization [facility] Address [address] [place] [address] Phone Care Team Providers Care Enterprise Systems Manager Name Role Phone Romaine Bolanos MD Primary Care Provider [phone] Curry Garcia MD Unavailable [phone] Robbin Shelton PAC Unavailable [phone] Reason for Visit * Reason Comments Medication Refill Encounter Details Date Type Department Care Team (Late st Contact Info) Description 08/25/2022 Refill [facility] - Internal Medicine [facility] [address] [place] [address] Romaine Bolanos MD [address] [place] [address] Medication Refill Social History Tobacco [...] Office Visit Romaine Bolanos MD [facility] 02/06/22 Office Visit Romaine Bolanos MD [facility] 11/06/21 Office Visit Romaine Bolanos MD [facility] Showing recent visits within past 365 days and meeting all other requirements Future Appointments Date Type Provider Dept 09/12/22 Appointment Lab, [facility] 09/17/22 Appointment Romaine Bolanos MD [facility] Showing future appointments within next 90 days [...] Office Visit Romaine Bolanos MD [facility] Showing recent visits within past 182 days and meeting all other requirements Future Appointments Date Type Provider Dept 09/12/22 Appointment Lab, [facility] 09/17/22 Appointment Romaine Bolanos MD [facility] Showing future appointments within next 90 days and meeting all other requirements CTOR DIGITAL ADVERTISING documented in this encounter Plan of Treatment Upcoming Encounters Date Type Department Care Team (Late st Contact Info) Description 01/17/2025 2:00 PM CDT [facility] [address], [address] [place] [address] Joan Kaufman, PAC [address] [place] [address] Jorge L Pan, ASSISTANT COMMUNITY MANAGER [place] Discharge Disposition: Discharged to home or Selfcare 01/26/2025 1:00 PM CDT Physical Therapy [facility] Re[facility] at [facility] [address] [place] [address] Joan Kaufman, PAC [address] [place] [address] Jorge L Pan PTA [place] 01/28/2025 3:15 PM CDT [facility] [address] [place] [address] Joan Kaufman, PAC [address] [place] [address] Zainab Butt, PT [place] 04/14/2025 8:45 AM CDT Office Visit [facility] - Internal Medicine - [place] [address] [place] [phone] Romaine Bolanos MD [address] [place] [address] documented as of this encounter Visit Diagnoses Not on filedocumented in this encounter Additional Health Concerns Infection Onset Date Last Indicated Resolved Time Respiratory Rule Out - RPA 11/13/2022 11/13/2022 0 11/13/2022 10:28 AM DIRECTOR DIGITAL ADVERTISING Respiratory Rule Out - RPA 11/28/2022 11/28/2022 0 11/28/2022 1:36 PM DIRECTOR DIGITAL ADVERTISING Assessment Noted Time PHQ-9 Depression Total Score: 0 07/25/20 21 12:00 PM CDT documented as of this encounter Care Teams Enterprise Systems Manager Relationship Specialty Start Date End Date Romaine Bolanos MD [address] [place] [address] PCP - General Internal Medicine 12/05/15 Curry Garcia MD [address] [address] General Surgery 12/06/15 Robbin Shelton PAC [address] [place] [address] Physician School Crossing Guard Supervisor Physician School Crossing Guard Supervisor 02/11/24 documented as of this encounter
--- OUTSIDE RECORDS SUMMARY | 2025-01-15 15:05 | XMS_ITS | Encounter Summary ---
Author Organization [facility] Address [address] [place] [address] Phone Care Team Providers Care Restaurant Front Manager Name Role Phone Romaine Bolanos MD Primary Care Provider [phone] Curry Garcia MD Unavailable [phone] Robbin Shelton PAC Unavailable [phone] Reason for Visit * Reason Comments Medication Refill Encounter Details Date Type Department Care Team (Late st Contact Info) Description 02/01/2024 Refill [facility] - Internal Medicine [facility] [address] [place] [address] Romaine Bolanos MD [address] [place] [address] Medication Refill Social History Tobacco Use Types Packs/Day Years Used Date Smoking Tobacco: Every Day Cigarettes 1 30 Passive Smoke Exposure: Current Smokeless Tobacco: Never Alcohol Use Standard Drinks/Week Comments Yes 0 (1 standard drink = 0.6 oz pur e alcohol) rarely [facility] Utilities Answer Date Recorded In the [...] How often do you attend chur or gnosticism services? More than 4 times per year 11/25/2023 Do you belong to any clubs o r organizations such as mormonism groups, unions, fraternal or athletic groups, or [...] Total Score - Questions 1-9 0 01/2024 [facility] - Occupational Stress Questionnaire Answer Date [...] place to sleep or slept in a residential (including now)? No 11/25/2023 Sexually Active Control [...] AM CDT Medication([facility]) [facility] Medication Refill Standing Order [...] Office Visit Romaine Bolanos MD [facility] 11/25/23 Office Visit Romaine Bolanos MD [facility] 08/26/23 Office Visit Romaine Bolanos MD [facility] 07/14/23 Appointment Romaine Bolanos MD [facility] 05/20/23 Office Visit Romaine Bolanos MD [facility] Showing recent visits within past 365 days and meeting all other requirements Future Appointments Date Type Provider Dept 03/16/24 Appointment [facility] [place] Showing future appointments within next 90 days [...] 12/25/23 Office Visit Romaine Bolanos MD [facility] 11/25/23 Office Visit Romaine Bolanos MD [facility] 08/26/23 Office Visit Romaine Bolanos MD [facility] 07/14/23 Appointment Romaine Bolanos MD [facility] 05/20/23 Office Visit Romaine Bolanos MD [facility] [place] Showing recent visits within past 365 days and meeting all other requirements Future Appointments Date Type Provider Dept 03/16/24 Appointment Romaine Bolanos MD [facility] Showing future appointments within next 90 days and meeting all other requirements Passed - GFR on record in past 12 months GFR, EST. NONAFRICAN Date Value Ref Range Status 11/25/2023 >60 >=60 Final documented in this encounter Plan of Treatment Upcoming Encounters Date Type Department Care Team (Late st Contact Info) Description 01/17/2025 2:00 PM CDT [facility] [address] [place] [address] Joan Kaufman, PAC [address] [place] [address] Jorge L Pan, BEULAH [place] Discharge Disposition: Discharged to home or Selfcare 01/26/2025 1:00 PM CDT Physical Therapy [facility] at [facility] [address] [place] [address] Joan Kaufman, PAC [address] [place] [address] Jorge L Pan PTA [place] 01/28/2025 3:15 PM CDT Physical Therapy [facility] at [facility] [address], [address] [place] [address] Joan Kaufman, PAC [address] [place] [address] Zainab Butt, PT [place] 04/14/2025 8:45 AM CDT [facility] [address] [place] [address] Romaine Bolanos MD [address] [place] [address] documented as of this encounter Visit Diagnoses Not on filedocumented in this encounter Additional Health Concerns Assessment Noted Time PHQ-9 Depression Total Score: 0 11/25/19 24 3:06 PM FITTER HAND documented as of this encounter Care Teams Restaurant Front Manager Relationship Specialty Start Date End Date Romaine Bolanos MD [address] [facility] [address] [place] [address] PCP - General Internal Medicine 12/05/15 Curry Garcia MD [address] [address] General Surgery 12/06/15 Robbin Shelton PAC [address] [place] [address] Physician Gin Feeder Physician Gin Feeder 02/11/24 documented as of this encounter
--- OUTSIDE RECORDS SUMMARY | 2025-01-15 15:05 | XMS_ITS | Encounter Summary ---
Author Organization [facility] Address [address] [place] [address] Phone Care Team Providers Care Vest Presser Name Role Phone Romaine Bolanos MD Primary Care Provider [phone] Curry Garcia MD Unavailable [phone] Robbin Shelton PAC Unavailable [phone] Reason for Visit * Reason Comments Medication Refill Encounter Details Date Type Department Care Team (Late st Contact Info) Description 05/23/2022 Refill [facility] - Internal Medicine [facility] [address] [place] [address] Romaine Bolanos MD [address] [place] [address] Medication Refill Social History Tobacco [...] Dept 02/06/22 Office Visit Rom[facility] [place] Showing recent visits within past 182 days and meeting all other requirements Future Appointments Date Type Provider Dept 05/28/22 Appointment Romaine Bolanos MD [facility] [place] Showing future appointments within next 90 days and meeting all other requirements documented in this encounter Plan of Treatment Upcoming Encounters Date Type Department Care Team (Late st Contact Info) Description 01/17/2025 2:00 PM CDT Physical Therapy [facility] [address] [place] [address] Joan Kaufman, PAC [address] [place] [address] Jorge L Pan, RECORD PRESS SUPERVISOR [place] Discharge Disposition: Discharged to home or Selfcare 01/26/2025 1:00 PM CDT [facility] [address] [place] [address] Joan Kaufman, PAC [address] [place] [address] Jorge L Pan PTA [place] 01/28/2025 3:15 PM CDT Physical [facility] [address] [place] [address] Joan Kaufman, PAC [address] [place] [address] Zainab Butt, PT [place] 04/14/2025 8:45 AM CDT Office Visit [facility] - Internal Medicine - [place] [address] [place] [address] Romaine Bolanos MD [address] [place] [address] documented as of this encounter Visit Diagnoses Not on filedocumented in this encounter Additional Health Concerns Infection Onset Date Last Indicated Resolved Time Respiratory Rule Out - RPA 11/13/2022 11/13/2022 0 11/13/2022 10:28 AM RECREATION COORDINATOR Respiratory Rule Out - RPA 11/28/2022 11/28/2022 0 11/28/2022 1:36 PM RECREATION COORDINATOR Assessment Noted Time PHQ-9 Depression Total Score: 0 07/25/20 21 12:00 PM CDT documented as of this encounter Care Teams Vest Presser Relationship Specialty Start Date End Date Romaine Bolanos MD [address] [place] [address] PCP - General Internal Medicine 12/05/15 Curry Garcia MD [address] [address] General Surgery 12/06/15 Robbin Shelton PAC [address] [place] [address] Physician Sorting Livestock Worker Physician Sorting Livestock Worker 02/11/24 documented as of this encounter
--- OUTSIDE RECORDS SUMMARY | 2025-01-15 15:05 | XMS_ITS | Encounter Summary ---
Author Organization [facility] Address [address] [place] [address] Phone Care Team Providers Care Meter Shop Superintendent Name Role Phone Romaine Bolanos MD Primary Care Provider [phone] Curry Garcia MD Unavailable [phone] Robbin Shelton PAC Unavailable [phone] Reason for Visit * Reason Comments Medication Refill Encounter Details Date Type Department Care Team (Late st Contact Info) Description 09/25/2020 Refill [facility] Medical [facility] - Internal Medicine [facility] [address] [place] [address] Romaine Bolanos MD [address] [place] [address] Medication Refill Social History Tobacco [...] 9:23 AM CST Please review and sign. GER GENERATION documented in this encounter Plan of Treatment Upcoming Encounters Date Type Department Care Team (Late st Contact Info) Description 01/17/2025 2:00 PM CDT Physical [facility] [address], [address] [place] [address] Joan Kaufman, PAC [address] [place] [address] Jorge L Pan, BEUL[place] Discharge Disposition: Discharged to home or Selfcare 01/26/2025 1:00 PM CDT Physical Therapy [facility] Rehab at [facility] [address] [place] [address] Joan Kaufman, PAC [address] [place] [address] Jorge L Pan PTA [place] 01/28/2025 3:15 PM CDT Physical Therapy [facility] Rehab at [facility] [address] [place] [address] Joan Kaufman, PAC [address] [place] [address] Zainab Butt PT [place] 04/14/2025 8:45 AM CDT Office Visit [facility] Medical Group - Internal Medicine - [place] [address] [place] [phone] Romaine Bolanos MD [address] [place] [address] documented as of this encounter Visit Diagnoses Not on filedocumented in this encounter Additional Health Concerns Infection Onset Date Last Indicated Resolved Time Respiratory Rule Out - RPA 11/13/2022 11/13/2022 0 11/13/2022 10:28 AM MANAGER GENERATION Respiratory Rule Out - RPA 11/28/2022 11/28/2022 0 11/28/2022 1:36 PM MANAGER GENERATION Assessment Noted Time PHQ-9 Depression Total Score: 0 07/20/20 20 10:00 AM CDT documented as of this encounter Care Teams Meter Shop Superintendent Relationship Specialty Start Date End Date Romaine Bolanos MD [address] [place] [address] PCP - General Internal Medicine 12/05/15 Curry Garcia MD [address] [address] General Surgery 12/06/15 Robbin Shelton PAC [address] [place] [address] Physician Gas Pit Worker Physician Gas Pit Worker 02/11/24 documented as of this encounter
--- OUTSIDE RECORDS SUMMARY | 2025-01-15 15:05 | XMS_ITS | Encounter Summary ---
Author Organization [facility] Address [address] [place] [address] Phone Care Team Providers Care Ergonomist Name Role Phone Romaine Bolanos MD Primary Care Provider [phone] Curry Garcia MD Unavailable [phone] Robbin Shelton PAC Unavailable [phone] Reason for Visit * Reason Comments Medication Refill Encounter Details Date Type Department Care Team (Late st Contact Info) Description 01/14/2021 Refill [facility] Medical Group - Internal Medicine [facility] [address] [place] [address] Romaine Bolanos MD [address] [place] [address] Medication Refill Social History Tobacco [...] Description 01/17/2025 2:00 PM CDT Physical Therapy [facility] at [facility] [address] [place] [address] Joan Kaufman, PAC [address] [place] [address] Jorge L Pan, PARKING LOT SPOTTER [place] Discharge Disposition: Discharged to home or Selfcare 01/26/2025 1:00 PM CDT Physical Therapy [facility] at [facility] [address] [place] [address] Joan Kaufman, PAC [address] [place] [address] Jorge L Pan PTA [place] 01/28/2025 3:15 PM CDT Physical Therapy [facility] at [facility] [address] [place] [address] Joan Kaufman, PAC [address] [place] [address] Zainab Butt PT [place] 04/14/2025 8:45 AM CDT [facility] - [place] [address] [place] [address] Romaine Bolanos MD [address] [place] [address] documented as of this encounter Visit Diagnoses Not on filedocumented in this encounter Additional Health Concerns Infection Onset Date Last Indicated Resolved Time Respiratory Rule Out - RPA 11/13/2022 11/13/2022 0 11/13/2022 10:28 AM CRUTCHING CONTRACTOR Respiratory Rule Out - RPA 11/28/2022 11/28/2022 0 11/28/2022 1:36 PM CRUTCHING CONTRACTOR Assessment Noted Time PHQ-9 Depression Total Score: 0 07/20/20 20 10:00 AM CDT documented as of this encounter Care Teams Ergonomist Relationship Specialty Start Date End Date Romaine Bolanos MD [address] [place] [address] PCP - General Internal Medicine 12/05/15 Curry Garcia MD [address] [address] General Surgery 12/06/15 Robbin Shelton PAC [address] [place] [address] Physician Thread Winder Automatic Physician Thread Winder Automatic 02/11/24 documented as of this encounter
--- OUTSIDE RECORDS SUMMARY | 2025-01-15 15:05 | XMS_ITS | Encounter Summary ---
Author Organization [facility] Address [address] [place] [address] Phone Care Team Providers Care Visual Journalist Name Role Phone Romaine Bolanos MD Primary Care Provider [phone] Curry Garcia MD Unavailable [phone] Robbin Shelton PAC Unavailable [phone] Reason for Visit * Reason Comments Medication Refill Encounter Details Date Type Department Care Team (Late st Contact Info) Description 10/26/2023 Refill [facility] Medical Group - Internal Medicine [facility] [address] [place] [address] Romaine Bolanos MD [address] [place] [address] Medication Refill Social History Tobacco [...] 08/26/23 Office Visit Romaine Bolanos MD [facility] 07/14/23 Appointment Romaine Bolanos MD [facility] 05/20/23 Office Visit Romaine Bolanos MD [facility] 12/19/22 Office Visit Romaine Bolanos MD [facility] 12/05/22 Telemedicine Romaine Bolanos MD [facility] 11/28/22 Telemedicine Romaine Bolanos MD [facility] Showing recent visits within past 365 days and meeting all other requirements Future Appointments Date Type Provider Dept 11/19/23 Appointment [facility] [place] 11/25/23 Appointment Romaine Bolanos MD [facility] Showing future appointments within next 90 days and meeting all other requirements Passed - No active on record BING AND HEATING MECHANIC documented in this encounter Plan of Treatment Upcoming Encounters Date Type Department Care Team (Late st Contact Info) Description 01/17/2025 2:00 PM CDT Physical Therapy [facility] [address], [address] [place] [address] Joan Kaufman, PAC [address] [place] [address] Jorge L Pna, WAFER FABRICATOR [place] Discharge Disposition: Discharged to home or Selfcare 01/26/2025 1:00 PM CDT Physical Therapy [facility] at [facility] [address] [place] [address] Joan Kaufman, PAC [address] [place] [address] Jorge L Pan PTA [place] 01/28/2025 3:15 PM CDT Physical Therapy [facility] at [address] [place] [address] Joan Kaufman, PAC [address] [place] [address] Zainab Butt PT [place] 04/14/2025 8:45 AM CDT Office Visit [facility] Medical Group - Internal Medicine - [place] [address] [place] [address] Romaine Bolanos MD [address] [place] [address] documented as of this encounter Visit Diagnoses Not on filedocumented in this encounter Additional Health Concerns Assessment Noted Time PHQ-9 Depression Total Score: 0 08/26/20 23 3:03 PM PLUMBING AND HEATING MECHANIC documented as of this encounter Care Teams Visual Journalist Relationship Specialty Start Date End Date Romaine Bolanos MD [address] [place] [place] [address] PCP - General Internal Medicine 12/05/15 Curry Garcia MD [address] [address] General Surgery 12/06/15 Robbin Shelton PAC [address] [place] [address] Physician Advanced Analytics Associate Physician Advanced Analytics Associate 02/11/24 documented as of this encounter
--- OUTSIDE RECORDS SUMMARY | 2025-01-15 15:05 | XMS_ITS | Encounter Summary ---
Author Organization [facility] Address [address] [place] [address] Phone Care Team Providers Care Printed Circuit Boards Plasma Etcher Name Role Phone Romaine Bolanos MD Primary Care Provider [phone]- [phone] Curry Garcia MD Unavailable [phone] Robbin Shelton PAC Unavailable [phone] Reason for Visit * Reason Comments Medication Refill Encounter Details Date Type Department Care Team (Late st Contact Info) Description 09/11/2023 Refill [facility] Medical Group - Internal Medicine [facility] [address] [place] [address] Romaine Bolanos MD [address] [place] [place] [address] Medication Refill Social History Tobacco [...] Office Visit Romaine Bolanos MD [facility] 07/14/23 Appointment Romaine Bolanos MD [facility] 05/20/23 Office Visit Romaine Bolanos MD [facility] [place] 12/19/22 Office Visit Romaine Bolanos MD [facility] [place] 12/05/22 Telemedicine Romaine Bolanos MD [facility] [place] 11/28/22 Telemedicine Romaine Bolanos MD [facility] [place] 09/20/22 Office Visit Romaine Bolanos MD [facility] [place] Showing recent visits within past 365 days and meeting all other requirements Future Appointments Date Type Provider Dept 11/19/23 Appointment [facility] [place] 11/25/23 Appointment Romaine Bolanos MD [facility] [place] Showing future appointments within next 90 days and meeting all other requirements DIP WORKER documented in this encounter Plan of Treatment Upcoming Encounters Date Type Department Care Team (Late st Contact Info) Description 01/17/2025 2:00 PM CDT Physical Therapy [facility] at [facility] [address], [address] [address] Joan Kaufman, PAC [address] [place] [address] Jorge L Pan, RETAIL EVENT COORDINATOR [place] Discharge Disposition: Discharged to home or Selfcare 01/26/2025 1:00 PM CDT [facility] [address], [address] [place] [address] Joan Kaufman, PAC [address] [place] [address] Jorge L Pan PTA [place] 01/28/2025 3:15 PM CDT [facility] [address] [place] [address] Joan Kaufman, PAC [address] [facility] [facility] [address] Zainab Butt, [facility] 04/14/2025 8:45 AM CDT Office Visit [facility] Medical Group - Internal Medicine - [place] [address] [place] [address] Romaine Bolanos MD [address] [facility] [address] documented as of this encounter Visit Diagnoses Diagnosis Type 2 diabetes mellitus without complication, with long-term current use of insulin documented in this encounter Additional Health Concerns Assessment Noted Time PHQ-9 Depression Total Score: 0 08/26/20 23 3:03 PM DRY DIP WORKER documented as of this encounter Care Teams Printed Circuit Boards Plasma Etcher Relationship Specialty Start Date End Date Romaine Bolanos MD [address] [place] [address] PCP - General Internal Medicine 12/05/15 Curry Garcia MD [address] [address] General Surgery 12/06/15 Robbin Shelton PAC [address] [place] [address] Physician Account Leader Physician Account Leader 02/11/24 documented as of this encounter
--- OUTSIDE RECORDS SUMMARY | 2025-01-15 15:05 | XMS_ITS | Encounter Summary ---
Author Organization [facility] Address [address] [place] [address] Phone Care Team Providers Care Cash Analyst Name Role Phone Romaine Bolanos MD Primary Care Provider [phone]- [phone] Curry Garcia MD Unavailable [phone] Robbin Shelton PAC Unavailable [phone] Reason for Visit * Reason Comments Medication Refill Encounter Details Date Type Department Care Team (Late st Contact Info) Description 09/01/2022 Refill [facility] - [facility] [address] [place] [place] [address] Romaine Bolanos MD [address] [place] [address] Medication Refill Social History Tobacco [...] 05/28/22 Office Visit Romaine Bolanos MD [facility] Showing recent visits within past 182 days and meeting all other requirements Future Appointments Date Type Provider Dept 09/12/22 Appointment [facility] Gandhi 09/17/22 Appointment Romaine Bolanos MD [facility] Showing future appointments within next 90 days and meeting all other requirements Passed - Patient has established therapy with [facility] for at least 6 months LRY ENAMELER documented in this encounter Plan of Treatment Upcoming Encounters Date Type Department Care Team (Late st Contact Info) Description 01/17/2025 2:00 PM CDT Physical Therapy [facility] at [facility] [address] [place] [address] Joan Kaufman, PAC [address] [place] [address] Jorge L Pan, BEULAH [place] Discharge Disposition: Discharged to home or Selfcare 01/26/2025 1:00 PM CDT Physical Therapy [facility] at [facility] [address] [place] [address] Joan Kaufman, PAC [address] [place] [address] Jorge L Pan PTA [place] 01/28/2025 3:15 PM CDT [facility] [address] [place] [address] Joan Kaufman, PAC [address] [place] [address] Zainab Butt PT [place] 04/14/2025 8:45 AM CDT Office Visit [facility] - Internal [facility] [address] [facility] [address] Romaine Bolanos MD [address] [place] [address] documented as of this encounter Visit Diagnoses Not on filedocumented in this encounter Additional Health Concerns Infection Onset Date Last Indicated Resolved Time Respiratory Rule Out - RPA 11/13/2022 11/13/2022 0 11/13/2022 10:28 AM JEWELRY ENAMELER Respiratory Rule Out - RPA 11/28/2022 11/28/2022 0 11/28/2022 1:36 PM JEWELRY ENAMELER Assessment Noted Time PHQ-9 Depression Total Score: 0 07/25/20 21 12:00 PM CDT documented as of this encounter Care Teams Cash Analyst Relationship Specialty Start Date End Date Romaine Bolanos MD [address] [place] [address] PCP - General Internal Medicine 12/05/15 Curry Garcia MD [address] [facility] [address] [place] [address] General Surgery 12/06/15 Robbin Shelton, PAC [address] [place] [address] Physician Bonded Strand Operator Physician Bonded Strand Operator 02/11/24 documented as of this encounter
[2025-01-15 15:06] VITALS: BP 136/73; PULSE 84; RESP 16; TEMP 36.8; O2SAT 100
[2025-01-15 15:58] LABS: EDUAAPPEAR Clots; EDUABILI Negative (Negative); EDUABLOOD 3+ (Negative); EDUACOLOR1 Red; EDUAGLUCOSE Negative (Negative); EDUAKETONE Negative (Negative); EDUALEUKO 2+ (Negative); EDUANITRATE Negative (Negative); EDUAPROTEIN 3+ (Negative)
--- NOTE | 2025-01-15 16:45 | ED_ITS ---
HPI - General Adult General Chief complaint: Urogenital-Female Stated complaint: Urinary Problem Source: patient Mode of arrival: ambulatory Limitations: no limitations History of Present Illness HPI narrative: Patient presents for evaluation of urinary symptoms. Symptom onset today. She indicates she completed antibiotic therapy for urinary tract infection within the last 24 hours. She was treated with Augmentin. Urine culture grew out Klebsiella which was susceptible to Augmentin among other agents. She reports urinary frequency, vaginal pressure, and hematuria. She denies any fever, chills, nausea, vomiting, vaginal discharge or bleeding. Related Data Home Medications ?Medication ?Instructions ?Recorded ?Confirmed ?Last Taken ?Type Humalog Pen 12/31/24 Unknown History Ozempic 12/31/24 Unknown History aspirin 12/31/24 Unknown History atorvastatin 12/31/24 Unknown History carvedilol 12/31/24 Unknown History citalopram 12/31/24 Unknown History ezetimibe 12/31/24 Unknown History lisinopril 12/31/24 Unknown History potassium 12/31/24 Unknown History Allergies Allergy/AdvReac Type Severity Reaction Status Date / Time hydrocodone AdvReac Intermediate vomiting Verified 01/15/25 15:15 Review of Systems Review of Systems: CONSTITUTIONAL: Denies fever, chills, or sweats. EYES: Denies visual changes, redness, or discharge. ENT: Denies rhinorrhea, congestion, sore throat, or otalgia. CARDIOVASCULAR: Denies chest pain, palpitations, or edema. RESPIRATORY: Denies cough or dyspnea. GASTROINTESTINAL: Denies abdominal pain, nausea, vomiting, or diarrhea. GENITOURINARY: Reports urinary frequency, vaginal pressure and hematuria. Denies vaginal bleeding or discharge. SKIN: Denies rash or itching. MUSCULOSKELETAL: Denies back pain, joint pain, or myalgia. NEUROLOGIC: Denies headache, numbness, dizziness, or weakness. PSYCHIATRIC: Denies anxiety or depression. [facility] Past Medical History Medical History History of high cholesterol History of high blood pressure Surgical History Surgical History No pertinent past surgical history Family History Family History Mother Family history non-contributory Social History Social History Smoking packs per day: 1 Smoking cigarettes per day: 20.0 Smoking status: Current every day smoker Alcohol intake: current Alcohol use details: rare Substance use: never Gender identity (if verbalized by the patient): Female Spiritual care concerns: No Exam Narrative: GENERAL: Well-appearing, well-nourished, and in no acute distress. HEAD: Normocephalic, atraumatic. EYES: PERRLA and EOMI. ENT: Nares clear, no rhinorrhea or epistaxis. Mucous membranes moist. Oropharynx without tonsillar hypertrophy exudate or other lesions. Bilateral TMs pearly zhang nonbulging NECK: Supple. No adenopathy or masses. No carotid bruits or JVD CHEST: Clear to auscultation. No respiratory distress. No wheezes rales or rhonchi HEART: Regular rate and rhythm. No murmur heard. Normal peripheral pulses. ABDOMEN: Soft, nontender, nondistended, normal active bowel sounds. EXTREMITIES: Normal range of motion. No edema. SKIN: Warm, dry, no rash. NEURO: No focal deficits. Alert and oriented x3. PSYCH: Normal mood and affect. Course Course Emergency Course: This is a 59-year-old female who presented for evaluation of urinary symptoms. She has leukocytes present in her urine today. Reviewed urine culture which grew out Klebsiella susceptible to Augmentin among other agents including Bactrim. Will discharge patient with Bactrim. Send urine for culture. Follow- up with primary provider. Go to the ER for worsening symptoms. Patient in agreement with plan of care Level of Care: Express Care Visit Vital Signs Vital signs: Vital Signs Temperature 36.8 C 01/15/25 15:06 Pulse Rate 84 01/15/25 15:06 Respiratory Rate 16 01/15/25 15:06 Blood Pressure 136/73 01/15/25 15:06 Pulse Oximetry 100 01/15/25 15:06 Oxygen Delivery Room Air 01/15/25 15:06 Temperature 36.8 C 01/15/25 15:06 Pulse Rate 84 01/15/25 15:06 Respiratory Rate 16 01/15/25 15:06 Blood Pressure 136/73 01/15/25 15:06 Pulse Oximetry 100 01/15/25 15:06 Oxygen Delivery Room Air 01/15/25 15:06 Medical Decision Making Vital Signs Vital Signs: Vital Signs Temperature 36.8 C 01/15/25 15:06 Pulse Rate 84 01/15/25 15:06 Respiratory Rate 16 01/15/25 15:06 Blood Pressure 136/73 01/15/25 15:06 Pulse Oximetry 100 01/15/25 15:06 Oxygen Delivery Room Air 01/15/25 15:06 Temperature 36.8 C 01/15/25 15:06 Pulse Rate 84 01/15/25 15:06 Respiratory Rate 16 01/15/25 15:06 Blood Pressure 136/73 01/15/25 15:06 Pulse Oximetry 100 01/15/25 15:06 Oxygen Delivery Room Air 01/15/25 15:06 Lab Data Labs: Lab Results 01/15/25 Range/Units 15:55 POC Urine Color Red POC Urine Clarity Clots POC Urine pH 6.0 POC Ur Specif [place] 1.020 POC Urine Protein 3+ (Negative) POC Ur Glucose (UA) Negative (Negative) POC Urine Ketones Negative (Negative) POC Urine Blood 3+ (Negative) POC Urine Nitrite Negative (Negative) POC Urine Bilirubin Negative (Negative) POC Urine Urobilinogen 1.0 POC U Leukocyte Esteras 2+ (Negative) Discharge Plan Discharge Clinical Impression: Urinary tract infection Patient Disposition: Home Condition: Stable Instructions: Antibiotic Form, Urinary Tract Infection in Women (DC) Patient Language: Bol[place]ian Prescriptions: New sulfamethoxazole-trimethoprim [Bactrim DS] 800-160 mg tablet 1 tablet PO Q12H Qty: 14 0RF No Action atorvastatin citalopram Ozempic aspirin lisinopril Humalog Pen carvedilol ezetimibe potassium Follow-up/Referrals: Luis Miguel,Romaine Dawn MD [Primary Care Provider] - Time of Disposition: 15:54
== END 2025-01-15 15:57 | disposition home or self-care (01) ==
PROVIDERS: Emergency Provider Nurse Practitioner; PCP Internal Medicine
DX: N39.0 Urinary tract infection, site not specified (principal); F17.210 Nicotine dependence, cigarettes, uncomplicated; I10 Essential (primary) hypertension; E78.00 Pure hypercholesterolemia, unspecified
CPT/HCPCS: 81003; 87086; 99213; G0463